=== PATIENT | male | born 1970 | race Caucasian/White ===

== ENCOUNTER 2016-03-28 13:05 | Inpatient (IN) | payer OTHER ==
[2016-03-28 14:59] LABS: Hematocrit 33.5 % (42.0-52.0); Hemoglobin 10.6 gm/dL (13.5-18.0); Mean Cell Volume 83.5 fl (78-100); Mean Corpuscular Hemoglobin 26.4 pg (27-31); Mean Corpuscular Hgb Conc 31.6 g/dl (32-36); Mean Platelet Volume 9.7 fl (6.0-9.5); Neutrophil # 11.8 K/mm3 (1.3-6.0); Neutrophil % 83.4 % (42-75.0); Platelet Count 340 K/mm3 (150-450); Red Blood Count 4.01 M/mm3 (4.7-6.0); Red Cell Distribution Width 13.9 % (11.5-14.0); White Blood Count 14.1 K/mm3 (4.0-10.5)
[2016-03-28 15:12] LABS: Albumin * 2.7 gm/dl (3.4-5.0); Anion Gap 11.8 mmol/L (6.8-13.8); BUN/Creatinine Ratio 13.4 (9.0-21.6); Bilirubin, Total 0.6 mg/dL (0.0-1.1); Ca. Corrected For Albumin 9.4 mg/dL (8.4-10.2); Calcium * 8.7 mg/dL (7.9-10.9); Carbon Dioxide 28.1 mmol/L (24-32.6); Potassium 3.9 mmol/L (3.4-4.6); Total Protein 8.9 gm/dL (6.2-8.2)
[2016-03-28 15:14] LABS: CRP 12.9 mg/dL (0.0-0.9)
--- NOTE | 2016-03-28 17:56 | ERNOTE ---
Integumentary HPI - Narrative Date of Service: 03/28/16 - General Time Seen by Provider: 03/28/16 17:32 Source: patient Exam Limitations: no limitations - Immun/Allergies/Home Medications Immunizations: IMMUNIZATION HX Immunizations Up to Date Yes History of Influenza Vaccine Yes Hx Pneumococcal Vaccination Yes Allergies/Adverse Reactions: Allergies Allergy/AdvReac Type Severity Reaction Status Date / Time gabapentin AdvReac Mild HYPOTENSION, Verified 02/26/16 15:08 NAUSEA, DIZZINESS WITH INCREASED DOSE Home Medications: HOME MEDICATIONS Insulin Glargine,Hum.rec.anlog [Lantus] 45 units SC QPM 08/10/14 [Last Taken 04/09] Insulin Lispro [Humalog] 16 units SC TIDWM 07/26/15 [Last Taken Unknown] - History of Present Illness Narrative: Pt. comes in with c/o worsening cellulitis and L foot ulcer. Pt. was treated inpatient for this a month ago and has not followed up since being discharged. Pt. states that two days ago he noticed the pain and redness spreading to his knee and he was feeling weak and fevered. Review of Systems - Review of Systems Constitutional: Present: recent illness, fever, chills, weakness, fatigue, malaise EYE: Present: no symptoms reported ENT: Present: no symptoms reported Respiratory: Present: no symptoms reported. Absent: shortness of breath, cough , wheezing Cardiology: Present: no symptoms reported. Absent: chest pain, palpitations, edema Gastrointestinal/Abdominal: Present: no symptoms reported Genitourinary: Present: no symptoms reported Musculoskeletal: Present: muscle pain - L LE. Absent: joint pain Skin: Present: rash - LLE, lesions - L great toe dorsum silver dollar size ulcer Neurological: Present: dizziness/light-headedness, weakness. Absent: numbness, tingling All Other Systems: All systems neg except as marked - Patient's Past Medical History Patient History - Medical: Kidney stone Patient History - Cardiac/Respiratory: Hypertension, Hyperlipidemia, Peripheral Vascular Disease Patient History - Cancer: No Hx of Cancer Patient History - Surgical Procedures: T & A, Other - Family History Mother Family History - Medical: Diabetes Type 2, Hypothyroidism Family History - Cardiac/Respiratory: Hypertension Family History - Cancer: No Hx of cancer Father Family History - Medical: Kidney stone Family History - Cardiac/Respiratory: Atrial Fibrillation Family History - Cancer: No Hx of cancer - Social History Living Situations: home Smoking Status: Former smoker Alcohol Use: none Drug Use: none Physical Exam - Physical Exam General Appearance: Present: wd/wn, no apparent distress, lethargic Eye Exam: Normal inspection: bilateral, PERRL: bilateral, EOMI: bilateral Ears, Nose, Throat: Present: normal ENT inspection, hearing grossly normal, normal pharynx Neck: Present: normal inspection, nontender. Absent: lymphadenopathy (R), lymphadenopathy (L) Respiratory: Present: no respiratory distress, normal breath sounds, no accessory muscle use, chest nontender, lungs clear Cardiovascular/Chest: Present: regular rate, rhythm, no murmur, normal peripheral pulses Gastrointestinal/Abdominal: Present: normal bowel sounds, nontender, nondistended, soft, no organomegaly Back Exam: Present: normal inspection, normal range of motion, no CVA tenderness , no vertebral tenderness Extremity Exam: Present: extremity edema - LLE firm, other - redness from toes to knee Neurological Exam: Present: alert, oriented, normal mood/affect, no motor/ sensory deficits, director digital catalogue II-XII nml as tested, normal cerebellar test Skin Exam: Present: normal color, warm/dry, other - ulcer proximal to L great toe phalanx with purulent drainage ED Progress - Date and Time Seen: Date and Time: 03/28/16 19:[address] Starks and silvana pt. is worsening and having elevated CRP and ESR will admit for acute treatment of cellulitis. - Results and Orders Patient's Lab Results:: I have reviewed the patient's lab results. - Vital Signs Patient's Vital Signs:: I have reviewed the patient's vital signs. Vital Signs: Vital Signs 03/28/16 03/28/16 14:25 17:43 Temperature 38.6 C H Pulse Rate 108 H 106 H Respiratory 20 19 Rate Blood Pressure 142/68 139/65 O2 Sat by Pulse 96 97 Oximetry - Progress/Reassessment Chief Complaint: Cellulitis Departure Clinical Impression: Diabetic ulcer of foot associated with diabetes mellitus due to underlying condition, limited to breakdown of skin, Cellulitis of left leg - Departure Disposition: [facility] Condition: Serious Referrals: David Starks DO [Primary Care Provider] -
[2016-03-28] MEDS: SODIUM CHLORIDE IV PRN ×4 (18:42→23:17)
[2016-03-28] MEDS ORDERED: VANCOMYCIN HCL 1 GM in DEXTROSE 5 % IN WATER 250 ML IV SCH ×2 (21:00)
--- NOTE | 2016-03-28 21:15 | HP ---
Chief Complaint - Chief Complaint Date of Service: 03/28/16 Time of Service: 21:02 Chief Complaint: Left foot and leg redness History of Present Illness: Jarod is a 45 yo poorly controlled diabetic with recurrent foot ulcers. He was recently treated a couple weeks ago with bactrim for cellulitis stemming from an ulcer on his left foot. He had reported improvement with bactrim but over the last 24hours his redness, pain, and warmth returned. He first noticed this in his left great toe but it quickly worked its way of his leg. He has not had any change in the wound over his left first mtp joint. He reports it has not been healing, but no bleeding or drainage. He has been keeping it clean and covered. He denies fever. Reports feeling weak today and sugars have been elevated more over the past 2 days. Sugars were previously getting better with sugars in the low to mid 100s but the last two days have been over 200. - Patient's Past Medical History Patient History - Medical: Diabetes Type 2 Insulin Dependent, Kidney stone Patient History - Cardiac/Respiratory: Hypertension, Hyperlipidemia, Peripheral Vascular Disease Patient History - Cancer: No Hx of Cancer Patient History - Surgical Procedures: T & A, Other - Family History Mother Family History - Medical: Diabetes Type 2, Hypothyroidism Family History - Cardiac/Respiratory: Hypertension Family History - Cancer: No Hx of cancer Father Family History - Medical: Kidney stone Family History - Cardiac/Respiratory: Atrial Fibrillation Family History - Cancer: No Hx of cancer - Social History Living Situations: parents Smoking Status: Never smoker Have you smoked in the past 12 months: No Do you dip or chew tobacco: No Patient requests Smoking Cessation Consult: No Initiate information on Smoking Cessation: No Alcohol Use: none Drug Use: none Review Of Systems (GEN) - Review of Systems Generalized/Overall Review: Present: Weakness, Chills. Absent: Fever EENTM: Present: No Symptoms Reported Respiratory: Present: No Symptoms Reported Cardiac: Present: No Symptoms Reported Abdominal: Present: Nausea, Other - Decreased appetite Genitourinary: Present: No Symptoms Reported Musculoskeletal: Present: Muscle Pain Neurological: Present: No Symptoms Reported Skin: Present: Change in Color Allergies/Adverse Reactions: Allergies Allergy/AdvReac Type Severity Reaction Status Date / Time gabapentin AdvReac Mild HYPOTENSION, Verified 02/26/16 15:08 NAUSEA, DIZZINESS WITH INCREASED DOSE Home Medications: HOME MEDICATIONS Insulin Glargine,Hum.rec.anlog [Lantus] 45 units SC QPM 08/10/14 [Last Taken 04/09] Insulin Lispro [Humalog] 16 units SC TIDWM 07/26/15 [Last Taken Unknown] Exam - Exam Vital Signs: Vital Signs - Last Taken Temp 37.2 C 03/28/16 19:45 Pulse 93 03/28/16 19:45 Resp 20 03/28/16 19:45 BP 133/70 03/28/16 19:45 Pulse Ox 93 03/28/16 19:45 Constitutional: Present: Alert, Oriented x3, Cooperative ENT Exam: Present: hearing grossly normal Eye Exam: bilateral eye: normal inspection Respiratory: Present: lungs clear, normal breath sounds Cardiovascular/Chest: Present: regular rate, rhythm, no murmur Abdomen: Present: Normal bowel sounds, soft, nontender, nondistended Skin Exam: Present: other - Left 1st MTP joint, plantar surface with quarter sized ulcer with clean, dry bed approximately 3mm deep. No bleeding or drainge. Surrounding erythema from this site to tip of great toe and up foot and leg to mid lower leg. Warmth throughout this area and tenderness to palpation. No drainage. Diagnostic Studies: Laboratory Results WBC 14.1 K/mm3 (4.0-10.5) H 03/28/16 14:52 RBC 4.01 M/mm3 (4.7-6.0) L 03/28/16 14:52 Hgb 10.6 gm/dL (13.5-18.0) L 03/28/16 14:52 Hct 33.5 % (42.0-52.0) L 03/28/16 14:52 MCV 83.5 fl (78-100) 03/28/16 14:52 MCH 26.4 pg (27-31) L 03/28/16 14:52 MCHC 31.6 g/dl (32-36) L 03/28/16 14:52 RDW 13.9 % (11.5-14.0) 03/28/16 14:52 Plt Count 340 K/mm3 (150-450) 03/28/16 14:52 MPV 9.7 fl (6.0-9.5) H 03/28/16 14:52 Immature Gran % (Auto) 0.50 % (0.001-0.429) H 03/28/16 14:52 Immature Gran # (Auto) 0.07 K/mm3 (0.000-0.0310) H 03/28/16 14:52 Neutrophils % 83.4 % (42-75.0) H 03/28/16 14:52 Lymphocytes % 10.7 % (20-51) L 03/28/16 14:52 Monocytes % 5.1 % (0.0-9) 03/28/16 14:52 Eosinophils % 0.0 % (0.0-3.0) 03/28/16 14:52 Basophils % 0.3 % (0.0-1.0) 03/28/16 14:52 Nucleated RBC % 0.0 k/mm3 (0-1) 03/28/16 14:52 Neutrophils # 11.8 K/mm3 (1.3-6.0) H 03/28/16 14:52 Lymphocytes # 1.5 k/mm3 (1.5-3.5) 03/28/16 14:52 Monocytes # 0.7 k/mm3 (0.0-1.0) 03/28/16 14:52 Eosinophils # 0.0 k/mm3 (0.0-0.7) 03/28/16 14:52 Absolute Basophils 0.0 k/mm3 (0.0-0.1) 03/28/16 14:52 ESR 99 mm/hr (0-10) H 03/28/16 14:52 Sodium 135 mmol/L (132-142) 03/28/16 14:52 Plasma Sodium 136 mmol/L (130-142) 03/28/16 14:52 Potassium 3.9 mmol/L (3.4-4.6) 03/28/16 14:52 Chloride 99 mmol/L (97-106) 03/28/16 14:52 Carbon Dioxide 28.1 mmol/L (24-32.6) 03/28/16 14:52 Anion Gap 11.8 mmol/L (6.8-13.8) 03/28/16 14:52 BUN 15 mg/dL (6-23) 03/28/16 14:52 Creatinine 1.12 mg/dL (0.4-1.4) 03/28/16 14:52 Est GFR (Non-Af Amer) 75 mL/min (60-130) 03/28/16 14:52 BUN/Creatinine Ratio 13.4 (9.0-21.6) 03/28/16 14:52 Random Glucose 186 mg/dL (70-110) H 03/28/16 14:52 Lactic Acid, Venous 1.1 mmol/L (0.4-2.0) 03/28/16 17:45 Calcium 8.7 mg/dL (7.9-10.9) 03/28/16 14:52 Calcium Adj for Albumin 9.4 mg/dL (8.4-10.2) 03/28/16 14:52 Total Bilirubin 0.6 mg/dL (0.0-1.1) 03/28/16 14:52 AST 10 U/L (0-48) 03/28/16 14:52 ALT 12 U/L (19-67) L 03/28/16 14:52 Alkaline Phosphatase 113 U/L (50-170) 03/28/16 14:52 C-Reactive Prot, Quant 12.9 mg/dL (0.0-0.9) H 03/28/16 14:52 Total Protein 8.9 gm/dL (6.2-8.2) H 03/28/16 14:52 Albumin 2.7 gm/dl (3.4-5.0) L 03/28/16 14:52 Assessment/Plan - Assessment/Plan (1) Cellulitis of left leg Assessment: Jarod is a 45 yo male with failed outpatient cellulitis. Hx of MRSA. Recently on Bactrim. Will obtain wound and blood cultures. WBC elevated at 14K. Will treat with Vancomycin, pharmacy to dose. Cellulitis is originating from left 1st MTP. Will consult Podiatry as Dr. Roman is familiar with this patient. The wound has a clean bed and looks stable but unhealed from last visit in clinic. It is currently quarter sized. Will admit to acute inpatient as he has failed outpatient treatment recently being on bactrim with history of MRSA. Expect >2 midnights for IV antibiotics, monitor for improvement, and consider transitioning to oral antibiotics. Problem: Acute (2) Diabetic ulcer of foot associated with diabetes mellitus due to underlying condition, limited to breakdown of skin Problem: Acute
[2016-03-28] MEDS: INSULIN GLARGINE,HUM.REC.ANLOG 100 UNITS/ML VIAL SC SCH (22:09)
[2016-03-29] MEDS: VANCOMYCIN HCL 2 GM in DEXTROSE 5 % IN WATER 500 ML IV SCH ×6 (00:21→21:09)
[2016-03-29 05:12] LABS: Hematocrit 30.9 % (42.0-52.0); Hemoglobin 9.7 gm/dL (13.5-18.0); Mean Cell Volume 84.4 fl (78-100); Mean Corpuscular Hemoglobin 26.5 pg (27-31); Mean Corpuscular Hgb Conc 31.4 g/dl (32-36); Mean Platelet Volume 9.7 fl (6.0-9.5); Neutrophil # 7.9 K/mm3 (1.3-6.0); Neutrophil % 74.9 % (42-75.0); Platelet Count 305 K/mm3 (150-450); Red Blood Count 3.66 M/mm3 (4.7-6.0); White Blood Count 10.5 K/mm3 (4.0-10.5)
[2016-03-29 05:29] LABS: Albumin * 2.5 gm/dl (3.4-5.0); Anion Gap 11.4 mmol/L (6.8-13.8); BUN/Creatinine Ratio 13.9 (9.0-21.6); Bilirubin, Total 0.5 mg/dL (0.0-1.1); Ca. Corrected For Albumin 9.2 mg/dL (8.4-10.2); Calcium * 8.3 mg/dL (7.9-10.9); Carbon Dioxide 26.3 mmol/L (24-32.6); Potassium 3.7 mmol/L (3.4-4.6); Total Protein 8.3 gm/dL (6.2-8.2)
[2016-03-29] MEDS ORDERED: HYDROcodone/ACETAMINOPHEN 1 EACH TABLET PO PRN (06:59)
[2016-03-29] MEDS ORDERED: VANCOMYCIN HCL LEVEL XX ONE (07:15)
[2016-03-29] MEDS ORDERED: INSULIN LISPRO 100 UNITS/ML VIAL SC SCH (09:00)
[2016-03-29] MEDS: INSULIN LISPRO 100 UNITS/ML VIAL SC SCH ×2 (11:29→17:20)
[2016-03-29] MEDS: INSULIN GLARGINE,HUM.REC.ANLOG 100 UNITS/ML VIAL SC SCH (17:20)
--- NOTE | 2016-03-29 17:33 | CONS ---
- Reason for consultation (1) Diabetic foot ulcer Date of Service: 03/29/16 HPI - General Date of Service: 03/29/16 Narrative: Pt evaluated at bedside. He was admitted from the ED yesterday with c/o increased redness and swelling about his LLE. He has been being treated outpatient by Dr. Starks for h/o recurrent cellulitis to this leg. Has previously been on Bactrim with resolution of symptoms, however once off medication his cellulitis returns. He has h/o chronic DM ulcerations to his b/ l plantar feet that I have treated in the past, however due to insurance situations he has been unable to follow up for the past several weeks. I was consulted for care of the ulcerations as well as dressing recommendations. Source: patient - History of Present Illness Allergies/Adverse Reactions: Allergies gabapentin Adverse Reaction (Mild, Verified 02/26/16 15:08) HYPOTENSION, NAUSEA, DIZZINESS WITH INCREASED DOSE Home Medications: Home Medications Medication Instructions Recorded Last Taken Insulin Glargine,Hum.rec.anlog 45 units SC QPM 08/10/14 10/24/14 [Lantus] Insulin Lispro [Humalog] 16 units SC TIDWM 07/26/15 Unknown - Patient's Past Medical History Patient History - Medical: Diabetes Type 2 Insulin Dependent, Kidney stone Patient History - Cardiac/Respiratory: Hypertension, Hyperlipidemia, Peripheral Vascular Disease Patient History - Cancer: No Hx of Cancer Patient History - Surgical Procedures: T & A, Other - Family History Mother Family History - Medical: Diabetes Type 2, Hypothyroidism Family History - Cardiac/Respiratory: Hypertension Family History - Cancer: No Hx of cancer Father Family History - Medical: Kidney stone Family History - Cardiac/Respiratory: Atrial Fibrillation Family History - Cancer: No Hx of cancer - Social History Living Situations: parents Smoking Status: Never smoker Have you smoked in the past 12 months: No Do you dip or chew tobacco: No Patient requests Smoking Cessation Consult: No Initiate information on Smoking Cessation: No Alcohol Use: none Drug Use: none Procedures DETACHMENT AT LEFT 2ND TOE, COMPLETE, OPEN APPROACH (08/26/15) DETACHMENT AT LEFT 3RD TOE, COMPLETE, OPEN APPROACH (08/26/15) DETACHMENT AT RIGHT 2ND TOE, COMPLETE, OPEN APPROACH (04/13/15) EXCISION OF L FOOT SUBCU/FASCIA, OPEN APPROACH (08/26/15) EXCISION OF LEFT METATARSAL, OPEN APPROACH (07/29/15) FOOT JOINT STRUCT DIVIS (10/25/14) OTH ARTHROTOMY-FOOT/TOE (10/25/14) RESECTION OF LEFT METATARSAL, OPEN APPROACH (04/13/15) Medications - Medications Current Medications: Current Medications Acetaminophen/Hydrocodone Bitart (Eagle 5-325) 1 each PO Q6H PRN PRN Reason: Pain Stop: 04/28/16 07:00 Last Admin: 03/29/16 07:13 Dose: 1 each Vancomycin HCl 2 gm/ Dextrose/ (Water) 500 mls @ 140 mls/hr IV Q12H KRUNAL Stop: 04/27/16 22:01 Last Admin: 03/29/16 10:06 Dose: 140 mls/hr Insulin Glargine (Lantus) 45 units SC QPM KRUNAL Stop: 04/27/16 21:01 Last Admin: 03/29/16 17:20 Dose: 45 units Insulin Human Lispro (Humalog) 16 units SC ACINS KRUNAL Stop: 04/28/16 09:01 Last Admin: 03/29/16 17:20 Dose: Not Given Review of Systems - Review of Systems Neurological: Present: Numbness Skin: Present: Other - Erythema to LLE. Bilateral foot ulcerations Physical Examination - Exam Vital Signs: Vital Signs - Last Taken Temp 36.6 C 03/29/16 15:21 Pulse 68 03/29/16 15:21 Resp 20 03/29/16 15:21 BP 125/79 03/29/16 15:21 Pulse Ox 100 03/29/16 15:21 O2 Oxygen Delivery Method Room Air Constitutional: Present: Alert, Oriented x3, Cooperative, No distress Peripheral Pulses: dorsalis-pedis (R): 2+, dorsalis-pedis (L): 2+ Extremity: Present: lower extremity edema Skin Exam: Present: other - Erythema LLE extending from foot to just distal to the knee. Areas of weeping from the skin secondary to edema. Ulceration to the plantar 1st metatarsal head of the left foot measuring 3.2 x 3.2 x 0.2 cm. No tunneling or undermining. Loss of tissue to full thickness with exposure of subcutaneous fat layer. Base red, granular. Surrounding tissue with callus formation and erythema. Minimal serous drainage, no malodor. No exposed tendon or bone. Ulceration to plantar 1st metatarsal head right foot measuring 1.8 x 1.2 x 0.1 cm. No tunneling or undermining. Loss of tissue to full thickness with exposure of subcutaneous fat layer. Base red, granular. Surrounding tissue with callus formation. Minimal serous drainage, no malodor. No exposed tendon or bone. Neurologic: Present: sensory deficit Appearance: Present: appropriate appearance - Results and Findings: Lab/Microbiology results last 24 hrs: Abnormal/Pending Laboratory Last 24 HRS 03/29/16 03/29/16 05:10 05:10 RBC 3.66 L Hgb 9.7 L Hct 30.9 L MCH 26.5 L MCHC 31.4 L MPV 9.7 H Immature Gran # (Auto) 0.04 H Lymphocytes % 18.3 L Neutrophils # 7.9 H Random Glucose 166 H ALT 13 L Total Protein 8.3 H Albumin 2.5 L Culture 03/28/16 21:06 - Final Nares MRSA Positive 03/28/16 22:48 Wound Culture - Preliminary Foot - Left Ruling Out Pathogen - Assessments/Findings (1) Diabetic foot ulcer Diagnosis(s): Ulcerations of the b/l feet debrided to subcutaneous tissue utilizing a #15 blade excising all hyperkeratotic tissue from the periphery of the ulcerations revealing healthy bleeding subcutaneous wound margins. Surfaces also debrided with #15 blade removing all devitalized tissue over the surfaces revealing healthy bleeding subcutaneous wound beds. Hemostasis with compression. Pt tolerated well without complication. Dressed with dry gauze, cherrie, and HILDA bandage. Will begin daily dressing changes consisting of Aquacel Ag, dry gauze, cherrie, and HILDA bandage. Feet are to be washed daily with soap and water and dried with clean towels prior to application of new dressings. Will continue ABX as prescribed by PCP for cellulitis to LLE. Will sign off on this pt at this time. Please re-consult if any changes in status of ulcerations develop. Problem: Chronic Qualifiers: Diabetes mellitus type: type 2 Laterality: bilateral Qualified Code(s): E11.621 - Type 2 diabetes mellitus with foot ulcer; L97.519 - Non-pressure chronic ulcer of other part of right foot with unspecified severity; L97.529 - Non-pressure chronic ulcer of other part of left foot with unspecified severity
--- NOTE | 2016-03-29 21:18 | PN ---
Subjective - Date and Time Seen Date: 03/29/16 Time: 17:00 Subjective Narrative: Patient reports improved pain, less redness. No fever, chills, nausea, or vomiting. Objective - Vitals Vitals: Last Vital Signs Temp 36.6 C 03/29/16 19:11 Pulse 82 03/29/16 19:11 Resp 18 03/29/16 19:11 BP 119/79 03/29/16 19:11 Pulse Ox 98 03/29/16 19:11 - Abnormal Lab Findings Abnormal Lab Findings: Abnormal Lab Results 03/29/16 03/29/16 Range/Units 05:10 05:10 RBC 3.66 L (4.7-6.0) M/mm3 Hgb 9.7 L (13.5-18.0) gm/dL Hct 30.9 L (42.0-52.0) % MCH 26.5 L (27-31) pg MCHC 31.4 L (32-36) g/dl MPV 9.7 H (6.0-9.5) fl Immature Gran # (Auto) 0.04 H (0.000-0.0310) K/mm3 Lymphocytes % 18.3 L (20-51) % Neutrophils # 7.9 H (1.3-6.0) K/mm3 Random Glucose 166 H (70-110) mg/dL ALT 13 L (19-67) U/L Total Protein 8.3 H (6.2-8.2) gm/dL Albumin 2.5 L (3.4-5.0) gm/dl - Exam Constitutional: Present: Alert, Oriented x3, Cooperative ENT Exam: Present: hearing grossly normal Respiratory: Present: lungs clear, normal breath sounds Cardiovascular/Chest: Present: regular rate, rhythm, no murmur Abdomen: Present: Normal bowel sounds, soft, nontender, nondistended Skin Exam: Present: other - Decreased erythema today, decreased swelling. Quarter sized ulcer to left 1st MTP Assessment/Plan - Problems/Diagnosis (1) Cellulitis of left leg Problem: Acute Narrative: Improved on Vancomycin. Recently treated with bactrim as outpatient. Continue Vanco, pharmacy dosing. Dr. Roman consulted for further recommendations on diabetic foot ulcer and cellulitsi. (2) Diabetic ulcer of foot associated with diabetes mellitus due to underlying condition, limited to breakdown of skin Problem: Acute
[2016-03-30] MEDS: INSULIN LISPRO 100 UNITS/ML VIAL SC SCH ×3 (07:24→17:45)
[2016-03-30] MEDS ORDERED: VANCOMYCIN HCL LEVEL XX ONE (09:30)
[2016-03-30] MEDS: SULFAMETHOXAZOLE/TRIMETHOPRIM 1 TAB TABLET PO SCH ×2 (09:55→20:06)
[2016-03-30] MEDS: INSULIN GLARGINE,HUM.REC.ANLOG 100 UNITS/ML VIAL SC SCH (17:46)
--- NOTE | 2016-03-31 00:12 | PN ---
Subjective - Date and Time Seen Date: 03/30/16 Time: 16:30 Subjective Narrative: Reports less pain and swelling. No fever or chills. Objective - Vitals Vitals: Last Vital Signs Temp 37.0 C 03/30/16 18:12 Pulse 73 03/30/16 18:12 Resp 20 03/30/16 18:12 BP 143/71 03/30/16 18:12 Pulse Ox 99 03/30/16 18:12 - Exam Constitutional: Present: Alert, Oriented x3, Cooperative Respiratory: Present: lungs clear, normal breath sounds Cardiovascular/Chest: Present: regular rate, rhythm, no murmur Skin Exam: Present: other - Erythema left foot to knee, mild, similar to yesterday Assessment/Plan - Problems/Diagnosis (1) Cellulitis of left leg Problem: Acute Narrative: Wound culture shows sensitivity to bactrim. Discontinued vancomycin, will start bactrim and if cellulitis continues to improve will plan to discharge in the next 1-2 days. (2) Diabetic ulcer of foot associated with diabetes mellitus due to underlying condition, limited to breakdown of skin Problem: Acute
[2016-03-31] MEDS: INSULIN LISPRO 100 UNITS/ML VIAL SC SCH ×3 (07:47→17:18)
[2016-03-31] MEDS: SULFAMETHOXAZOLE/TRIMETHOPRIM 1 TAB TABLET PO SCH (09:47)
[2016-03-31 14:18] VITALS: BP 130/70
[2016-03-31 14:57] LABS: Hematocrit 30.7 % (42.0-52.0); Hemoglobin 9.5 gm/dL (13.5-18.0); Mean Cell Volume 84.3 fl (78-100); Mean Corpuscular Hemoglobin 26.1 pg (27-31); Mean Corpuscular Hgb Conc 30.9 g/dl (32-36); Mean Platelet Volume 9.4 fl (6.0-9.5); Neutrophil # 3.6 K/mm3 (1.3-6.0); Neutrophil % 57.9 % (42-75.0); Platelet Count 349 K/mm3 (150-450); Red Blood Count 3.64 M/mm3 (4.7-6.0); Red Cell Distribution Width 13.7 % (11.5-14.0); White Blood Count 6.3 K/mm3 (4.0-10.5)
[2016-03-31 15:16] LABS: Albumin * 2.6 gm/dl (3.4-5.0); Anion Gap 9.9 mmol/L (6.8-13.8); BUN/Creatinine Ratio 12.3 (9.0-21.6); Bilirubin, Total 0.2 mg/dL (0.0-1.1); Ca. Corrected For Albumin 9.7 mg/dL (8.4-10.2); Calcium * 8.9 mg/dL (7.9-10.9); Carbon Dioxide 31.1 mmol/L (24-32.6); Total Protein 8.7 gm/dL (6.2-8.2)
[2016-03-31] MEDS: INSULIN GLARGINE,HUM.REC.ANLOG 100 UNITS/ML VIAL SC SCH (17:19)
--- NOTE | 2016-03-31 17:44 | DS ---
(1) Cellulitis of left leg Problem: Acute (2) Diabetic ulcer of foot associated with diabetes mellitus due to underlying condition, limited to breakdown of skin Problem: Acute Description of Stay: Jarod is a 45 yo male with uncontrolled diabetes who recently had lost his insurance and was not able to afford his insulin. Because of this he has had more difficulties than usual keeping sugars controlled and has had bilateral foot ulcers from diabetes that have poor healing. He has repeatedly had cellulitis of his left lower leg secondary to a diabetic foot ulcer on the plantar surface of his left foot. He had just recently stopped a course of bactrim that had resolved a prior case of cellulitis. Due to recently being on bactrim he was readmitted with another episode of cellulitis and history of MRSA and started on vancomycin. Culture was taken of left foot ulcer which grew MRSA sensitive to Bactrim. He was changed from vancomycin to Bactrim and with improvement of erythema, swelling, and pain he was discharged to home. Will plan to continue bactrim until ulcer is healed as it appears this continues to seed bacteria into cellulitis when he is off antibiotics. Procedures Performed: none Discharge Disposition: Home self care Disposition: Home self-care Condition: Good Discharge Activity: Activity as tolerated Discharge Diet: Consistent carbs Referrals: David Starks DO [Primary Care Provider] - One Week Problem Oriented Discharge Instructions to Patient/Family: Diabetes and Foot Care, Cellulitis, Adult, [id number] Prescriptions (Any new or edited meds): Sulfamethoxazole/Trimethoprim [Bactrim Ds] 1 tab PO BID #60 tablet Complete Home Medications List: Complete Home Medication List: Insulin Glargine,Hum.rec.anlog [Lantus] 48 units SC QPM 08/10/14 Insulin Lispro [Humalog] 16 units SC TIDWM 07/26/15 Sulfamethoxazole/Trimethoprim [Bactrim Ds] 1 tab PO BID #60 tablet 03/31/16 Silver/Foam Bandage [Aquacel Ag Foam 4"X4" Dressing] 1 each TP DAILY 04/27/16
== END 2016-03-31 18:40 | disposition home or self-care (01) | DRG 623 ==
LOC: ER 13:05 → MS 18:57
PROVIDERS: ADMIT Family Medicine; ATTEND Family Medicine
PROC: 0JBR0ZZ Excision of Left Foot Subcutaneous Tissue and Fascia, Open Approach (ICD-10-PCS; principal; 2016-03-29)
DX: E11.621 Type 2 diabetes mellitus with foot ulcer (principal); L97.421 Non-pressure chronic ulcer of left heel and midfoot limited to breakdown of skin; L03.116 Cellulitis of left lower limb; E11.65 Type 2 diabetes mellitus with hyperglycemia; I10 Essential (primary) hypertension; E78.5 Hyperlipidemia, unspecified; Z79.4 Long term (current) use of insulin; Z86.14 Personal history of Methicillin resistant Staphylococcus aureus infection

== ENCOUNTER 2016-06-09 09:46 | Inpatient (IN) | payer OTHER ==
[2016-06-09] MEDS ORDERED: ONDANSETRON HCL/PF 2 MG/ML VIAL IV ONE (10:37)
[2016-06-09] MEDS ORDERED: KETOROLAC TROMETHAMINE 30 MG/ML VIAL IV ONE (10:37)
--- OUTSIDE RECORDS SUMMARY | 2016-06-09 10:47 | XMS REPORT | Continuity of Care Document ---
:1970 Author Organization [facility] ([facility] Address [place] [address] Phone [phone] Care Team Providers Name Role Phone Adeline Pedroza Primary Care Provider [phone] Source Comments This disclosure is being made pursuant to the Care Everywhere program, applicable federal and state laws, and may not contain all informaitonavailable regarding this patient.[facility] ([facility]) Active Allergies and Adverse Reactions No Known Allergies Current Medications Prescription Sig. Disp. Refills Start Date End Date Status aspirin 325 mg tablet Take 325 mg by mouth Active as needed for Pain. insulin glargine Take 25 units in AM 10 mL 2 08/05/2014 Active (LanTUS) 100 unit/mL and 40 units in PM injection vial insulin aspart Inject 10 Units 20 mL 11 08/05/2014 Active (NovoLOG FLEXPEN) 100 subcutaneously 3 unit/mL (3 mL) times daily before injection pen meals aspirin 81 mg EC Take 81 mg by mouth Active tablet daily cholecalciferol Take 5,000 Units by Active (VITAMIN D3) PO mouth daily levofloxacin 500 mg Take 1 tablet (500 10 tablet 0 02/02/2015 Active tablet mg total) by mouth daily atorvastatin 40 mg Take 1 tablet (40 mg 30 tablet 11 02/02/2015 Active tablet total) by mouth every evening MULTIVITS,CA,MINERALS Take 1 tablet by Active /IRON/FA (THERA M mouth daily PLUS (FERROUS FUMARAT) PO) amoxicillin-clavulana Take 1 tablet by Active te 875-125 mg per mouth 2 times daily tablet Active Problems Problem Noted Date Orthostatic hypotension 01/28/2015 Right foot pain 10/20/2014 Right foot ulcer 10/20/2014 Diabetes mellitus type 2, uncontrolled 12/27/2011 Obstructive sleep apnea 12/27/2011 Morbid obesity 12/27/2011 HTN (hypertension) 12/27/2011 Diabetic nephropathy 12/27/2011 Peripheral vascular disease 12/27/2011 Resolved Problems Problem Noted Date Resolved Date Orthostatic hypotension 01/25/2015 01/26/2015 Dizziness 01/25/2015 01/26/2015 Immunizations Name Dates Previously Given Next Due Influenza, unspecified 12/18/2011 Pneumococcal Polysaccharide, PPSV23 (Pneumovax 23) 01/26/2015 Tdap 11/11/2013 Social History Tobacco Use Types Packs/Day Years Used Date Never Smoker Smokeless Tobacco: Current User Chew Alcohol Use Drinks/Week oz/Week Comments No 2x year Last Filed Vital Signs Vital Sign Reading Time Taken Blood Pressure 122/76 08/13/2015 11:21 AM CDT Pulse 79 02/16/2015 1:37 PM BILLBOARD MECHANIC Temperature 36.6 C (97.8 F) 02/06/2015 11:06 AM BILLBOARD MECHANIC Respiratory Rate 16 02/06/2015 11:06 AM BILLBOARD MECHANIC Height 1.88 m (6' 2") 01/29/2015 12:25 AM BILLBOARD MECHANIC Weight 147.238 kg (324 lb 9.6 oz) 02/06/2015 11:06 AM BILLBOARD MECHANIC Body Mass Index 41.66 02/06/2015 11:06 AM BILLBOARD MECHANIC Oxygen Saturation 98% 02/16/2015 1:37 PM BILLBOARD MECHANIC Plan of Care Health Maintenance Due Date Last Done Comments Hepatitis B Vaccine (1 of 3 - 1970 Primary Series) MMR Vaccine 08/05/1987 DIABETIC: Foot Exam 01/03/2012 DIABETIC: Retinal Eye Exam 01/03/2012 DIABETIC: Microalbumin 05/30/2013 05/30/2012 DIABETIC: Hemoglobin A1C 07/18/2015 01/16/2015, Additional history exists 09/30/2014, 05/30/2012 Influenza Vaccine: Seasonal 10/25/2015 12/18/2011 (#1) DIABETIC: Cholesterol 01/17/2016 01/16/2015, 05/30/2012 Diabetic: Hdl 01/17/2016 01/16/2015, 05/30/2012 Diabetic: Ldl 01/17/2016 01/16/2015, 05/30/2012 DIABETIC: Triglycerides 01/17/2016 01/16/2015, 05/30/2012 Td Vaccine 11/12/2023 11/11/2013 Tdap Vaccine Completed 11/11/2013 Pneumococcal Vaccine Completed 01/26/2015 Results from Last 3 Months Not on file
[2016-06-09] MEDS ORDERED: KETOROLAC TROMETHAMINE 30 MG/ML VIAL ONE (11:03)
[2016-06-09] MEDS ORDERED: ONDANSETRON HCL/PF 2 MG/ML VIAL ONE (11:03)
[2016-06-09] MEDS: NORMAL SALINE 1,000 ML IV SCH ×3 (11:12→20:03)
[2016-06-09 11:13] LABS: Hematocrit 36.6 % (42.0-52.0); Hemoglobin 11.6 gm/dL (13.5-18.0); Mean Cell Volume 83.9 fl (78-100); Mean Corpuscular Hemoglobin 26.6 pg (27-31); Mean Corpuscular Hgb Conc 31.7 g/dl (32-36); Mean Platelet Volume 9.7 fl (6.0-9.5); Neutrophil # 11.3 K/mm3 (1.3-6.0); Neutrophil % 84.9 % (42-75.0); Platelet Count 293 K/mm3 (150-450); Red Blood Count 4.36 M/mm3 (4.7-6.0); Red Cell Distribution Width 15.8 % (11.5-14.0); White Blood Count 13.3 K/mm3 (4.0-10.5)
[2016-06-09 11:18] LABS: Albumin * 3.1 gm/dl (3.4-5.0); Anion Gap 13.6 mmol/L (6.8-13.8); BUN/Creatinine Ratio 16.3 (9.0-21.6); Bilirubin, Total 0.8 mg/dL (0.0-1.1); Ca. Corrected For Albumin 9.2 mg/dL (8.4-10.2); Calcium * 8.8 mg/dL (7.9-10.9); Carbon Dioxide 27.1 mmol/L (24-32.6); Potassium 3.7 mmol/L (3.4-4.6); Total Protein 8.8 gm/dL (6.2-8.2)
--- NOTE | 2016-06-09 11:20 | ERNOTE ---
Integumentary HPI - Narrative Date of Service: 06/09/16 - General Presenting Symptoms: other - Cellulitis Time Seen by Provider: 06/09/16 10:28 Source: patient, family, RN/MD, RN notes reviewed, old records Exam Limitations: no limitations - Immun/Allergies/Home Medications Immunizations: IMMUNIZATION HX Immunizations Up to Date Yes History of Influenza Vaccine Yes Hx Pneumococcal Vaccination Yes Allergies/Adverse Reactions: Allergies Allergy/AdvReac Type Severity Reaction Status Date / Time gabapentin AdvReac Mild HYPOTENSION, Verified 06/09/16 09:58 NAUSEA, DIZZINESS WITH INCREASED DOSE Home Medications: HOME MEDICATIONS Insulin Glargine,Hum.rec.anlog [Lantus] 48 units SC QPM 08/10/14 [Last Taken 04/11] Insulin Lispro [Humalog] 16 units SC TIDWM 07/26/15 [Last Taken 04/27/16] Silver/Foam Bandage [Aquacel Ag Foam 4"X4" Dressing] 1 each TP DAILY 04/27/16 [ Last Taken 04/26/16] - History of Present Illness Narrative: 45 y/o male to ED from home with his father for cellulitis of the right leg. He began having pain in the leg yesterday. He reports that he slept most of the day. The pain is worse today and the lower leg was noted to be red and more edematous than usual. He was seen in the wound clinic by Dr. Roman on 06/06/16. Ulcers on the bottom of both feet were debrided. The left foot is in a cast. The right foot ulcer is dressed with a silver impregnated dressing. He is not currently on antibiotics and is scheduled to f/u in the wound clinic next week. He has also been nauseous today but has not vomited. He reports that his blood glucose was 160 this morning. Date (Duration): 06/08/16 Location: Reports: lower extremity - right Quality: Reports: painful Severity: severe Associated Symptoms: Reports: edema. Denies: swelling/mass/lumps, fever Review of Systems - Review of Systems Constitutional: Present: chills, fatigue, malaise. Absent: recent illness, fever EYE: Present: no symptoms reported ENT: Present: no symptoms reported Respiratory: Absent: shortness of breath, cough Cardiology: Present: edema. Absent: chest pain Gastrointestinal/Abdominal: Present: nausea. Absent: vomiting, diarrhea, abdominal pain Genitourinary: Absent: dysuria, hematuria Musculoskeletal: Absent: joint pain, joint swelling Skin: Present: lesions, change in color. Absent: rash Neurological: Absent: headache, dizziness/light-headedness Endocrine: Present: no symptoms reported Hematologic/Lymphatic: Absent: easy bruising, easy bleeding Psych: Absent: anxiety, depressed - Patient's Past Medical History Patient History - Medical: Diabetes Type 2 Insulin Dependent, Obesity, Other - Diabetic neuropathy, Diabetic foot ulcers, MRSA Patient History - Cardiac/Respiratory: No pertinent hx Patient History - Cancer: No Hx of Cancer Patient History - Surgical Procedures: T & A, Orthopedic - amputations of toes bilaterally, shoulder surgery, I&D Patient History - Other: None - Family History Mother Family History - Medical: Diabetes Type 2, Hypothyroidism Family History - Cardiac/Respiratory: Hypertension Father Family History - Medical: Kidney stone Family History - Cardiac/Respiratory: Atrial Fibrillation - Social History Living Situations: home Abuse History: No History of abuse Psych History: No pertinent hx Smoking Status: Never smoker Alcohol Use: none Drug Use: none - Immunizations Immunizations Up to Date: Yes Hx Pneumococcal Vaccination: Yes History of Influenza Vaccine: Yes Physical Exam - Physical Exam General Appearance: Present: wd/wn, alert, mild distress, obese, other - clean, dressed appropriately, appears uncomfortable Neck: Present: normal inspection, nontender, supple, full range of motion Respiratory: Present: no respiratory distress, no accessory muscle use, lungs clear, decreased breath sounds - d/t patient size Cardiovascular/Chest: Present: regular rate, rhythm, no murmur. Absent: normal peripheral pulses - left pedal pulse not assessed d/t cast, right not palpable Gastrointestinal/Abdominal: Present: nontender, nondistended, soft Extremity Exam: Present: normal range of motion, extremity edema - chronic lower extremity edema but right lower leg is worse than usual, other - right lower leg tender to palpation, warm to touch, limited sensation in foot. Absent : joint swelling Neurological Exam: Present: alert, oriented, normal mood/affect. Absent: no motor/sensory deficits - poor sensation in feet Skin Exam: Present: warm/dry, other - erythema with chronic venous stasis discoloration to left lower leg - foot is dry and scaly but not erythematous or hot to touch, ulcer to bottom of foot appears healthy - pink wound bed, no surrounding erythema ED Progress - Results and Orders Patient's Lab Results:: I have reviewed the patient's lab results. - Vital Signs Patient's Vital Signs:: I have reviewed the patient's vital signs. Vital Signs: Vital Signs 06/09/16 09:52 Temperature 37.1 C Pulse Rate 90 Respiratory 16 Rate Blood Pressure 118/64 - Progress/Reassessment Chief Complaint: Cellulitis Progress:: Improved Plan - Plan Plan: WBC is elevated at 13.3 with elevated lactic acid of 2.6 and procalcitonin of 4.58. Patient reports improvement in pain after Toradol and no nausea after Zofran. Has received 1 L NS bolus and fluids are now running at 126 ml/hr. Blood cultures have been obtained, as well as a culture of the right foot wound. Dr. Campa contacted for admission. Will order Vancomycin and Zosyn. Dr. Roman also notified as she has been seeing the patient in the wound clinic and is familiar with him. Departure Clinical Impression: Cellulitis of right leg, Sepsis due to cellulitis, Diabetic ulcer of both feet associated with type 2 diabetes mellitus - Departure Disposition: [facility] Condition: Stable Referrals: David Starks DO [Primary Care Provider] -
--- OUTSIDE RECORDS SUMMARY | 2016-06-09 12:39 | XMS REPORT | Continuity of Care Document ---
:1970 Author Organization [facility] ([facility]) Address [place] [address] Phone [phone] Care Team Providers Name Role Phone Adeline Pedroza Primary Care Provider [phone] Source Comments This disclosure is being made pursuant to the Care Everywhere program, applicable federal and state laws, and may not contain all informaitonavailable regarding this patient.[facility] ([facility]) Active Allergies and Adverse Reactions No [...] AM CDT Pulse 79 02/16/2015 1:37 PM DIGITAL MEDIA STRATEGIST Temperature 36.6 C (97.8 F) 02/06/2015 11:06 AM DIGITAL MEDIA STRATEGIST Respiratory Rate 16 02/06/2015 11:06 AM DIGITAL MEDIA STRATEGIST Height 1.88 m (6' 2") 01/29/2015 12:25 AM DIGITAL MEDIA STRATEGIST Weight 147.238 kg (324 lb 9.6 oz) 02/06/2015 11:06 AM DIGITAL MEDIA STRATEGIST Body Mass Index 41.66 02/06/2015 11:06 AM DIGITAL MEDIA STRATEGIST Oxygen Saturation 98% 02/16/2015 1:37 PM DIGITAL MEDIA STRATEGIST Plan of Care Health Maintenance Due Date [...]
[2016-06-09] MEDS ORDERED: VANCOMYCIN HCL 1 GM in DEXTROSE 5 % IN WATER 250 ML IV SCH ×2 (13:00)
[2016-06-09] MEDS: PIPERACILLIN SODIUM/TAZOBACTAM 3.375 GM in DEXTROSE 5 % IN WATER 100 ML IV SCH ×4 (13:25→20:09)
[2016-06-09] MEDS ORDERED: ACETAMINOPHEN 325 MG TABLET PO PRN (14:28)
[2016-06-09] MEDS ORDERED: SENNOSIDES/DOCUSATE SODIUM 1 TAB TABLET PO PRN (14:32)
[2016-06-09] MEDS ORDERED: BISACODYL 10 MG SUPP.RECT RC PRN (14:32)
[2016-06-09] MEDS ORDERED: ONDANSETRON HCL/PF 2 MG/ML VIAL IV PRN (14:32)
[2016-06-09] MEDS: HYDROcodone/ACETAMINOPHEN 1 EACH TABLET PO PRN (14:45)
[2016-06-09] MEDS: HEPARIN SODIUM,PORCINE 5,000 UNITS/ML VIAL SC SCH (17:03)
[2016-06-09] MEDS: INSULIN LISPRO 100 UNITS/ML VIAL SC SCH ×2 (17:04→17:05)
[2016-06-09] MEDS: VANCOMYCIN HCL 1.5 GM in DEXTROSE 5 % IN WATER 500 ML IV SCH ×2 (17:32)
[2016-06-09] MEDS: INSULIN GLARGINE,HUM.REC.ANLOG 100 UNITS/ML VIAL SC SCH (17:33)
--- NOTE | 2016-06-09 23:06 | HP ---
Chief Complaint - Chief Complaint Date of Service: 06/09/16 Time of Service: 19:45 Chief Complaint: Cellulitis, chronic diabetic ulcers History of Present Illness: 45 years old male adm to the hospital with reports of increased swelling, erythema to right leg x 3-4 days. Associated s/s chills, diaphoresis, fatigue and fever. Pt stated he has been seen at the wound clinic for chronic diabetic ulcers for treatment. However for the past 3-4 days he noticed an increased swelling and erythema to the right leg and new ulceration anterior of the right foot, so he came to the ER. PMH significant for diabetes neuropathy, diabetic ulcers, osteomyelitis, PVD and cellulitis. In ER lactic acid 2.7, procalcitonin 4.58, Bun/Cre 25/1.53. He was started on IV vanco and zosyn. Will adm for IV antb therapy, plan of care discussed with pt he verbalized understanding and agrees. - Patient's Past Medical History Patient History - Medical: Diabetes Type 2 Insulin Dependent, Obesity, Other - Diabetic neuropathy, Diabetic foot ulcers, MRSA, osteomyelitis Patient History - Cardiac/Respiratory: No pertinent hx Patient History - Cancer: No Hx of Cancer Patient History - Surgical Procedures: T & A, Orthopedic - amputations of toes bilaterally, shoulder surgery, I&D Patient History - Other: None - Family History Mother Family History - Medical: Diabetes Type 2, Hypothyroidism Family History - Cardiac/Respiratory: Hypertension Family History - Cancer: No pertinent family hx Father Family History - Medical: Kidney stone Family History - Cardiac/Respiratory: Atrial Fibrillation Family History - Cancer: Bladder - Social History Living Situations: home Abuse History: No History of abuse Psych History: No pertinent hx Smoking Status: Never smoker Have you smoked in the past 12 months: No Do you dip or chew tobacco: Yes Patient requests Smoking Cessation Consult: No Initiate information on Smoking Cessation: No Alcohol Use: none Drug Use: none - Immunizations Immunizations Up to Date: Yes Hx Pneumococcal Vaccination: Yes History of Influenza Vaccine: Yes Review Of Systems (GEN) - Review of Systems Generalized/Overall Review: Present: No Symptoms Reported EENTM: Present: No Symptoms Reported Respiratory: Present: No Symptoms Reported Cardiac: Present: No Symptoms Reported Abdominal: Present: Constipation Genitourinary: Present: No Symptoms Reported Musculoskeletal: Present: Other - Right leg swelling, left leg cast and brace Neurological: Present: No Symptoms Reported Skin: Present: Other - right leg cellulitis Endocrine: Present: No Symptoms Reported Immunizations: IMMUNIZATION HX Immunizations Up to Date Yes History of Influenza Vaccine Yes Hx Pneumococcal Vaccination Yes Allergies/Adverse Reactions: Allergies Allergy/AdvReac Type Severity Reaction Status Date / Time gabapentin AdvReac Mild HYPOTENSION, Verified 06/09/16 14:06 NAUSEA, DIZZINESS WITH INCREASED DOSE Home Medications: HOME MEDICATIONS Insulin Glargine,Hum.rec.anlog [Lantus] 48 units SC QPM 08/10/14 [Last Taken 04/11] Insulin Lispro [Humalog] 16 units SC TIDWM 07/26/15 [Last Taken 04/27/16] Silver/Foam Bandage [Aquacel Ag Foam 4"X4" Dressing] 1 each TP DAILY 04/27/16 [ Last Taken 04/26/16] Exam - Exam Vital Signs: Vital Signs - Last Taken Temp 37.1 C 06/09/16 20:29 Pulse 77 06/09/16 20:29 Resp 20 06/09/16 20:29 BP 100/42 06/09/16 20:29 Pulse Ox 97 06/09/16 20:29 Constitutional: Present: Alert, Oriented x3, Cooperative, Well developed, No distress, Morbidly obese ENT Exam: Present: moist mucous membranes Eye Exam: bilateral eye: PERRL Neck: Present: full range of motion Back Exam: Present: no CVA tenderness Respiratory: Present: chest non-tender, lungs clear, normal breath sounds, no respiratory distress Cardiovascular/Chest: Present: regular rate, rhythm, no chest tenderness, no gallop, no JVD, no murmur Peripheral Pulses: dorsalis-pedis (R): 2+, dorsalis-pedis (L): 0 - Left leg cast Abdomen: Present: Normal bowel sounds, soft, nontender, nondistended /Rectal: Present: Exam deferred Extremity: Present: calf tenderness - right, lower extremity edema - right let and foot, slow capillary refill - right pedal, left in cast Skin Exam: Present: other - right leg cellulitis, right foot new ulceration Neurologic: Present: oriented x 3 Appearance: Present: appropriate appearance Eye contact: Present: cooperative Thoughts: Present: normal thought pattern Diagnostic Studies: Abnormal Lab Results 06/09/16 Range/Units 13:35 Lactic Acid, Venous 2.5 H* (0.4-2.0) mmol/L Laboratory Results WBC 13.3 K/mm3 (4.0-10.5) H 06/09/16 10:52 RBC 4.36 M/mm3 (4.7-6.0) L 06/09/16 10:52 Hgb 11.6 gm/dL (13.5-18.0) L 06/09/16 10:52 Hct 36.6 % (42.0-52.0) L 06/09/16 10:52 MCV 83.9 fl (78-100) 06/09/16 10:52 MCH 26.6 pg (27-31) L 06/09/16 10:52 MCHC 31.7 g/dl (32-36) L 06/09/16 10:52 RDW 15.8 % (11.5-14.0) H 06/09/16 10:52 Plt Count 293 K/mm3 (150-450) 06/09/16 10:52 MPV 9.7 fl (6.0-9.5) H 06/09/16 10:52 Immature Gran % (Auto) 0.70 % (0.001-0.429) H 06/09/16 10:52 Immature Gran # (Auto) 0.10 K/mm3 (0.000-0.0310) H 06/09/16 10:52 Neutrophils % 84.9 % (42-75.0) H 06/09/16 10:52 Lymphocytes % 10.0 % (20-51) L 06/09/16 10:52 Monocytes % 4.2 % (0.0-9) 06/09/16 10:52 Eosinophils % 0.0 % (0.0-3.0) 06/09/16 10:52 Basophils % 0.2 % (0.0-1.0) 06/09/16 10:52 Nucleated RBC % 0.0 k/mm3 (0-1) 06/09/16 10:52 Neutrophils # 11.3 K/mm3 (1.3-6.0) H 06/09/16 10:52 Lymphocytes # 1.3 k/mm3 (1.5-3.5) L 06/09/16 10:52 Monocytes # 0.6 k/mm3 (0.0-1.0) 06/09/16 10:52 Eosinophils # 0.0 k/mm3 (0.0-0.7) 06/09/16 10:52 Absolute Basophils 0.0 k/mm3 (0.0-0.1) 06/09/16 10:52 Sodium 137 mmol/L (132-142) 06/09/16 10:52 Plasma Sodium 138 mmol/L (130-142) 06/09/16 10:52 Potassium 3.7 mmol/L (3.4-4.6) 06/09/16 10:52 Chloride 100 mmol/L (97-106) 06/09/16 10:52 Carbon Dioxide 27.1 mmol/L (24-32.6) 06/09/16 10:52 Anion Gap 13.6 mmol/L (6.8-13.8) 06/09/16 10:52 BUN 25 mg/dL (6-23) H D 06/09/16 10:52 Creatinine 1.53 mg/dL (0.4-1.4) H D 06/09/16 10:52 Est GFR (Non-Af Amer) 52 mL/min (60-130) L D 06/09/16 10:52 BUN/Creatinine Ratio 16.3 (9.0-21.6) 06/09/16 10:52 Random Glucose 173 mg/dL (70-110) H 06/09/16 10:52 Lactic Acid, Venous 1.0 mmol/L (0.4-2.0) 06/09/16 21:05 Calcium 8.8 mg/dL (7.9-10.9) 06/09/16 10:52 Calcium Adj for Albumin 9.2 mg/dL (8.4-10.2) 06/09/16 10:52 Total Bilirubin 0.8 mg/dL (0.0-1.1) 06/09/16 10:52 AST 14 U/L (0-48) 06/09/16 10:52 ALT 16 U/L (19-67) L 06/09/16 10:52 Alkaline Phosphatase 93 U/L (50-170) 06/09/16 10:52 Total Protein 8.8 gm/dL (6.2-8.2) H 06/09/16 10:52 Albumin 3.1 gm/dl (3.4-5.0) L 06/09/16 10:52 Procalcitonin 4.58 ng/mL (0.05-0.50) H 06/09/16 10:52 Assessment/Plan - Narrative Narrative: Cellulitis right leg On adm right leg had increased swellign and erythema, continue to monitor Continue IV antbx vancomycin and zosyn. Pharmacy to dose. Blood culture and wound culture pending Repeat CBC, CMP in am CT leg and foot for potential abscess and r/o osteo Sepsis vs SIRs On adm WBC 13.3, Temp 37.1, BP 100/42, HR 77 On adm Lactic acid 2.7--->5.5--->1.5 Procalcitonin level 4.58 IVF bolus given in ER continue with fluids Monitor vital signs q shift. Repeat labs in am KANWAL secondary to reports of decreased oral intake On adm Bun/ Cre 25/1.53 Continue with iVF resuscitation Monitor cmp in am Chronic diabetic ulcer Pt follow up with Dr. Roman at the wound clinic Left leg with cast and brace, wound center managed Right leg with new ulceration and cellulitis, plan a same as #1 Diabetes Continue with home medications Monitor Acc-check AC+HS and sliding scale insulin Consistent carb diet Morbid Obesity Exercise and diet modification Code status: Full VTE ppx: Heparin Sq Q12hrs Time 33 minutes - Assessment/Plan (1) Cellulitis of right leg Problem: Acute (2) Diabetic ulcer of both feet associated with type 2 diabetes mellitus Problem: Chronic (3) Acute renal failure Problem: Acute (4) Diabetes Problem: Chronic (5) Hyperlipidemia Problem: Chronic (6) Hypertension Problem: Chronic Qualifiers: Hypertension type: essential hypertension Qualified Code(s): I10 - Essential (primary) hypertension
[2016-06-10] MEDS: HEPARIN SODIUM,PORCINE 5,000 UNITS/ML VIAL SC SCH ×2 (04:10→16:04)
[2016-06-10] MEDS: PIPERACILLIN SODIUM/TAZOBACTAM 3.375 GM in DEXTROSE 5 % IN WATER 100 ML IV SCH ×6 (04:10→20:13)
[2016-06-10] MEDS: NORMAL SALINE 1,000 ML IV SCH ×7 (05:10→21:14)
[2016-06-10] MEDS: VANCOMYCIN HCL 1.5 GM in DEXTROSE 5 % IN WATER 500 ML IV SCH ×4 (05:11→16:03)
[2016-06-10] MEDS: HYDROcodone/ACETAMINOPHEN 1 EACH TABLET PO PRN ×3 (05:13→23:04)
[2016-06-10 05:50] LABS: Hematocrit 33.8 % (42.0-52.0); Hemoglobin 10.6 gm/dL (13.5-18.0); Mean Cell Volume 84.7 fl (78-100); Mean Corpuscular Hemoglobin 26.6 pg (27-31); Mean Corpuscular Hgb Conc 31.4 g/dl (32-36); Mean Platelet Volume 10.2 fl (6.0-9.5); Neutrophil # 10.2 K/mm3 (1.3-6.0); Neutrophil % 84.7 % (42-75.0); Platelet Count 253 K/mm3 (150-450); Red Blood Count 3.99 M/mm3 (4.7-6.0); Red Cell Distribution Width 15.9 % (11.5-14.0)
[2016-06-10] MEDS ORDERED: MORPHINE SULFATE 2 MG/ML DISP.SYRIN IV PRN (05:58)
[2016-06-10 06:05] LABS: BUN/Creatinine Ratio 21.7 (9.0-21.6); Calcium * 8.1 mg/dL (7.9-10.9); Carbon Dioxide 26.7 mmol/L (24-32.6); Estimated Creat Clear 77.8; Potassium 3.7 mmol/L (3.4-4.6)
--- NOTE | 2016-06-10 06:07 | PN ---
Subjective - Date and Time Seen Date: 06/10/16 Time: 05:59 Subjective Narrative: Patient seen today in bed with reports of increased pain to right leg. He denies numbness, pallor, tingling fever, chills, diaphoresis or palpitation. No drainage was observed or reported overnight. Objective - Review of Systems Generalized/Overall Review: Reports: No Symptoms Reported EENTM: Reports: No Symptoms Reported Respiratory: Reports: No Symptoms Reported Cardiac: Reports: No Symptoms Reported Abdominal: Reports: No Symptoms Reported Genitourinary Symptoms: Reports: No Symptoms Reported Musculoskeletal Complaints: Reports: Other - Throbbing pain to right leg Neurological: Reports: No Symptoms Reported Endocrine: Reports: No Symptoms Reported - Vitals Vitals: Last Vital Signs Temp 36.1 C L 06/09/16 23:50 Pulse 68 06/09/16 23:50 Resp 18 06/09/16 23:50 BP 102/61 06/09/16 23:50 Pulse Ox 97 06/09/16 23:50 - Abnormal Lab Findings Abnormal Lab Findings: Abnormal Lab Results 06/09/16 06/09/16 06/09/16 Range/Units 13:35 23:31 23:31 WBC (4.0-10.5) K/mm3 RBC (4.7-6.0) M/mm3 Hgb (13.5-18.0) gm/dL Hct (42.0-52.0) % MCH (27-31) pg MCHC (32-36) g/dl RDW (11.5-14.0) % MPV (6.0-9.5) fl Immature Gran % (Auto) (0.001-0.429) % Immature Gran # (Auto) (0.000-0.0310) K/mm3 Neutrophils % (42-75.0) % Lymphocytes % (20-51) % Neutrophils # (1.3-6.0) K/mm3 Lymphocytes # (1.5-3.5) k/mm3 ESR 76 H (0-10) mm/hr Lactic Acid, Venous 2.5 H* (0.4-2.0) mmol/L C-Reactive Prot, Quant 29.5 H (0.0-0.9) mg/dL 06/10/16 Range/Units 05:25 WBC 12.0 H (4.0-10.5) K/mm3 RBC 3.99 L (4.7-6.0) M/mm3 Hgb 10.6 L (13.5-18.0) gm/dL Hct 33.8 L (42.0-52.0) % MCH 26.6 L (27-31) pg MCHC 31.4 L (32-36) g/dl RDW 15.9 H (11.5-14.0) % MPV 10.2 H (6.0-9.5) fl Immature Gran % (Auto) 0.60 H (0.001-0.429) % Immature Gran # (Auto) 0.07 H (0.000-0.0310) K/mm3 Neutrophils % 84.7 H (42-75.0) % Lymphocytes % 9.7 L (20-51) % Neutrophils # 10.2 H (1.3-6.0) K/mm3 Lymphocytes # 1.2 L (1.5-3.5) k/mm3 ESR (0-10) mm/hr Lactic Acid, Venous (0.4-2.0) mmol/L C-Reactive Prot, Quant (0.0-0.9) mg/dL - Exam Constitutional: Present: Alert, Oriented x3, Cooperative, Well developed, No distress ENT Exam: Present: moist mucous membranes Breasts: Present: Exam deferred Respiratory: Present: chest non-tender, lungs clear, normal breath sounds, no respiratory distress Cardiovascular/Chest: Present: normal peripheral pulses, regular rate, rhythm, no chest tenderness Abdomen: Present: Normal bowel sounds, soft, nontender, nondistended, no rebound tenderness /Rectal: Present: Exam deferred Extremity: Present: inflammation - right leg and foot, lower extremity edema - right leg, leg pain - right leg, pedal edema, slow capillary refill - right pedal Skin Exam: Present: other - right leg erythema and swelling, new ulcersation to right foot Neurologic: Present: oriented x 3 Appearance: Present: appropriate appearance Eye contact: Present: cooperative Thoughts: Present: normal thought pattern Assessment/Plan Plan Narrative: Right leg Cellulitis with new ulceration On adm right leg had increased swelling and erythema, continue to monitor Continue IV antbx vancomycin and zosyn. Pharmacy to dose. Blood culture and wound culture pending Repeat CBC, CMP in am CT leg and foot for potential abscess and r/o osteo Sepsis vs SIRs On adm Temp 37.1, BP 100/42, HR 77 gradually improving this morning, continue to monitor. On adm Lactic acid 2.7--->5.5--->1.5- WNL On adm WBC 13.3--->12.0 gradually improving Procalcitonin level 4.58 IVF bolus given in ER continue with fluids NS @ 126ml/hr Monitor vital signs q shift. [facility]AL secondary to reports of decreased oral intake On adm Bun/ Cre 25/1.53 Continue with IVF resuscitation Likely to self resolved after IVF Monitor CMP Chronic diabetic ulcer Pt follow up with Dr. Roman at the wound clinic Left leg with cast and brace, wound center managed Right leg with new ulceration and cellulitis, plan a same as #1 Diabetes Continue with home medications Monitor Acc-check AC+HS and sliding scale insulin Consistent carb diet Morbid Obesity Exercise and diet modification Code status: Full VTE ppx: Heparin Sq Q12hrs Time 20 minutes - Problems/Diagnosis (1) Cellulitis of right leg Problem: Acute (2) Diabetic ulcer of both feet associated with type 2 diabetes mellitus Problem: Chronic (3) Acute renal failure Problem: Acute (4) Diabetes Problem: Chronic (5) Hyperlipidemia Problem: Chronic (6) Hypertension Problem: Chronic Qualifiers: Hypertension type: essential hypertension Qualified Code(s): I10 - Essential (primary) hypertension
[2016-06-10 06:20] LABS: CRP 29.1 mg/dL (0.0-0.9)
[2016-06-10] MEDS: INSULIN LISPRO 100 UNITS/ML VIAL SC SCH ×6 (06:41→17:36)
[2016-06-10] MEDS: MORPHINE SULFATE 4 MG/ML SYRG IV PRN ×2 (13:33→18:43)
[2016-06-10] MEDS: INSULIN GLARGINE,HUM.REC.ANLOG 100 UNITS/ML VIAL SC SCH (17:39)
[2016-06-11 04:30] LABS: Hematocrit 31.9 % (42.0-52.0); Hemoglobin 9.7 gm/dL (13.5-18.0); Mean Cell Volume 85.8 fl (78-100); Mean Corpuscular Hemoglobin 26.1 pg (27-31); Mean Corpuscular Hgb Conc 30.4 g/dl (32-36); Mean Platelet Volume 10.3 fl (6.0-9.5); Neutrophil # 5.9 K/mm3 (1.3-6.0); Neutrophil % 72.3 % (42-75.0); Platelet Count 248 K/mm3 (150-450); Red Blood Count 3.72 M/mm3 (4.7-6.0); Red Cell Distribution Width 15.5 % (11.5-14.0); White Blood Count 8.1 K/mm3 (4.0-10.5)
[2016-06-11] MEDS ORDERED: VANCOMYCIN HCL LEVEL XX ONE (04:30)
[2016-06-11 04:46] LABS: Anion Gap 10.6 mmol/L (6.8-13.8); BUN/Creatinine Ratio 21.4 (9.0-21.6); Calcium * 8.1 mg/dL (7.9-10.9); Carbon Dioxide 29.3 mmol/L (24-32.6); Estimated Creat Clear 95.8; Potassium 3.9 mmol/L (3.4-4.6); Vancomycin Trough 14.4 mcg/mL (10.0-20.0)
[2016-06-11] MEDS: PIPERACILLIN SODIUM/TAZOBACTAM 3.375 GM in DEXTROSE 5 % IN WATER 100 ML IV SCH ×6 (04:57→21:08)
[2016-06-11] MEDS: HEPARIN SODIUM,PORCINE 5,000 UNITS/ML VIAL SC SCH ×2 (04:58→17:32)
[2016-06-11] MEDS: NORMAL SALINE 1,000 ML IV SCH ×2 (05:03→18:32)
[2016-06-11] MEDS: VANCOMYCIN HCL 1.5 GM in DEXTROSE 5 % IN WATER 500 ML IV SCH ×4 (05:08→17:47)
--- NOTE | 2016-06-11 06:59 | PN ---
Subjective - Date and Time Seen Date: 06/11/16 Time: 06:55 Subjective Narrative: patient sen today in bed he denies fever chills and stated his leg no longer hurt, the erythema gradually improving Objective - Review of Systems Generalized/Overall Review: Reports: No Symptoms Reported EENTM: Reports: No Symptoms Reported Respiratory: Reports: No Symptoms Reported Cardiac: Reports: No Symptoms Reported Abdominal: Reports: No Symptoms Reported Genitourinary Symptoms: Reports: No Symptoms Reported Musculoskeletal Complaints: Reports: Other - right leg cellulitis Neurological: Reports: No Symptoms Reported Skin: Reports: Other - right leg cellulitis - Vitals Vitals: Last Vital Signs Temp 36.3 C L 06/10/16 23:22 Pulse 73 06/10/16 23:22 Resp 20 06/10/16 23:22 BP 151/81 06/10/16 23:22 Pulse Ox 97 06/10/16 23:22 - Abnormal Lab Findings Abnormal Lab Findings: Abnormal Lab Results 06/11/16 06/11/16 Range/Units 04:20 04:20 RBC 3.72 L (4.7-6.0) M/mm3 Hgb 9.7 L (13.5-18.0) gm/dL Hct 31.9 L (42.0-52.0) % MCH 26.1 L (27-31) pg MCHC 30.4 L (32-36) g/dl RDW 15.5 H (11.5-14.0) % MPV 10.3 H (6.0-9.5) fl Lymphocytes % 17.7 L (20-51) % Lymphocytes # 1.4 L (1.5-3.5) k/mm3 BUN 24 H (6-23) mg/dL - Exam Constitutional: Present: Alert, Oriented x3, Cooperative, Well developed, No distress, Morbidly obese ENT Exam: Present: normal ENT inspection Neck: Present: full range of motion Respiratory: Present: chest non-tender, lungs clear, normal breath sounds, no respiratory distress Cardiovascular/Chest: Present: normal peripheral pulses, regular rate, rhythm, no chest tenderness, no edema Abdomen: Present: Normal bowel sounds, soft, nontender, nondistended, no rebound tenderness /Rectal: Present: Exam deferred Extremity: Present: normal range of motion, normal inspection, no pedal edema, no calf tenderness, lower extremity edema - right leg Appearance: Present: appropriate appearance Eye contact: Present: cooperative, good eye contact Thoughts: Present: normal thought pattern Assessment/Plan Plan Narrative: Right leg Cellulitis with new ulceration- improving On adm right leg had increased swelling and erythema, continue to monitor Continue IV antbx vancomycin and zosyn. Pharmacy to dose. Blood culture and wound culture no growth Sepsis vs SIRs- improving On adm Lactic acid 2.7--->5.5--->1.5- WNL On adm WBC 13.3--->12.0 --->8.1 WNL Procalcitonin level 4.58 continue with fluids NS @ 126ml/hr Monitor vital signs q shift. Chronic diabetic ulcer Pt follow up with Dr. Roman at the wound clinic Left leg with cast and brace, wound center managed Right leg with new ulceration and cellulitis, plan a same as #1 Diabetes Continue with home medications Monitor Acc-check AC+HS and sliding scale insulin Consistent carb diet Morbid Obesity Exercise and diet modification KANWAL secondary to reports of decreased oral intake - resolved On adm Bun/ Cre 25/1.53 Continue with IVF resuscitation Likely to self resolved after IVF Monitor CMP Code status: Full VTE ppx: Heparin Sq Q12hrs Time 20 minutes - Problems/Diagnosis (1) Cellulitis of right leg Problem: Acute (2) Diabetic ulcer of both feet associated with type 2 diabetes mellitus Problem: Chronic (3) Acute renal failure Problem: Resolved (4) Diabetes Problem: Chronic (5) Hyperlipidemia Problem: Chronic (6) Hypertension Problem: Chronic Qualifiers: Hypertension type: essential hypertension Qualified Code(s): I10 - Essential (primary) hypertension
[2016-06-11] MEDS: INSULIN LISPRO 100 UNITS/ML VIAL SC SCH ×6 (07:20→17:40)
[2016-06-11] MEDS ORDERED: INSULIN GLARGINE,HUM.REC.ANLOG 100 UNITS/ML VIAL SC ONE (17:36)
[2016-06-11] MEDS: INSULIN GLARGINE,HUM.REC.ANLOG 100 UNITS/ML VIAL SC SCH (17:41)
[2016-06-11] MEDS ORDERED: INSULIN LISPRO 100 UNITS/ML VIAL SC ONE (18:00)
[2016-06-12] MEDS: VANCOMYCIN HCL 1.5 GM in DEXTROSE 5 % IN WATER 500 ML IV SCH ×2 (04:08)
[2016-06-12] MEDS: PIPERACILLIN SODIUM/TAZOBACTAM 3.375 GM in DEXTROSE 5 % IN WATER 100 ML IV SCH ×2 (04:08)
[2016-06-12] MEDS: HEPARIN SODIUM,PORCINE 5,000 UNITS/ML VIAL SC SCH ×2 (04:08→18:18)
[2016-06-12 05:57] LABS: Hematocrit 30.6 % (42.0-52.0); Hemoglobin 9.5 gm/dL (13.5-18.0); Mean Corpuscular Hemoglobin 26.4 pg (27-31); Mean Platelet Volume 10.2 fl (6.0-9.5); Neutrophil % 70.1 % (42-75.0); Platelet Count 302 K/mm3 (150-450); Red Cell Distribution Width 15.3 % (11.5-14.0); White Blood Count 7.2 K/mm3 (4.0-10.5)
[2016-06-12 06:07] LABS: Anion Gap 10.9 mmol/L (6.8-13.8); BUN/Creatinine Ratio 17.4 (9.0-21.6); Calcium * 8.5 mg/dL (7.9-10.9); Estimated Creat Clear 116.6; Potassium 3.9 mmol/L (3.4-4.6)
[2016-06-12] MEDS: INSULIN LISPRO 100 UNITS/ML VIAL SC SCH ×6 (07:27→20:07)
[2016-06-12] MEDS ORDERED: LEVOFLOXACIN 750 MG TABLET PO ONE (11:46)
--- NOTE | 2016-06-12 18:11 | PN ---
Subjective - Date and Time Seen Date: 06/12/16 Time: 12:30 Subjective Narrative: Jarod reports feeling better. Less pain in right leg and redness is less. Cultures returned today showing staph and strep species. He has no concerns. Denies n/v/f/c. Objective - Vitals Vitals: Last Vital Signs Temp 36.9 C 06/12/16 15:07 Pulse 68 06/12/16 15:07 Resp 20 06/12/16 15:07 BP 165/87 06/12/16 15:07 Pulse Ox 99 06/12/16 15:07 - Abnormal Lab Findings Abnormal Lab Findings: Abnormal Lab Results 06/12/16 06/12/16 Range/Units 05:00 05:00 RBC 3.60 L (4.7-6.0) M/mm3 Hgb 9.5 L (13.5-18.0) gm/dL Hct 30.6 L (42.0-52.0) % MCH 26.4 L (27-31) pg MCHC 31.0 L (32-36) g/dl RDW 15.3 H (11.5-14.0) % MPV 10.2 H (6.0-9.5) fl Immature Gran % (Auto) 0.70 H (0.001-0.429) % Immature Gran # (Auto) 0.05 H (0.000-0.0310) K/mm3 Lymphocytes % 18.5 L (20-51) % Lymphocytes # 1.3 L (1.5-3.5) k/mm3 Random Glucose 131 H D (70-110) mg/dL - Exam Constitutional: Present: Alert, Oriented x3, Cooperative ENT Exam: Present: hearing grossly normal Respiratory: Present: chest non-tender, lungs clear, normal breath sounds Cardiovascular/Chest: Present: regular rate, rhythm, no murmur Skin Exam: Present: other - Mild erythema of right lower extremity to erythema has moved away from demarcated line at the superior aspect, no active drainage. Assessment/Plan - Problems/Diagnosis (1) Cellulitis of right leg Problem: Acute Narrative: Improved, switched from IV antibiotics to oral levaquin today. Plan to discharge tomorrow if continues to improve. (2) Sepsis due to cellulitis Problem: Ruled-out Narrative: Blood cultures negative, sepsis ruled out. (3) Diabetic ulcer of both feet associated with type 2 diabetes mellitus Problem: Chronic Narrative: Monitoring glucose, which has been well controlled in the hospital, no changes at this time. 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
[2016-06-12] MEDS: INSULIN GLARGINE,HUM.REC.ANLOG 100 UNITS/ML VIAL SC SCH (20:11)
[2016-06-13] MEDS: HEPARIN SODIUM,PORCINE 5,000 UNITS/ML VIAL SC SCH (04:01)
[2016-06-13 06:41] VITALS: BP 125/60
[2016-06-13] MEDS: INSULIN LISPRO 100 UNITS/ML VIAL SC SCH ×4 (07:49→12:10)
--- NOTE | 2016-06-13 08:24 | DS ---
(1) Cellulitis of right leg Problem: Acute (2) Sepsis due to cellulitis Problem: Ruled-out (3) Diabetic ulcer of both feet associated with type 2 diabetes mellitus Problem: Chronic (4) Diabetes Problem: Chronic Qualifiers: Diabetes mellitus type: type 2 Diabetes mellitus complication detail: with foot ulcer Diabetes mellitus snf insulin use: with snf use Description of Stay: Jarod is a 45 yo male that was admitted for failed outpatient treatment of cellulitis. He had recently been treated with bactrim for cellulitis of lower extremities. He initially had concern for sepsis due to leukocytosis and tachycardia with cellulitis source of infection, as well as concern for severe sepsis with evidence of end organ damage due to elevated lactic acid. He was treated with IVF and IV vancomycin. Lactic acid improved to normal and blood culture ultimately negative. Cellulitis improved and was changed to levaquin. With improving cellulitis Jarod was discharged to home. Procedures Performed: none Discharge Disposition: Home self care Disposition: Home self-care Condition: Good Discharge Activity: Activity as tolerated Discharge Diet: Consistent carbs Referrals: David Starks DO [Primary Care Provider] - One Week Problem Oriented Discharge Instructions to Patient/Family: Diabetes and Foot Care Additional Patient Instructions (free text): Patient to be discharged and may go to his wound clinic appointment today with Dr. Roman. Complete Home Medications List: Complete Home Medication List: Insulin Glargine,Hum.rec.anlog [Lantus] 48 units SC QPM 08/10/14 Insulin Lispro [Humalog] 16 units SC TIDWM 07/26/15 HYDROcodone/ACETAMINOPHEN [[place] 5-325] 1 each PO Q4H PRN #60 tablet 06/22/16 Saccharomyces Boulardii [Florastor] 250 mg PO BID #60 capsule 06/22/16 Vancomycin HCl [Vancomycin] 1.5 gm IV Q12H #9 vial 06/22/16
[2016-06-13] MEDS ORDERED: LEVOFLOXACIN 750 MG TABLET PO SCH (11:00)
== END 2016-06-13 12:50 | disposition home or self-care (01) | DRG 603 ==
LOC: ER 09:46 → MS 12:35
PROVIDERS: ADMIT Internal Medicine; ATTEND Family Medicine
DX: L03.115 Cellulitis of right lower limb (principal); L97.919 Non-pressure chronic ulcer of unspecified part of right lower leg with unspecified severity; Z68.42 Body mass index [BMI] 45.0-49.9, adult; B95.8 Unspecified staphylococcus as the cause of diseases classified elsewhere; E11.622 Type 2 diabetes mellitus with other skin ulcer; E11.621 Type 2 diabetes mellitus with foot ulcer; L97.519 Non-pressure chronic ulcer of other part of right foot with unspecified severity; E11.40 Type 2 diabetes mellitus with diabetic neuropathy, unspecified; I10 Essential (primary) hypertension; E78.5 Hyperlipidemia, unspecified; E66.01 Morbid (severe) obesity due to excess calories; Z71.3 Dietary counseling and surveillance; Z79.4 Long term (current) use of insulin

== ENCOUNTER 2016-06-20 09:09 | Inpatient (IN) | payer OTHER ==
--- OUTSIDE RECORDS SUMMARY | 2016-06-20 09:13 | XMS REPORT | Continuity of Care Document ---
:1970 Author Organization [facility] ([facility]) Address [address] [place] [address] Phone [phone] Care Team Providers Name Role Phone Adeline Pedroza Primary Care Provider [phone] Source Comments This disclosure is being made pursuant to the Care Everywhere program, applicable federal and state laws, and may not contain all informaitonavailable regarding this patient.[facility] ([facility]) Active Allergies and Adverse Reactions No [...] AM CDT Pulse 79 02/16/2015 1:37 PM ENGAGEMENT SPECIALIST Temperature 36.6 C (97.8 F) 02/06/2015 11:06 AM ENGAGEMENT SPECIALIST Respiratory Rate 16 02/06/2015 11:06 AM ENGAGEMENT SPECIALIST Height 1.88 m (6' 2") 01/29/2015 12:25 AM ENGAGEMENT SPECIALIST Weight 147.238 kg (324 lb 9.6 oz) 02/06/2015 11:06 AM ENGAGEMENT SPECIALIST Body Mass Index 41.66 02/06/2015 11:06 AM ENGAGEMENT SPECIALIST Oxygen Saturation 98% 02/16/2015 1:37 PM ENGAGEMENT SPECIALIST Plan of Care Health Maintenance Due Date [...]
[2016-06-20] MEDS ORDERED: HYDROcodone/ACETAMINOPHEN 1 EACH TABLET PO PRN (09:36)
[2016-06-20] MEDS: INSULIN LISPRO 100 UNITS/ML VIAL SC SCH ×2 (12:14→17:00)
[2016-06-20] MEDS: VANCOMYCIN HCL 1.5 GM in DEXTROSE 5 % IN WATER 500 ML IV SCH ×2 (13:58)
[2016-06-20 16:54] LABS: Hematocrit 29.9 % (42.0-52.0); Hemoglobin 9.2 gm/dL (13.5-18.0); Mean Cell Volume 84.5 fl (78-100); Mean Corpuscular Hgb Conc 30.8 g/dl (32-36); Mean Platelet Volume 8.9 fl (6.0-9.5); Neutrophil # 3.9 K/mm3 (1.3-6.0); Neutrophil % 60.8 % (42-75.0); Platelet Count 396 K/mm3 (150-450); Red Blood Count 3.54 M/mm3 (4.7-6.0); Red Cell Distribution Width 15.3 % (11.5-14.0); White Blood Count 6.4 K/mm3 (4.0-10.5)
[2016-06-20] MEDS: INSULIN GLARGINE,HUM.REC.ANLOG 100 UNITS/ML VIAL SC SCH (17:00)
[2016-06-20 22:43] LABS: Anion Gap 9.9 mmol/L (6.8-13.8); BUN/Creatinine Ratio 19.8 (9.0-21.6); Ca. Corrected For Albumin 9.4 mg/dL (8.4-10.2)
[2016-06-20 22:50] LABS: Albumin * 2.3 gm/dl (3.4-5.0); Bilirubin, Total 0.2 mg/dL (0.0-1.1); Calcium * 8.4 mg/dL (7.9-10.9); Carbon Dioxide 29.7 mmol/L (24-32.6); Potassium 4.6 mmol/L (3.4-4.6); Total Protein 8.1 gm/dL (6.2-8.2)
[2016-06-20] MEDS: HYDROcodone/ACETAMINOPHEN 1 EACH TABLET PO PRN (22:56)
--- NOTE | 2016-06-20 23:51 | HP ---
Chief Complaint - Chief Complaint Date of Service: 06/20/16 Time of Service: 10:00 Chief Complaint: Leg redness/drainage History of Present Illness: Jarod is a 45 yo male with recurrent episodes of lower extremity cellulitis and diabetic foot ulcers. He was seen in wound clinic today for bilateral diabetic foot ulcers. On examination he was noted to have worsening redness and drainage of right leg from knee to ankle, this was the same leg that he was currently on Levaquin for. He was recently seen in the hospitals with cellulitis and treated with vancomycin. He improved and was discharged after three days on PO levaquin. He has been taking the levaquin every day but over the past couple days redness to right leg has worsened and he has had purulent dranage from mid carr. He is still taking the levaquin. Denies fever, chills, nausea, or vomiting. He denies any new injuries. - Patient's Past Medical History Patient History - Medical: Diabetes Type 2 Insulin Dependent, Obesity, Other - Recurrent diabetic foot ulcers with cellulitis, osteomyelitis right 2nd toe Patient History - Cardiac/Respiratory: No pertinent hx Patient History - Cancer: No Hx of Cancer Patient History - Surgical Procedures: T & A, Orthopedic - Amputation right 2nd toe Patient History - Other: None - Family History Mother Family History - Medical: Diabetes Type 2, Hypothyroidism Family History - Cardiac/Respiratory: Hypertension Family History - Cancer: No pertinent family hx Father Family History - Medical: Kidney stone Family History - Cardiac/Respiratory: Atrial Fibrillation Family History - Cancer: Bladder - Social History Living Situations: home Abuse History: No History of abuse Psych History: No pertinent hx Smoking Status: Never smoker Have you smoked in the past 12 months: No Alcohol Use: none Drug Use: none - Immunizations Immunizations Up to Date: Yes Hx Pneumococcal Vaccination: Yes History of Influenza Vaccine: Yes Review Of Systems (GEN) - Review of Systems Generalized/Overall Review: Present: No Symptoms Reported EENTM: Present: No Symptoms Reported Respiratory: Present: No Symptoms Reported Cardiac: Present: No Symptoms Reported Abdominal: Present: No Symptoms Reported Genitourinary: Present: No Symptoms Reported Musculoskeletal: Present: No Symptoms Reported Neurological: Present: No Symptoms Reported Skin: Present: Change in Color Endocrine: Present: No Symptoms Reported Misc: All systems neg except as marked Immunizations: IMMUNIZATION HX Immunizations Up to Date Yes History of Influenza Vaccine Yes Hx Pneumococcal Vaccination Yes Allergies/Adverse Reactions: Allergies Allergy/AdvReac Type Severity Reaction Status Date / Time gabapentin AdvReac Mild HYPOTENSION, Verified 06/09/16 14:06 NAUSEA, DIZZINESS WITH INCREASED DOSE Home Medications: HOME MEDICATIONS Insulin Glargine,Hum.rec.anlog [Lantus] 48 units SC QPM 08/10/14 [Last Taken 04/11] Insulin Lispro [Humalog] 16 units SC TIDWM 07/26/15 [Last Taken 04/27/16] HYDROcodone/ACETAMINOPHEN [[place] 5-325] 1 each PO Q4H PRN #30 tablet 06/13/16 [ Last Taken Unknown] Levofloxacin [Levaquin] 750 mg PO DAILY@1100 #14 tablet 06/13/16 [Last Taken Unknown] Exam - Exam Vital Signs: Vital Signs - Last Taken Temp 37.3 C 06/20/16 14:56 Pulse 75 06/20/16 14:56 Resp 16 06/20/16 14:56 BP 143/78 06/20/16 14:56 Pulse Ox 96 06/20/16 14:56 Constitutional: Present: Alert, Oriented x3, Cooperative ENT Exam: Present: hearing grossly normal Eye Exam: bilateral eye: normal inspection Respiratory: Present: lungs clear, normal breath sounds Cardiovascular/Chest: Present: regular rate, rhythm, no murmur Abdomen: Present: Normal bowel sounds, soft, nontender, nondistended Skin Exam: Present: other - Erythema from right knee to right ankle, mid carr with active purulent drainage, ulcers to bilateral feet/plantar surface Neurologic: Present: alert, normal mood/affect, oriented x 3 Diagnostic Studies: Abnormal Lab Results 06/20/16 06/20/16 Range/Units 16:45 16:45 RBC 3.54 L (4.7-6.0) M/mm3 Hgb 9.2 L (13.5-18.0) gm/dL Hct 29.9 L (42.0-52.0) % MCH 26.0 L (27-31) pg MCHC 30.8 L (32-36) g/dl RDW 15.3 H (11.5-14.0) % Immature Gran % (Auto) 0.50 H (0.001-0.429) % Random Glucose 145 H (70-110) mg/dL Albumin 2.3 L (3.4-5.0) gm/dl Laboratory Results WBC 6.4 K/mm3 (4.0-10.5) 06/20/16 16:45 RBC 3.54 M/mm3 (4.7-6.0) L 06/20/16 16:45 Hgb 9.2 gm/dL (13.5-18.0) L 06/20/16 16:45 Hct 29.9 % (42.0-52.0) L 06/20/16 16:45 MCV 84.5 fl (78-100) 06/20/16 16:45 MCH 26.0 pg (27-31) L 06/20/16 16:45 MCHC 30.8 g/dl (32-36) L 06/20/16 16:45 RDW 15.3 % (11.5-14.0) H 06/20/16 16:45 Plt Count 396 K/mm3 (150-450) 06/20/16 16:45 MPV 8.9 fl (6.0-9.5) 06/20/16 16:45 Immature Gran % (Auto) 0.50 % (0.001-0.429) H 06/20/16 16:45 Immature Gran # (Auto) 0.03 K/mm3 (0.000-0.0310) 06/20/16 16:45 Neutrophils % 60.8 % (42-75.0) 06/20/16 16:45 Lymphocytes % 28.4 % (20-51) 06/20/16 16:45 Monocytes % 8.4 % (0.0-9) 06/20/16 16:45 Eosinophils % 1.6 % (0.0-3.0) 06/20/16 16:45 Basophils % 0.3 % (0.0-1.0) 06/20/16 16:45 Nucleated RBC % 0.0 k/mm3 (0-1) 06/20/16 16:45 Neutrophils # 3.9 K/mm3 (1.3-6.0) 06/20/16 16:45 Lymphocytes # 1.8 k/mm3 (1.5-3.5) 06/20/16 16:45 Monocytes # 0.5 k/mm3 (0.0-1.0) 06/20/16 16:45 Eosinophils # 0.1 k/mm3 (0.0-0.7) 06/20/16 16:45 Absolute Basophils 0.0 k/mm3 (0.0-0.1) 06/20/16 16:45 Sodium 137 mmol/L (132-142) 06/20/16 16:45 Plasma Sodium 138 mmol/L (130-142) 06/20/16 16:45 Potassium 4.6 mmol/L (3.4-4.6) 06/20/16 16:45 Chloride 102 mmol/L (97-106) 06/20/16 16:45 Carbon Dioxide 29.7 mmol/L (24-32.6) 06/20/16 16:45 Anion Gap 9.9 mmol/L (6.8-13.8) 06/20/16 16:45 BUN 18 mg/dL (6-23) 06/20/16 16:45 Creatinine 0.91 mg/dL (0.4-1.4) 06/20/16 16:45 Est GFR (Non-Af Amer) 95 mL/min (60-130) 06/20/16 16:45 BUN/Creatinine Ratio 19.8 (9.0-21.6) 06/20/16 16:45 Random Glucose 145 mg/dL (70-110) H 06/20/16 16:45 Calcium 8.4 mg/dL (7.9-10.9) 06/20/16 16:45 Calcium Adj for Albumin 9.4 mg/dL (8.4-10.2) 06/20/16 16:45 Total Bilirubin 0.2 mg/dL (0.0-1.1) 06/20/16 16:45 AST 15 U/L (0-48) 06/20/16 16:45 ALT 19 U/L (19-67) 06/20/16 16:45 Alkaline Phosphatase 89 U/L (50-170) 06/20/16 16:45 Total Protein 8.1 gm/dL (6.2-8.2) 06/20/16 16:45 Albumin 2.3 gm/dl (3.4-5.0) L 06/20/16 16:45 Assessment/Plan - Assessment/Plan (1) Cellulitis of right leg Assessment: Jarod is a 45 yo male with failed outpatient treatment of cellulitis. He was recently admitted with right leg cellulitis. He improved after three days of vancomycin and was switched to oral levaquin. Since being discharged on the levaquin the right leg has worsened with bright red skin, increased heat, and purulent drainage from mid carr. He is currently still taking the levaquin and has obviously failed outpatient treatment. Will admit to acute inpatient status and will place on IV vancomycin as this appeared to work well previously. Plan on 7 days of IV vancomycin. Will culture leg drainage. Problem: Acute (2) Diabetic ulcer of both feet associated with type 2 diabetes mellitus Assessment: Blood sugars have been better controlled as of late, will continue his home insulin regimen and monitor. Problem: Chronic
[2016-06-21] MEDS: VANCOMYCIN HCL 1.5 GM in DEXTROSE 5 % IN WATER 500 ML IV SCH ×4 (02:53→14:34)
[2016-06-21] MEDS: HYDROcodone/ACETAMINOPHEN 1 EACH TABLET PO PRN ×2 (07:40→14:23)
[2016-06-21] MEDS: INSULIN LISPRO 100 UNITS/ML VIAL SC SCH ×3 (07:55→17:34)
[2016-06-21] MEDS: INSULIN GLARGINE,HUM.REC.ANLOG 100 UNITS/ML VIAL SC SCH (17:40)
--- NOTE | 2016-06-21 23:55 | PN ---
Subjective - Date and Time Seen Date: 06/21/16 Time: 12:15 Subjective Narrative: Reports redness and swelling better. No fever, chills. No nausea or vomiting. Objective - Vitals Vitals: Last Vital Signs Temp 36.5 C 06/21/16 23:22 Pulse 73 06/21/16 23:22 Resp 20 06/21/16 23:22 BP 127/69 06/21/16 23:22 Pulse Ox 95 06/21/16 23:22 - Exam Constitutional: Present: Alert, Oriented x3, Cooperative ENT Exam: Present: hearing grossly normal Respiratory: Present: lungs clear, normal breath sounds Cardiovascular/Chest: Present: regular rate, rhythm, no murmur Abdomen: Present: Normal bowel sounds, soft, nontender, nondistended Assessment/Plan - Problems/Diagnosis (1) Cellulitis of right leg Problem: Acute Narrative: Improved. Will change to oral and monitor, if continues to improve will plan to discharge to home tomorrow on orals. (2) Diabetic ulcer of both feet associated with type 2 diabetes mellitus Problem: Chronic
[2016-06-22] MEDS: VANCOMYCIN HCL 1.5 GM in DEXTROSE 5 % IN WATER 500 ML IV SCH ×4 (02:14→14:33)
[2016-06-22] MEDS: HYDROcodone/ACETAMINOPHEN 1 EACH TABLET PO PRN ×2 (02:21→14:44)
[2016-06-22] MEDS: INSULIN LISPRO 100 UNITS/ML VIAL SC SCH ×3 (07:47→17:29)
[2016-06-22 11:36] VITALS: BP 148/76
--- NOTE | 2016-06-22 16:27 | DS ---
(1) Cellulitis of right leg Diagnosis(s): Jarod is a 45 yo male who was admitted with cellulitis of right leg with recent outpatient antibiotic use on bactrim. He presented to clinic with worsening cellulitis and he was still taking bactrim. He was admitted for failed outpatient treatment of cellulitis. He was started on vancomycin and improved. As he has improved with vancomycin and failed oral treatment will plan to complete course with vancomycin. He will be discharged and will come in through the [facility] for IV vancomycin for a full 7 day course. He will follow up in my clinic and wound clinic. Problem: Acute (2) Diabetic ulcer of both feet associated with type 2 diabetes mellitus Problem: Chronic Procedures Performed: none Discharge Disposition: Home self care Disposition: Home self-care Condition: Fair Discharge Activity: Activity as tolerated Discharge Diet: Consistent carbs Referrals: David Starks DO [Primary Care Provider] - One Week Nicole Roman DPM [Staff Physician] - 06/27/16 1:00 pm (Follow up with Dr. Roman in Wound Clinic on 06/27/16 at 1 PM (Already scheduled)) Problem Oriented Discharge Instructions to Patient/Family: Cellulitis, Adult, [id number] Additional Patient Instructions (free text): Vancomycin in the [facility] twice a day- 5 AM and 5 PM. Next dose to be given at 5 AM on 06/23. Last dose will be 06/27/16 at 0500. [facility] (Dr. Roman) on 06/27/16 at 1 PM. Follow up with Dr. Starks on June at 2pm Prescriptions (Any new or edited meds): HYDROcodone/ACETAMINOPHEN [[place] 5-325] 1 each PO Q4H PRN #60 tablet PRN Reason: Moderate Pain Saccharomyces Boulardii [Florastor] 250 mg PO BID #60 capsule Vancomycin HCl [Vancomycin] 1.5 gm IV Q12H #9 vial Complete Home Medications List: Complete Home Medication List: Insulin Glargine,Hum.rec.anlog [Lantus] 48 units SC QPM 08/10/14 Insulin Lispro [Humalog] 16 units SC TIDWM 07/26/15 HYDROcodone/ACETAMINOPHEN [[place] 5-325] 1 each PO Q4H PRN #60 tablet 06/22/16 Saccharomyces Boulardii [Florastor] 250 mg PO BID #60 capsule 06/22/16 Vancomycin HCl [Vancomycin] 1.5 gm IV Q12H #9 vial 06/22/16
[2016-06-22] MEDS: INSULIN GLARGINE,HUM.REC.ANLOG 100 UNITS/ML VIAL SC SCH (17:28)
== END 2016-06-22 20:00 | disposition home or self-care (01) | DRG 603 ==
LOC: MS 09:09
PROVIDERS: ADMIT Family Medicine; ATTEND Family Medicine
DX: L03.115 Cellulitis of right lower limb (principal); E11.621 Type 2 diabetes mellitus with foot ulcer; L97.529 Non-pressure chronic ulcer of other part of left foot with unspecified severity; L97.519 Non-pressure chronic ulcer of other part of right foot with unspecified severity; Z79.4 Long term (current) use of insulin

== ENCOUNTER 2016-08-14 06:34 | Day surgery (SDC) | payer OTHER ==
[~2016-08-14 06:34] MED LIST: RINGERS SOLUTION,LACTATED 1,000 ML IV PRN; ceFAZolin SODIUM 2 GM in DEXTROSE 5 % IN WATER 50 ML IV PRN
--- OUTSIDE RECORDS SUMMARY | 2016-08-14 06:38 | XMS REPORT | Continuity of Care Document ---
:1970 Author Organization [facility] ([facility]) Address [address] [place] [address] Phone [phone] Care Team Providers Name Role Phone Adeline Pedroza Primary Care Provider [phone] Source Comments This disclosure is being made pursuant to the Care Everywhere program, applicable federal and state laws, and may not contain all informaitonavailable regarding this patient.[facility] ([facility]) Active Allergies and Adverse Reactions No [...] AM CDT Pulse 79 02/16/2015 1:37 PM DOORSHAKER Temperature 36.6 C (97.8 F) 02/06/2015 11:06 AM DOORSHAKER Respiratory Rate 16 02/06/2015 11:06 AM DOORSHAKER Height 1.88 m (6' 2") 01/29/2015 12:25 AM DOORSHAKER Weight 147.238 kg (324 lb 9.6 oz) 02/06/2015 11:06 AM DOORSHAKER Body Mass Index 41.66 02/06/2015 11:06 AM DOORSHAKER Oxygen Saturation 98% 02/16/2015 1:37 PM DOORSHAKER Plan of Care Health Maintenance Due Date [...]
[2016-08-14] MEDS ORDERED: RINGERS SOLUTION,LACTATED 1,000 ML IV ONE ×2 (07:20→10:15)
[2016-08-14] MEDS ORDERED: ceFAZolin SODIUM 1 GM VIAL IV ONE (08:30)
[2016-08-14] MEDS ORDERED: LIDOCAINE HCL 50 ML VIAL IJ ONE (08:30)
[2016-08-14] MEDS ORDERED: BUPIVACAINE HCL 50 ML VIAL IJ ONE (08:30)
[2016-08-14 12:53] VITALS: BP 140/72
== END 2016-08-14 06:35 | disposition home or self-care (01) ==
LOC: AMB 06:34
PROVIDERS: ATTEND Student in an Organized Health Care Education/Training Program
PROC: 0Y6Q0Z0 Detachment at Left 1st Toe, Complete, Open Approach (ICD-10-PCS; principal; 2016-08-14 08:25)
PROC: 0QTP0ZZ Resection of Left Metatarsal, Open Approach (ICD-10-PCS; 2016-08-14 08:25)
PROC: 0QBP0ZZ Excision of Left Metatarsal, Open Approach (ICD-10-PCS; 2016-08-14 08:25)
DX: E11.621 Type 2 diabetes mellitus with foot ulcer (principal); L97.524 Non-pressure chronic ulcer of other part of left foot with necrosis of bone; M86.8X7 Other osteomyelitis, ankle and foot; Z87.891 Personal history of nicotine dependence; Z68.42 Body mass index [BMI] 45.0-49.9, adult

== ENCOUNTER 2018-03-28 11:03 | Inpatient (IN) ==
[2018-03-28 15:57] LABS: Hematocrit 35.3 % (42.0-52.0); Hemoglobin 11.4 gm/dL (13.5-18.0); Mean Cell Volume 85.7 fl (78-100); Mean Corpuscular Hemoglobin 27.7 pg (27-31); Mean Corpuscular Hgb Conc 32.3 g/dl (32-36); Mean Platelet Volume 9.8 fl (8-11.3); Neutrophil # 5.2 K/mm3 (1.3-6.0); Neutrophil % 61.2 % (42-75.0); Platelet Count 315 K/mm3 (150-450); Red Blood Count 4.12 M/mm3 (4.7-6.0); Red Cell Distribution Width 12.8 % (11.5-14.0); White Blood Count 8.4 K/mm3 (4.0-10.5)
[2018-03-28 16:11] LABS: Albumin * 2.3 gm/dl (3.4-5.0); BUN/Creatinine Ratio 18.2 (9.0-21.6); Bilirubin, Total 0.3 mg/dL (0.0-1.1); CRP 9.4 mg/dL (0.0-0.9); Ca. Corrected For Albumin 9.5 mg/dL (8.4-10.2); Calcium * 8.5 mg/dL (7.9-10.9); Carbon Dioxide 29.3 mmol/L (24-32.6); Potassium 4.3 mmol/L (3.4-4.6); Total Protein 7.5 gm/dL (6.2-8.2)
--- NOTE | 2018-03-28 16:36 | CONS ---
[facility] - General Date of Service: 03/28/18 Narrative: Mr. Saldana is a 47-year-old gentleman with diabetes who is been followed for a prolonged amount of time by Nicole Roman with podiatry. He recently developed increased swelling and drainage from his small toe and went to an outside facility who admitted him for observation and IV antibiotics. He was not getting better and had significant swelling and drainage and thus they wanted him to be evaluated at our facility for possible surgical intervention. He states it has been getting worse. He has a history of multiple toe irritations on the contralateral side. He has been treated with the wound center for a prolonged amount of time for his right foot. He has significant vascular changes. Source: patient Exam Limitations: no limitations - History of Present Illness Timing/Duration: 24 hours Severity: mild Modifying Factors - (Worsens): Reports: other - Time Modifying Factors - (Improves): Reports: medication Associated Symptoms: denies symptoms Allergies/Adverse Reactions: Allergies gabapentin Adverse Reaction (Mild, Verified 08/14/16 07:05) HYPOTENSION, NAUSEA, DIZZINESS WITH INCREASED DOSE Home Medications: Home Medications Medication Instructions Recorded Last Taken Insulin Glargine,Hum.rec.anlog 40 units SC QPM 08/10/14 04/26/16 [Lantus] Insulin Lispro [Humalog] 15 units SC TIDWM 07/26/15 04/27/16 Aspirin [Aspirin Enteric Coated] 81 mg PO DAILY 08/11/16 08/08/16 Procedures Detachment at Left 2nd Toe, Complete, Open Approach (08/26/15) Detachment at Left 3rd Toe, Complete, Open Approach (08/26/15) Detachment at Right 2nd Toe, Complete, Open Approach (04/13/15) Division of joint capsule, ligament, or cartilage, foot and toe (10/25/14) Excision of Left Foot Subcutaneous Tissue and Fascia, Open Approach (03/28/16) Excision of Left Metatarsal, Open Approach (07/29/15) Other arthrotomy, foot and toe (10/25/14) Resection of Left Metatarsal, Open Approach (04/13/15) Review of Systems - Review of Systems Narrative: Negative except for above Physical Examination - Exam Narrative: Right lower extremity: Significant edema with chronic skin changes consistent with vascular compromise. Reddened skin about the foot and ankle. There is a large healing chronic ulcer under the plantar aspect of the first metatarsal head which has a dressing on this but does not show any gross signs of infection. The small toe is very large, discolored, and notable drainage. He has no sensation to his small toe. He is unable to move his small toe. He is a well-healed surgical incision over his second toe. There is not a grossly palpable pulse Vital Signs: Vital Signs - Last Taken Temp 36.5 C 03/28/18 15:23 Pulse 73 03/28/18 15:23 Resp 22 H 03/28/18 15:23 BP 164/73 H 03/28/18 15:23 Pulse Ox 98 03/28/18 15:23 O2 Oxygen Delivery Method Room Air Constitutional: Present: Alert, Oriented x3 - Results and Findings: Narrative: 3 views of the right foot: Status post second toe and second metatarsal head resection, significant swelling and osseous changes to the distal aspect of the small toe consistent with likely osteomyelitis Lab/Microbiology results last 24 hrs: Abnormal/Pending Laboratory Last 24 HRS 03/28/18 03/28/18 15:45 13:47 RBC 4.12 L Hgb 11.4 L Hct 35.3 L Immature Gran % (Auto) 0.50 H Immature Gran # (Auto) 0.04 H Eosinophils % 5.4 H Random Glucose 188 H ALT 13 L C-Reactive Prot, Quant 9.4 H Albumin 2.3 L - Assessments/Findings (1) Cellulitis of fifth toe, right Diagnosis(s): Based on his significant drainage, radiographic findings, and limited ability to heal this as well as the lack of improvement on IV antibiotics, my recommendation is for amputation of the small toe. This was discussed with the patient. The risks and recovery were discussed. He would like to proceed. He will need to be n.p.o. after midnight. He can continue with his IV antibiotics. We did discuss his significant risk of wound healing complications and possible need for additional progression of amputation. Problem: Acute (2) Osteomyelitis Problem: Suspected Qualifiers: Osteomyelitis type: chronic, with draining sinus Osteomyelitis location: foot Laterality: right Qualified Code(s): M86.471 - Chronic osteomyelitis with draining sinus, right ankle and foot
--- NOTE | 2018-03-28 21:13 | HP ---
Chief Complaint - Chief Complaint Date of Service: 03/28/18 Time of Service: 21:13 Chief Complaint: Right 5th toe infection History of Present Illness: Jarod is a 47 yo male with uncontrolled, insulin dependent diabetes mellitus type II. He has diabetic neuropathy with history diabetic foot ulcers. He routinely follows with Dr. Roman in the wound clinic about every 2-3 weeks. 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 He believes the boots irritate his feet. He has decreased sensation of bilateral feet. He first began to notice right carr pain on new years 3 days ago. He went to the closest hospital and was admitted and [facility]. He reports the pain and redness at the right carr improved but there was concern over right 5th digit that was becoming dark in color. [place] consulted Dr. Diggs for further management who evaluated records and felt the best treatment option would be amputation of digit. He was transferred from [facility] to [facility] today. Orthopedics is planning on surgery tomorrow. Jarod reports no other cent problems. He has not had problems with surgery. He denies chest pain, shortness of breath, fever, or chills. Medical History (Last Reviewed 03/28/18 @ 15:47 by Rona Nichols RN) HX CARPAL TUNNEL BILATERAL WRISTS lt foot great to, 2nd & 3rd toe amputati rt foot 2 nd digit amputation rt shoulder rotar cuff repair Surgical History: Surgical History (Last Updated 03/28/18 @ 15:42 by Rona Nichols RN) Hx of carpal tunnel repair Family History: Family History (Last Updated 03/28/18 @ 16:02 by Rona Nichols RN) Other Family history of cancer in father Family history of thyroid disease in mother Father has graduate school education History of non-insulin dependent diabetes mellitus in mother Patient's father is still living mother [employer] mother hard of hearing Social History: Patient Lives/Resources Home Utilized 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 Smoking Status Former smoker Have you smoked in the past 12 No months Do you dip or chew tobacco No Abuse History No History of abuse Psych History No pertinent hx No Social History Section defined Review Of Systems (GEN) - Review of Systems Generalized/Overall Review: Absent: Weakness, Chills, Fever EENTM: Present: No Symptoms Reported Respiratory: Absent: Cough, Shortness of Breath Cardiac: Absent: Chest Pain, Syncope Abdominal: Absent: Nausea, Vomiting, Abdominal Pain Neurological: Present: Numbness. Absent: Headache, Tremors Skin: Present: Change in Color Immunizations: IMMUNIZATION HX Immunizations Up to Date Yes History of Influenza Vaccine Yes Hx Pneumococcal Vaccination Yes Allergies/Adverse Reactions: Allergies Allergy/AdvReac Type Severity Reaction Status Date / Time gabapentin AdvReac Mild HYPOTENSION, Verified 08/14/16 07:05 NAUSEA, DIZZINESS WITH INCREASED DOSE Home Medications: HOME MEDICATIONS Insulin Glargine,Hum.rec.anlog [Lantus] 40 units SC QPM 08/10/14 [Last Taken 04/26/16] Insulin Lispro [Humalog] 15 units SC TIDWM 07/26/15 [Last Taken 04/27/16] Aspirin [Aspirin Enteric Coated] 81 mg PO DAILY 08/11/16 [Last Taken 08/08/16] Exam - Exam Vital Signs: Vital Signs - Last Taken Temp 36.5 C 03/28/18 15:23 Pulse 73 03/28/18 15:23 Resp 22 H 03/28/18 15:23 BP 164/73 H 03/28/18 15:23 Pulse Ox 98 03/28/18 15:23 Constitutional: Present: Alert, Oriented x3, Cooperative, No distress ENT Exam: Present: hearing grossly normal Respiratory: Present: lungs clear, normal breath sounds Cardiovascular/Chest: Present: regular rate, rhythm, no murmur Peripheral Pulses: radial (R): 2+, radial (L): 2+ Abdomen: Present: Normal bowel sounds, soft, nontender, nondistended Extremity: Present: other - Right foot digits covered in mepilex. No erythema pr esent. No erythema present of right carr. Diagnostic Studies: Abnormal Lab Results 03/28/18 03/28/18 Range/Units 13:47 15:45 RBC 4.12 L (4.7-6.0) M/mm3 Hgb 11.4 L (13.5-18.0) gm/dL Hct 35.3 L (42.0-52.0) % Immature Gran % (Auto) 0.50 H (0.001-0.429) % Immature Gran # (Auto) 0.04 H (0.000-0.0310) K/mm3 Eosinophils % 5.4 H (0.0-3.0) % Random Glucose 188 H (70-110) mg/dL ALT 13 L (19-67) U/L C-Reactive Prot, Quant 9.4 H (0.0-0.9) mg/dL Albumin 2.3 L (3.4-5.0) gm/dl Laboratory Results WBC 8.4 K/mm3 (4.0-10.5) 03/28/18 13:47 RBC 4.12 M/mm3 (4.7-6.0) L 03/28/18 13:47 Hgb 11.4 gm/dL (13.5-18.0) L 03/28/18 13:47 Hct 35.3 % (42.0-52.0) L 03/28/18 13:47 MCV 85.7 fl (78-100) 03/28/18 13:47 MCH 27.7 pg (27-31) 03/28/18 13:47 MCHC 32.3 g/dl (32-36) 03/28/18 13:47 RDW 12.8 % (11.5-14.0) 03/28/18 13:47 Plt Count 315 K/mm3 (150-450) 03/28/18 13:47 MPV 9.8 fl (8-11.3) 03/28/18 13:47 Immature Gran % (Auto) 0.50 % (0.001-0.429) H 03/28/18 13:47 Immature Gran # (Auto) 0.04 K/mm3 (0.000-0.0310) H 03/28/18 13:47 Neutrophils % 61.2 % (42-75.0) 03/28/18 13:47 Lymphocytes % 26.4 % (20-51) 03/28/18 13:47 Monocytes % 6.1 % (0.0-9) 03/28/18 13:47 Eosinophils % 5.4 % (0.0-3.0) H 03/28/18 13:47 Basophils % 0.4 % (0.0-1.0) 03/28/18 13:47 Nucleated RBC % 0.0 k/mm3 (0-1) 03/28/18 13:47 Neutrophils # 5.2 K/mm3 (1.3-6.0) 03/28/18 13:47 Lymphocytes # 2.22 k/mm3 (1.5-3.5) 03/28/18 13:47 Monocytes # 0.5 k/mm3 (0.0-1.0) 03/28/18 13:47 Eosinophils # 0.5 k/mm3 (0.0-0.7) 03/28/18 13:47 Absolute Basophils 0.0 k/mm3 (0.0-0.1) 03/28/18 13:47 Sodium 135 mmol/L (132-142) 03/28/18 15:45 Plasma Sodium 136 mmol/L (130-142) 03/28/18 15:45 Potassium 4.3 mmol/L (3.4-4.6) 03/28/18 15:45 Chloride 100 mmol/L (97-106) 03/28/18 15:45 Carbon Dioxide 29.3 mmol/L (24-32.6) 03/28/18 15:45 Anion Gap 10.0 mmol/L (6.8-13.8) 03/28/18 15:45 BUN 14 mg/dL (6-23) 03/28/18 15:45 Creatinine 0.77 mg/dL (0.4-1.4) 03/28/18 15:45 Est GFR (Non-Af Amer) 115 mL/min (60-130) D 03/28/18 15:45 BUN/Creatinine Ratio 18.2 (9.0-21.6) 03/28/18 15:45 Random Glucose 188 mg/dL (70-110) H 03/28/18 15:45 Calcium 8.5 mg/dL (7.9-10.9) 03/28/18 15:45 Calcium Adj for Albumin 9.5 mg/dL (8.4-10.2) 03/28/18 15:45 Total Bilirubin 0.3 mg/dL (0.0-1.1) 03/28/18 15:45 AST 15 U/L (0-48) 03/28/18 15:45 ALT 13 U/L (19-67) L 03/28/18 15:45 Alkaline Phosphatase 99 U/L (50-170) 03/28/18 15:45 C-Reactive Prot, Quant 9.4 mg/dL (0.0-0.9) H 03/28/18 15:45 Total Protein 7.5 gm/dL (6.2-8.2) 03/28/18 15:45 Albumin 2.3 gm/dl (3.4-5.0) L 03/28/18 15:45 Assessment/Plan - Narrative Narrative: Jarod is a 47 yo male with: 1) Suspected osteomyelitis of right 5th toe with abscess and cellulitis. Will treat with surgical debridement. Will obtain records from [facility] to review any wound cultures. He was previously treated with bactrim as outpatient. Due to concern for osteo recommend atleast two weeks of antibiotics, in addition to amputation. Wounds are secondary to uncontrolled, insulin dependent diabetes Mellitus Type 2. 2) Surgical Pre-operative Evaluation - Based on revised cardiac risk index Jarod's risk is 1% for cardiovascular event based on insulin dependent diabetes. I have reviewed vitals, exam, and labs and believe him to be medically cleared for surgery. - Assessment/Plan (1) Osteomyelitis of toe of right foot Problem: Chronic (2) Diabetic ulcer of both feet associated with type 2 diabetes mellitus Problem: Chronic (3) Cellulitis of foot Problem: Acute (4) Osteomyelitis due to type 2 diabetes mellitus Problem: Ruled-out
[2018-03-29] MEDS ORDERED: KETOROLAC TROMETHAMINE 30 MG/ML VIAL IV PRN (04:15)
[2018-03-29] MEDS ORDERED: ceFAZolin SODIUM 1 GM VIAL IV PRN (06:00)
--- NOTE | 2018-03-29 09:16 | ANES ---
Anesthesia Pre Procedure Eval Vitals/Labs: Last Vital Signs Temp 36.6 C 03/29/18 08:00 Pulse 73 03/29/18 08:00 Resp 20 03/29/18 08:00 BP 146/60 H 03/29/18 08:00 Pulse Ox 98 03/29/18 08:00 HOME MEDICATIONS Insulin Glargine,Hum.rec.anlog [Lantus] 40 units SC QPM 08/10/14 [Last Taken 04/26/16] Insulin Lispro [Humalog] 15 units SC TIDWM 07/26/15 [Last Taken 04/27/16] Aspirin [Aspirin Enteric Coated] 81 mg PO DAILY 08/11/16 [Last Taken 08/08/16] Allergies/Adverse Reactions: Allergies Allergy/AdvReac Type Severity Reaction Status Date / Time gabapentin AdvReac Mild HYPOTENSION, Verified 08/14/16 07:05 NAUSEA, DIZZINESS WITH INCREASED DOSE - Planned Procedure Planned Procedure: Right fifth toe amputation Medication List Reviewed:: Yes Allergies Verified: Yes Medical History (Last Reviewed 03/29/18 @ 09:11 by Oliverio Jacob CRNA) HX CARPAL TUNNEL BILATERAL WRISTS lt foot great to, 2nd & 3rd toe amputati rt foot 2 nd digit amputation rt shoulder rotar cuff repair Surgical History (Last Reviewed 03/29/18 @ 09:11 by Oliverio Jacob CRNA) Hx of carpal tunnel repair Family History (Last Reviewed 03/29/18 @ 09:11 by Oliverio Jacob CRNA) Other Family history of cancer in father Family history of thyroid disease in mother Father has graduate school education History of non-insulin dependent diabetes mellitus in mother Patient's father is still living mother ANDREAFSKI mother hard of hearing - Family Anesthesia History Family History:: no untoward family reactions to anesthesia, no familial bleeding tendencies, no family history of clotting disorders, no family history of premature - Airway/Neck/Teeth Within Normal Limits:: Yes Teeth Condition: intact Neck Exam: full range of motion Mallampatti Score: 2 Thyromental (T-M) distance: > 6 cm Mandibulo Hyoid distance: > 3 cm - Respiratory Respiratory Physical: lungs clear Smoking Status: Former smoker Discussed smoking cessation including day of surgery: No Sleep Apnea currently treated: No Sleep Apnea by current assessment: No - morbid obesity - Cardiovascular Tolerate Activity: Fair Heart Sounds: S1 & S2, Regular - Anesthesia Assessment and Plan ASA Class: PS, II Anesthesia Type Plan: MAC Planned difficult intubation/equipment available: No
[2018-03-29] MEDS: RINGER'S SOLUTION,LACTATED 1,000 ML IV PRN ×3 (11:00→18:25)
[2018-03-29] MEDS ORDERED: ONDANSETRON HCL/PF 2 MG/ML VIAL IV PRN (11:59)
[2018-03-29] MEDS ORDERED: ZOLPIDEM TARTRATE 5 MG TABLET PO PRN (11:59)
[2018-03-29] MEDS ORDERED: MAGNESIUM HYDROXIDE 30 ML UDC PO PRN (11:59)
[2018-03-29] MEDS ORDERED: MAG HYDROX/ALUMINUM HYD/SIMETH 30 ML UDC PO PRN (11:59)
[2018-03-29] MEDS ORDERED: diphenhydrAMINE HCL 50 MG/ML VIAL IV PRN (11:59)
[2018-03-29] MEDS ORDERED: HYDROcodone/ACETAMINOPHEN 1 EACH TABLET PO PRN (11:59)
[2018-03-29] MEDS ORDERED: ACETAMINOPHEN 500 MG TABLET PO PRN (11:59)
--- NOTE | 2018-03-29 11:59 | POSTOP NO ---
Date of Surgery: 03/29/18 Patient Tolerated the Procedure: Well Post Operative Diagnosis/Procedures: Utility Operator Yarn: Archie Esposito PA-C Post-operative Diagnosis: right small toe infection with suspected osteomyelitis Finding: Above Procedure: Amputation of right small toe Estimated Blood Loss: Minimal Specimens: Toe to pathology
--- NOTE | 2018-03-29 12:14 | ANES ---
Post Anesthesia Discharge - Transfer of Care Transfer of Care handoff given to nurse: Yes - Anesthesia Post Op Note Anesthesia Post Op Note: care transferred to Med-spine surgeon
--- NOTE | 2018-03-29 12:14 | ANES ---
Post Anesthesia Assessment - Vital Signs Vitals: Last Vital Signs Temp 36.6 C 03/29/18 12:07 Pulse 68 03/29/18 12:07 Resp 16 03/29/18 12:07 BP 125/83 03/29/18 12:07 Pulse Ox 100 03/29/18 12:07 Airway Patency: Normal - Mental Status Level Of Consciousness: Awake - Pain Level Pain Score: 0 - N/V Assessment Nausea/Vomiting Presence: None Dehydration:: No
[2018-03-29] MEDS: ceFAZolin SODIUM 1 GM in DEXTROSE 5 % IN WATER 100 ML IV SCH ×4 (14:10→20:08)
[2018-03-29] MEDS ORDERED: SENNOSIDES/DOCUSATE SODIUM 1 TAB TABLET PO SCH (21:00)
[2018-03-29] MEDS ORDERED: INSULIN GLARGINE,HUM.REC.ANLOG 100 UNITS/ML VIAL SC SCH (21:00)
--- NOTE | 2018-03-29 22:09 | PN ---
Subjective - Date and Time Seen Date: 03/29/18 Time: 16:00 Subjective Narrative: Jarod reports feeling well. No fever, chills, nausea, or vomiting. Objective - Vitals Vitals: Last Vital Signs Temp 36.6 C 03/29/18 14:52 Pulse 63 03/29/18 17:54 Resp 16 03/29/18 17:54 BP 135/78 03/29/18 17:54 Pulse Ox 97 03/29/18 17:54 - Exam Constitutional: Present: Alert, Oriented x3, Cooperative ENT Exam: Present: hearing grossly normal Respiratory: Present: lungs clear, normal breath sounds Cardiovascular/Chest: Present: regular rate, rhythm, no murmur Abdomen: Present: Normal bowel sounds, soft, nontender, nondistended Appearance: Present: appropriate appearance, appropriate insight Eye contact: Present: cooperative, good eye contact, normal speech Thoughts: Present: normal thought pattern, no apparent hallucination Assessment/Plan Plan Narrative: Doing well. Await cultures from [facility]. If he is doing well tomorrow and able to send home on oral antibiotics will discharge to home. Surgery went well and patient has no concerns. - Problems/Diagnosis (1) Osteomyelitis of toe of right foot Problem: Chronic (2) Diabetic ulcer of both feet associated with type 2 diabetes mellitus Problem: Chronic (3) Cellulitis of foot Problem: Acute (4) Osteomyelitis due to type 2 diabetes mellitus Problem: Ruled-out
[2018-03-30] MEDS: ceFAZolin SODIUM 1 GM in DEXTROSE 5 % IN WATER 100 ML IV SCH ×2 (02:12)
[2018-03-30] MEDS: RINGER'S SOLUTION,LACTATED 1,000 ML IV PRN (03:27)
[2018-03-30] MEDS ORDERED: AMOX TR/POTASSIUM CLAVULANATE 875 MG TABLET PO SCH (09:30)
[2018-03-30 10:05] LABS: Hematocrit 36.4 % (42.0-52.0); Hemoglobin 11.6 gm/dL (13.5-18.0); Mean Cell Volume 86.5 fl (78-100); Mean Corpuscular Hemoglobin 27.6 pg (27-31); Mean Corpuscular Hgb Conc 31.9 g/dl (32-36); Mean Platelet Volume 9.5 fl (8-11.3); Neutrophil % 62.1 % (42-75.0); Platelet Count 332 K/mm3 (150-450); Red Blood Count 4.21 M/mm3 (4.7-6.0); Red Cell Distribution Width 12.9 % (11.5-14.0); White Blood Count 6.4 K/mm3 (4.0-10.5)
[2018-03-30 10:14] LABS: Albumin * 2.2 gm/dl (3.4-5.0); Anion Gap 10.1 mmol/L (6.8-13.8); BUN/Creatinine Ratio 12.5 (9.0-21.6); Bilirubin, Total 0.2 mg/dL (0.0-1.1); CRP 4.9 mg/dL (0.0-0.9); Calcium * 8.9 mg/dL (7.9-10.9); Carbon Dioxide 31.4 mmol/L (24-32.6); Potassium 4.5 mmol/L (3.4-4.6); Total Protein 7.4 gm/dL (6.2-8.2)
--- NOTE | 2018-03-30 12:29 | DS ---
(1) Osteomyelitis of toe of right foot Problem: Chronic (2) Diabetic ulcer of both feet associated with type 2 diabetes mellitus Problem: Chronic (3) Cellulitis of foot Problem: Acute (4) Osteomyelitis due to type 2 diabetes mellitus Problem: Ruled-out Description of Stay: Jarod is a 47 yo diabetic with recurrent diabetic foot ulcers that was admitted from [facility] in transfer for osteomyelitis of right fifth toe. He had been treated at [place] with unasyn for about 36 hours without significant improvement in toe. He did have resolution of cellulitis of right carr. He was transferred and had surgical amputation of right fifth toe on 03/29/18. He did well after surgery. He has had no fever and his WBC is normal. His toe was sent to pathology. Wound cultures from [facility] show MSSA. Due to osteomyelitis he will be treated for an extended period of time to eradicate infection. He previously was on bactrim as outpatient and did well until he ran out of antibiotics. Based on the culture that was received from [facility] I will treat with dicloxicillin 500mg q6hr x 8 weeks for osteomyelitis. Procedures Performed: see notes below List Procedures: Surgical amputation of right fifth toe on 03/29/18 (Dr. Diggs - Orthopedics) Results and Findings: Lab Pending Results 03/28/18 13:47: WBC 8.4, RBC 4.12 L, Hgb 11.4 L, Hct 35.3 L, MCV 85.7, MCH 27.7, MCHC 32.3, RDW 12.8, Plt Count 315, MPV 9.8, Immature Gran % (Auto) 0.50 H, Immature Gran # (Auto) 0.04 H, Neutrophils % 61.2, Lymphocytes % 26.4, Monocytes % 6.1, Eosinophils % 5.4 H, Basophils % 0.4, Nucleated RBC % 0.0, Neutrophils # 5.2, Lymphocytes # 2.22, Monocytes # 0.5, Eosinophils # 0.5, Absolute Basophils 0.0 03/28/18 15:45: Sodium 135, Plasma Sodium 136, Potassium 4.3, Chloride 100, Carbon Dioxide 29.3, Anion Gap 10.0, BUN 14, Creatinine 0.77, Est GFR (Non-Af Amer) 115 D, BUN/Creatinine Ratio 18.2, Random Glucose 188 H, Calcium 8.5, Calcium Adj for Albumin 9.5, Total Bilirubin 0.3, AST 15, ALT 13 L, Alkaline Phosphatase 99, C-Reactive Prot, Quant 9.4 H, Total Protein 7.5, Albumin 2.3 L 03/30/18 09:52: WBC 6.4 D, RBC 4.21 L, Hgb 11.6 L, Hct 36.4 L, MCV 86.5, MCH 27.6, MCHC 31.9 L, RDW 12.9, Plt Count 332, MPV 9.5, Immature Gran % (Auto) 0.30, Immature Gran # (Auto) 0.02, Neutrophils % 62.1, Lymphocytes % 25.8, Monocytes % 5.8, Eosinophils % 5.5 H, Basophils % 0.5, Nucleated RBC % 0.0, Neutrophils # 4.0, Lymphocytes # 1.65, Monocytes # 0.4, Eosinophils # 0.4, Absolute Basophils 0.0 03/30/18 09:52: Sodium 135, Plasma Sodium 137, Potassium 4.5, Chloride 98, Carbon Dioxide 31.4, Anion Gap 10.1, BUN 10, Creatinine 0.80, Est GFR (Non-Af Amer) 110, BUN/Creatinine Ratio 12.5, Random Glucose 229 H, Calcium 8.9, Calcium Adj for Albumin 10.0, Total Bilirubin 0.2, AST 14, ALT 14 L, Alkaline Phosphatase 99, C-Reactive Prot, Quant 4.9 H, Total Protein 7.4, Albumin 2.2 L Discharge Location: Home Disposition: Home self-care Condition: Good Discharge Activity: Other - Weight bearing on heel of right foot only Discharge Diet: Consistent carbs Referrals: David Starks DO [Primary Care Provider] - One Week Paul Diggs MD [Staff Physician] - 04/02/18 Nicole Roman DPM [Staff Physician] - 04/02/18 (Wound Clinic) Problem Oriented Discharge Instructions to Patient/Family: Bone and Joint Infections, Adult Additional Patient Instructions (free text): Keep dressing clean and dry. Weight bearing as tolerated on heel of right foot only. Prescriptions (Any new or edited meds): Dicloxacillin Sodium 500 mg PO Q6H #120 cap HYDROcodone/ACETAMINOPHEN [Belsano 5-325] 2 tab PO Q6H PRN #60 tab PRN Reason: Moderate Pain (Pain Scale 4-6) Complete Home Medications List: Complete Home Medication List: Insulin Glargine,Hum.rec.anlog [Lantus] 40 units SC QPM 08/10/14 Insulin Lispro [Humalog] 15 units SC TIDWM 07/26/15 Aspirin [Aspirin Enteric Coated] 81 mg PO DAILY 08/11/16 Acetaminophen [Tylenol] 1,000 mg PO Q6H PRN tablet 03/30/18 Dicloxacillin Sodium 500 mg PO Q6H #120 cap 03/30/18 HYDROcodone/ACETAMINOPHEN [Belsano 5-325] 2 tab PO Q6H PRN #60 tab 03/30/18 Sennosides/Docusate Sodium [Senokot-S] 2 tab PO HS tablet 03/30/18
[2018-03-30 12:52] VITALS: BP 146/78
== END 2018-03-30 13:23 | disposition home or self-care (01) | DRG 504 ==
LOC: MS 11:03
PROVIDERS: ADMIT Family Medicine; ATTEND Family Medicine
CPT/HCPCS: 36415; 73630; 80053; 85025; 86140; 87081; 88305; 88311; 90686

== ENCOUNTER 2018-08-06 13:24 | Observation (INO) ==
[2018-08-06] MEDS ORDERED: NON-FORMULARY 1 DOSE DOSE IV SCH ×2 (13:45→14:00)
[2018-08-06] MEDS ORDERED: MORPHINE SULFATE 4 MG/ML SYRG IV PRN (13:49)
[2018-08-06] MEDS ORDERED: ONDANSETRON HCL/PF 2 MG/ML VIAL IV PRN ×2 (13:50→16:03)
[2018-08-06] MEDS ORDERED: ACETAMINOPHEN 325 MG TABLET PO ONE (13:53)
--- NOTE | 2018-08-06 13:58 | ERNOTE ---
Integumentary HPI - Narrative Date of Service: 08/06/18 - General Presenting Symptoms: other Time Seen by Provider: 08/06/18 13:27 Source: patient - Cellulitis Exam Limitations: no limitations - Immun/Allergies/Home Medications Immunizations: IMMUNIZATION HX Immunizations Up to Date Yes History of Influenza Vaccine No Hx Pneumococcal Vaccination No Allergies/Adverse Reactions: Allergies Allergy/AdvReac Type Severity Reaction Status Date / Time gabapentin AdvReac Mild HYPOTENSION, Verified 04/30/18 10:15 NAUSEA, DIZZINESS WITH INCREASED DOSE Home Medications: HOME MEDICATIONS blood sugar diagnostic strips See Dose Instructions .ROUTE .MEDSUPPLY #300 ea 04/18/18 [Last Taken Unknown] insulin lispro (U-100) 100 unit/mL subcutaneous solution 15 unit SUBCUT TID #10 ml 04/18/18 [Last Taken Unknown] Aspirin [Aspirin EC] 325 mg PO DAILY 08/06/18 [Last Taken Unknown] Insulin Glargine,Hum.rec.anlog [Lantus] 48 unit SUBCUT QPM 08/06/18 [Last Taken Unknown] - History of Present Illness Narrative: This patient is a 48-year-old who came in from the podiatry office because of cellulitis. He has diabetes and has a chronic wound on the right foot. He noted a blister on the left foot on Sunday, 3 days ago. He noticed some redness of the leg 3 days ago also. He noticed a fever on Sunday, 2 days ago. He went to the podiatry clinic today and was noted to have streaking up to his groin and a fever so was sent here for further evaluation. He has not taken anything for his fever or pain. Review of Systems - Review of Systems Constitutional: Present: fever, malaise. Absent: weight loss EYE: Absent: blurred vision, double vision ENT: Absent: ear pain, nose congestion, nasal drainage, sore throat Respiratory: Present: cough - Once in a while. Absent: shortness of breath Cardiology: Present: chest pain, palpitations, syncope Gastrointestinal/Abdominal: Present: nausea. Absent: vomiting, diarrhea, co nstipation, abdominal pain Genitourinary: Absent: frequency, pain, dysuria, hematuria Musculoskeletal: Present: other - Leg pain Skin: Present: rash, change in color Neurological: Present: headache. Absent: anxiety, depressed, dizziness/light- headedness Endocrine: Present: other - He is diabetic. His glucose this morning was 142. He takes Humalog 15 units with meals and Lantus 48 units before bed Hematologic/Lymphatic: Present: other - No active bleeding Psych: Present: other - He denies being suicidal or homicidal. Absent: anxiety, depressed Medical History (Updated 04/15/18 @ 16:31 by David Starks DO) Cellulitis of left lower extremity Onset Date: Unknown Diabetic foot ulcer Onset Date: 11/26/14 Diabetic neuropathy Onset Date: 11/26/14 HX CARPAL TUNNEL BILATERAL WRISTS MRSA (methicillin resistant Staphylococcus aureus) Onset Date: Unknown Shoulder pain Onset Date: Unknown Type 2 diabetes mellitus Onset Date: 11/26/142004, 11/26/2014 Surgical History: Surgical History (Updated 04/15/18 @ 16:31 by David Starks DO) History of tonsillectomy Onset Date: Unknown age 8 years. Hx of carpal tunnel repair bilateral-1991, 1992 S/P foot surgery, right Onset Date: 03/29/18 amputation right small toe incision and drainage abscess Onset Date: 10/25/[address] Roman lt foot great to, 2nd & 3rd toe amputati rt foot 2 nd digit amputation rt shoulder rotar cuff repair Family History: Family History (Updated 04/02/18 @ 07:16 by Haylee Barber) Mother Diabetes Grandmother Diabetes Other Family history of cancer in father Family history of thyroid disease in mother Father has graduate school education History of non-insulin dependent diabetes mellitus in mother Patient's father is still living mother [place] mother hard of hearing Social History: Preferred Language Vincentian Do you have any bahai or No cultural preference? Smoking Status Never smoker Have you smoked in the past 12 No months Do you dip or chew tobacco Yes Abuse History No History of abuse Psych History No pertinent hx Alcohol Use none Drug Use none (Last Updated 05/30/18 @ 12:56 by Paul Diggs MD) No Social History Section defined Physical Exam - Physical Exam General Appearance: Present: wd/wn, alert, mild distress - He does not appear to feel well Head Exam: Present: normal inspection, no evidence of injury Eye Exam: Normal inspection: bilateral Ears, Nose, Throat: Present: normal ENT inspection, normal pharynx Neck: Present: normal inspection, nontender. Absent: lymphadenopathy (R), lymphadenopathy (L), thyromegaly Respiratory: Present: no respiratory distress, normal breath sounds, no accessory muscle use, lungs clear Cardiovascular/Chest: Present: regular rate, rhythm, no murmur Gastrointestinal/Abdominal: Present: normal bowel sounds, nontender, nondistended, soft, other - Obese. Back Exam: Present: normal inspection, normal range of motion Extremity Exam: Present: other - He has chronic venous stasis changes of both lower extremities with edema. His feet have bandages in place. The left lower extremity is more erythematous and warm. He has streaking from the internal knee to the inguinal area. No adenopathy is noted. Neurological Exam: Present: alert, oriented, normal mood/affect Skin Exam: Present: normal color, warm/dry Lymphatic Exam: Present: no adenopathy Progress - Results and Orders Patient's Lab Results:: I have reviewed the patient's lab results. Results and Orders: Laboratory Tests 08/06/18 08/06/18 08/06/18 14:06 14:06 14:06 WBC 10.6 H Hgb 12.7 L Hct 40.5 L Plt Count 372 Immature Gran % (Auto) 0.40 Neutrophils % 78.9 H Lymphocytes % 14.1 L Monocytes % 5.6 Eosinophils % 0.7 Sodium 133 Potassium 3.9 Chloride 97 Carbon Dioxide 28.0 Anion Gap 11.9 BUN 13 Creatinine 0.95 Est GFR (Non-Af Amer) 90 Random Glucose 161 H Lactic Acid, Venous 1.3 Calcium 8.8 Total Bilirubin 0.5 AST 15 ALT 18 L Alkaline Phosphatase 120 Total Protein 8.3 H Albumin 2.4 L - Vital Signs Patient's Vital Signs:: I have reviewed the patient's vital signs. Vital Signs: Vital Signs 08/06/18 13:26 Temperature 37.8 C Pulse Rate 86 Respiratory Rate 16 Blood Pressure 132/75 - Progress/Reassessment Chief Complaint: Cellulitis Departure Clinical Impression: Cellulitis of left leg, Diabetic foot ulcer, Diabetes - Departure Disposition: Still a patient Condition: Stable
[2018-08-06 14:12] LABS: Hematocrit 40.5 % (42.0-52.0); Hemoglobin 12.7 gm/dL (13.5-18.0); Mean Cell Volume 83.7 fl (78-100); Mean Corpuscular Hemoglobin 26.2 pg (27-31); Mean Corpuscular Hgb Conc 31.4 g/dl (32-36); Mean Platelet Volume 9.8 fl (8-11.3); Neutrophil # 8.4 K/mm3 (1.3-6.0); Neutrophil % 78.9 % (42-75.0); Platelet Count 372 K/mm3 (150-450); Red Blood Count 4.84 M/mm3 (4.7-6.0); Red Cell Distribution Width 13.6 % (11.5-14.0); White Blood Count 10.6 K/mm3 (4.0-10.5)
[2018-08-06] MEDS ORDERED: MEROPENEM 1 GM in NORMAL SALINE 100 ML IV SCH (14:15)
[2018-08-06 14:26] LABS: Albumin * 2.4 gm/dl (3.4-5.0); Anion Gap 11.9 mmol/L (6.8-13.8); BUN/Creatinine Ratio 13.7 (9.0-21.6); Bilirubin, Total 0.5 mg/dL (0.0-1.1); Ca. Corrected For Albumin 9.8 mg/dL (8.4-10.2); Calcium * 8.8 mg/dL (7.9-10.9); Potassium 3.9 mmol/L (3.4-4.6); Total Protein 8.3 gm/dL (6.2-8.2)
--- NOTE | 2018-08-06 16:05 | HP ---
Chief Complaint - Chief Complaint Date of Service: 08/06/18 Time of Service: 16:04 Chief Complaint: Left Leg Pain History of Present Illness: Jarod is a 48 yo male with Insulin Dependent Diabetes Mellitus type II with history of diabetic peripheral neuropathy and diabetic foot ulcers. He routinely sees Dr. Roman in the wound clinic for management of diabetic foot ulcers. He reports he has not been on antibiotics recently. He states that he has been doing well. His blood sugars are near 100 and his current wounds have been doing well. He was clear of any wounds on the left foot and had only been treating an ulcer on the right foot. He reports that two days ago he noticed some blood on his sock and then saw a new wound on his left foot. He was going to see Dr. Roman (Podiatry) today and have her treat this new wound. When he arrived to the podiatry clinic he was having difficulty walking due to left leg pain and swelling. He had a red streak from his foot up his inner thigh with significant pain. He denies fever, chills, nausea, or vomiting. Medical History (Updated 08/06/18 @ 16:12 by Nicole Roman DPM) Cellulitis of left lower extremity Onset Date: Unknown Diabetic foot ulcer Onset Date: 11/26/14 Diabetic neuropathy Onset Date: 11/26/14 HX CARPAL TUNNEL BILATERAL WRISTS MRSA (methicillin resistant Staphylococcus aureus) Onset Date: Unknown Shoulder pain Onset Date: Unknown Type 2 diabetes mellitus Onset Date: 11/26/142004, 11/26/2014 Surgical History: Surgical History (Updated 04/15/18 @ 16:31 by David Starks DO) History of tonsillectomy Onset Date: Unknown age 8 years. Hx of carpal tunnel repair bilateral-1991, 1992 S/P foot surgery, right Onset Date: 03/29/18 amputation right small toe incision and drainage abscess Onset Date: 10/25/[address] Roman lt foot great to, 2nd & 3rd toe amputati rt foot 2 nd digit amputation rt shoulder rotar cuff repair Family History: Family History (Updated 04/02/18 @ 07:16 by Haylee Barber) Mother Diabetes Grandmother Diabetes Other Family history of cancer in father Family history of thyroid disease in mother Father has graduate school education History of non-insulin dependent diabetes mellitus in mother Patient's father is still living mother [place] mother hard of hearing Social History: Patient Lives/Resources Home Utilized Occupation [employer] Preferred Language Jamaican Do you have any faith or No cultural preference? Smoking Status Never smoker Have you smoked in the past 12 No months Do you dip or chew tobacco No Abuse History No History of abuse Psych History No pertinent hx Alcohol Use none Drug Use none (Last Updated 05/30/18 @ 12:56 by Paul Diggs MD) No Social History Section defined Review Of Systems (GEN) - Review of Systems Generalized/Overall Review: Absent: Weakness, Chills, Fever, Fatigue EENTM: Present: No Symptoms Reported Respiratory: Absent: Cough, Shortness of Breath Cardiac: Present: Edema. Absent: Chest Pain, Palpitations Abdominal: Absent: Nausea, Vomiting Genitourinary: Present: No Symptoms Reported Musculoskeletal: Present: Joint Pain, Joint Swelling, Muscle Pain Neurological: Present: No Symptoms Reported Skin: Present: Change in Color Endocrine: Present: No Symptoms Reported Immunizations: IMMUNIZATION HX Immunizations Up to Date Yes History of Influenza Vaccine No Hx Pneumococcal Vaccination No Allergies/Adverse Reactions: Allergies Allergy/AdvReac Type Severity Reaction Status Date / Time gabapentin AdvReac Mild HYPOTENSION, Verified 04/30/18 10:15 NAUSEA, DIZZINESS WITH INCREASED DOSE Home Medications: HOME MEDICATIONS blood sugar diagnostic strips See Dose Instructions .ROUTE .MEDSUPPLY #300 ea 04/18/18 [Last Taken Unknown] insulin lispro (U-100) 100 unit/mL subcutaneous solution 15 unit SUBCUT TID #10 ml 04/18/18 [Last Taken Unknown] Aspirin [Aspirin EC] 325 mg PO DAILY 08/06/18 [Last Taken Unknown] Insulin Glargine,Hum.rec.anlog [Lantus] 48 unit SUBCUT QPM 08/06/18 [Last Taken Unknown] Exam - Exam Vital Signs: Vital Signs - Last Taken Temp 37.4 C 08/06/18 15:11 Pulse 78 08/06/18 15:11 Resp 14 08/06/18 15:11 BP 146/70 H 08/06/18 15:11 Pulse Ox 96 08/06/18 15:11 Constitutional: Present: Alert, Oriented x3, Cooperative ENT Exam: Present: hearing grossly normal Eye Exam: bilateral eye: normal inspection Respiratory: Present: lungs clear, normal breath sounds Cardiovascular/Chest: Present: regular rate, rhythm, no murmur Peripheral Pulses: radial (R): 2+, radial (L): 2+ Abdomen: Present: Normal bowel sounds, soft, nontender, nondistended Skin Exam: Present: other - Left plantar surface over metatarsal heads with 4x7cm ulcer with surrounding erythema that goes up medial calf and thigh and is tender to palpation from ankle to medial thigh Diagnostic Studies: Abnormal Lab Results 08/06/18 08/06/18 Range/Units 14: 14:06 WBC 10.6 H (4.0-10.5) K/mm3 Hgb 12.7 L (13.5-18.0) gm/dL Hct 40.5 L (42.0-52.0) % MCH 26.2 L (27-31) pg MCHC 31.4 L (32-36) g/dl Immature Gran # (Auto) 0.04 H (0.000-0.0310) K/mm3 Neutrophils % 78.9 H (42-75.0) % Lymphocytes % 14.1 L (20-51) % Neutrophils # 8.4 H (1.3-6.0) K/mm3 Lymphocytes # 1.49 L (1.5-3.5) k/mm3 Random Glucose 161 H (70-110) mg/dL ALT 18 L (19-67) U/L Total Protein 8.3 H (6.2-8.2) gm/dL Albumin 2.4 L (3.4-5.0) gm/dl Laboratory Results WBC 10.6 K/mm3 (4.0-10.5) H 08/06/18 14:06 RBC 4.84 M/mm3 (4.7-6.0) 08/06/18 14:06 Hgb 12.7 gm/dL (13.5-18.0) L 08/06/18 14:06 Hct 40.5 % (42.0-52.0) L 08/06/18 14:06 MCV 83.7 fl (78-100) 08/06/18 14:06 MCH 26.2 pg (27-31) L 08/06/18 14:06 MCHC 31.4 g/dl (32-36) L 08/06/18 14:06 RDW 13.6 % (11.5-14.0) 08/06/18 14:06 Plt Count 372 K/mm3 (150-450) 08/06/18 14:06 MPV 9.8 fl (8-11.3) 08/06/18 14:06 Immature Gran % (Auto) 0.40 % (0.001-0.429) 08/06/18 14:06 Immature Gran # (Auto) 0.04 K/mm3 (0.000-0.0310) H 08/06/18 14:06 78.9 % (42-75.0) H 08/06/18 14:06 14.1 % (20-51) L 08/06/18 14:06 5.6 % (0.0-9) 08/06/18 14:06 0.7 % (0.0-3.0) 08/06/18 14:06 0.3 % (0.0-1.0) 08/06/18 14:06 Nucleated RBC % 0.0 k/mm3 (0-1) 08/06/18 14:06 8.4 K/mm3 (1.3-6.0) H 08/06/18 14:06 1.49 k/mm3 (1.5-3.5) L 08/06/18 14:06 0.6 k/mm3 (0.0-1.0) 08/06/18 14:06 0.1 k/mm3 (0.0-0.7) 08/06/18 14:06 Absolute Basophils 0.0 k/mm3 (0.0-0.1) 08/06/18 14:06 Sodium 133 mmol/L (132-142) 08/06/18 14:06 134 mmol/L (130-142) 08/06/18 14:06 Potassium 3.9 mmol/L (3.4-4.6) 08/06/18 14:06 Chloride 97 mmol/L (97-106) 08/06/18 14:06 Carbon Dioxide 28.0 mmol/L (24-32.6) 08/06/18 14:06 11.9 mmol/L (6.8-13.8) 08/06/18 14:06 BUN 13 mg/dL (6-23) 08/06/18 14:06 0.95 mg/dL (0.4-1.4) 08/06/18 14:06 Est GFR (Non-Af Amer) 90 mL/min (60-130) 08/06/18 14:06 13.7 (9.0-21.6) 08/06/18 14:06 161 mg/dL (70-110) H 08/06/18 14:06 1.3 mmol/L (0.4-2.0) 08/06/18 14:06 Calcium 8.8 mg/dL (7.9-10.9) 08/06/18 14:06 Calcium Adj for Albumin 9.8 mg/dL (8.4-10.2) 08/06/18 14:06 0.5 mg/dL (0.0-1.1) 08/06/18 14:06 AST 15 U/L (0-48) 08/06/18 14:06 ALT 18 U/L (19-67) L 08/06/18 14:06 120 U/L (50-170) 08/06/18 14:06 8.3 gm/dL (6.2-8.2) H 08/06/18 14:06 2.4 gm/dl (3.4-5.0) L 08/06/18 14:06 Assessment/Plan - Narrative Narrative: Jarod is a 48 yo male with Uncontrolled Insulin Dependent DMII with peripheral neuropathy and diabetic foot ulcer with subsequent cellulitis up left leg from foot to left proximal medial thigh. He was given vancomycin and merem in the ER. I will stop these and change to clindamycin IV so that he can be easily transitioned to orals if we see improvement. Will monitor WBC. Erythema will be demarcated with marking pen. If symptoms and clinical findings are improved tomorrow he may be discharged to home on oral clinda with outpatient follow up. Expect 1 midnight stay, will admit to observation. - Assessment/Plan (1) Cellulitis of left leg Problem: Acute (2) Diabetic ulcer of left foot associated with diabetes mellitus due to underlying condition, with fat layer exposed Problem: Acute
[2018-08-06] MEDS: INSULIN LISPRO 100 UNITS/ML VIAL SC SCH (16:58)
[2018-08-06] MEDS ORDERED: VANCOMYCIN HCL 1.5 GM in DEXTROSE 5 % IN WATER 500 ML IV SCH ×2 (17:00)
[2018-08-06] MEDS ORDERED: INSULIN GLARGINE,HUM.REC.ANLOG 100 UNITS/ML VIAL SC SCH (17:00)
[2018-08-06] MEDS: CLINDAMYCIN PHOSPHATE 600 MG in DEXTROSE 5 % IN WATER 100 ML IV SCH ×2 (17:08)
[2018-08-07] MEDS: CLINDAMYCIN PHOSPHATE 600 MG in DEXTROSE 5 % IN WATER 100 ML IV SCH ×6 (01:28→17:16)
[2018-08-07] MEDS: HYDROcodone/ACETAMINOPHEN 1 EACH TABLET PO PRN ×3 (01:36→12:02)
[2018-08-07 05:36] LABS: Hematocrit 37.4 % (42.0-52.0); Hemoglobin 11.6 gm/dL (13.5-18.0); Mean Cell Volume 85.4 fl (78-100); Mean Corpuscular Hemoglobin 26.5 pg (27-31); Mean Platelet Volume 9.7 fl (8-11.3); Neutrophil # 8.1 K/mm3 (1.3-6.0); Neutrophil % 75.3 % (42-75.0); Platelet Count 341 K/mm3 (150-450); Red Blood Count 4.38 M/mm3 (4.7-6.0); Red Cell Distribution Width 13.8 % (11.5-14.0); White Blood Count 10.7 K/mm3 (4.0-10.5)
[2018-08-07 05:52] LABS: Albumin * 2.1 gm/dl (3.4-5.0); Anion Gap 10.6 mmol/L (6.8-13.8); BUN/Creatinine Ratio 16.7 (9.0-21.6); Bilirubin, Total 0.5 mg/dL (0.0-1.1); Ca. Corrected For Albumin 10.1 mg/dL (8.4-10.2); Calcium * 8.9 mg/dL (7.9-10.9); Carbon Dioxide 28.2 mmol/L (24-32.6); Potassium 3.8 mmol/L (3.4-4.6); Total Protein 7.6 gm/dL (6.2-8.2)
[2018-08-07] MEDS: INSULIN LISPRO 100 UNITS/ML VIAL SC SCH ×3 (07:01→17:17)
[2018-08-07] MEDS: ASPIRIN 325 MG TABLET.DR PO SCH (08:43)
--- NOTE | 2018-08-07 16:16 | CONS ---
[facility] - General Date of Service: 08/07/18 Narrative: Pt was seen yesterday by me in the wound center. On presentation, he was noted to have fever and visible chills, with new ulcer formation to the left foot and redness that extended from the foot up to the level of the groin. He was taken to the ED by nursing staff for further care with recommendation for admission for IV ABX. He was admitted from the ED, and I was consulted for further care of his foot ulcerations. He states today that he does feel much better than yesterday, no longer with chills. Relates his pain in the left leg has improved some with current ABX, but is still present, especially if the leg is touched. States that he feels like his lower leg is "going to pop open at any second" due to the amount of fluid retention. Denies any nausea or vomiting. Source: patient - History of Present Illness Allergies/Adverse Reactions: Allergies gabapentin Adverse Reaction (Mild, Verified 04/30/18 10:15) HYPOTENSION, NAUSEA, DIZZINESS WITH INCREASED DOSE Home Medications: Home Medications Medication Instructions Recorded Last Taken blood sugar diagnostic strips See Dose Instructions .ROUTE 04/18/18 Unknown .MEDSUPPLY #300 ea insulin lispro (U-100) 100 unit/mL 15 unit SUBCUT TID #10 ml 04/18/18 Unknown subcutaneous solution Aspirin [Aspirin EC] 325 mg PO DAILY 08/06/18 Unknown Insulin Glargine,Hum.rec.anlog 48 unit SUBCUT HS 08/06/18 Unknown [Lantus] Procedures Detachment at Left 2nd Toe, Complete, Open Approach (08/26/15) Detachment at Left 3rd Toe, Complete, Open Approach (08/26/15) Detachment at Right 2nd Toe, Complete, Open Approach (04/13/15) Detachment at Right 5th Toe, Complete, Open Approach (03/28/18) Division of joint capsule, ligament, or cartilage, foot and toe (10/25/14) Excision of Left Foot Subcutaneous Tissue and Fascia, Open Approach (03/28/16) Excision of Left Metatarsal, Open Approach (07/29/15) Introduction of Serum, Toxoid and Vaccine into Muscle, Percutaneous Approach (03/28/18) Other arthrotomy, foot and toe (10/25/14) Resection of Left Metatarsal, Open Approach (04/13/15) Medications - Medications Current Medications: Current Medications Hydrocodone Bitart/Acetaminophen ([place] 5-325) 1 each PO Q3H PRN PRN Reason: Moderate Pain (pain scale 4-6) Stop: 09/05/18 16:03 Last Admin: 08/07/18 12:02 Dose: 1 each Documented by: Aspirin (Aspirin Enteric Coated) 325 mg PO DAILY [facility] Stop: 09/06/18 09:01 Last Admin: 08/07/18 08:43 Dose: 325 mg Documented by: Clindamycin Phosphate 600 mg/ (Dextrose/Water) 104 mls @ 300 mls/hr IV Q8H [facility]; Protocol Stop: 09/05/18 17:01 Last Infusion: 08/07/18 09:04 Dose: Infused Documented by: Insulin Human Lispro (Humalog) 15 units SC ACINS [facility] Stop: 09/05/18 17:01 Last Admin: 08/07/18 11:56 Dose: 15 units Documented by: Morphine Sulfate (Morphine Sulfate) 4 mg IV Q20M PRN PRN Reason: Severe Pain (pain scale 7-10) Stop: 09/05/18 13:50 Last Admin: 08/06/18 14:15 Dose: 4 mg Documented by: Review of Systems - Review of Systems Generalized/Overall Review: Absent: Chills, Fever Respiratory: Absent: Shortness of Breath Cardiac: Present: Edema - significant Abdominal: Absent: Nausea, Vomiting, Diarrhea Musculoskeletal: Present: Other - left leg pain Neurological: Present: Numbness Skin: Present: Other - bilateral foot ulcerations, redness left leg Physical Examination - Exam Vital Signs: Vital Signs - Last Taken Temp 36.7 C 08/07/18 15:42 Pulse 75 08/07/18 15:42 Resp 16 08/07/18 15:42 BP 110/53 08/07/18 15:42 Pulse Ox 95 08/07/18 15:42 O2 Oxygen Delivery Method Room Air Constitutional: Present: Alert, Oriented x3, Cooperative Peripheral Pulses: dorsalis-pedis (R): 1+ - Pulses difficult to palpate due to extensive edema, dorsalis-pedis (L): 1+ - Pulses difficult to palpate due to extensive edema Extremity: Present: lower extremity edema, leg pain - left leg Skin Exam: Present: other - ulcerations to b/l feet, unchanged in size from visit yesterday. Ulceration to the left foot does appear less macerated today following debridement in wound center yesterday. Still with erythema that extends from the left foot up the medial aspect of the leg to the level of the groin, however is less intense today. Still painful and warm to touch. Lower legs with significant edema, left worse then right, skin taught and shiny. Neurologic: Present: sensory deficit Eye contact: Present: cooperative - Results and Findings: Lab/Microbiology results last 24 hrs: Abnormal/Pending Laboratory Last 24 HRS 08/07/18 08/07/18 05:33 05:33 WBC 10.7 H RBC 4.38 L Hgb 11.6 L Hct 37.4 L MCH 26.5 L MCHC 31.0 L Immature Gran # (Auto) 0.04 H Neutrophils % 75.3 H Lymphocytes % 14.7 L Neutrophils # 8.1 H Random Glucose 189 H ALT 15 L Albumin 2.1 L Culture 08/06/18 14:22 Blood Culture - Preliminary Blood NO GROWTH 24 HOURS 08/06/18 14:06 Blood Culture - Preliminary Blood NO GROWTH 24 HOURS 08/06/18 17:10 - Final Nares MRSA Negative - Assessments/Findings (1) Diabetic ulcer of both feet associated with type 2 diabetes mellitus Diagnosis(s): Ulcerations debrided in wound center yesterday, do not require debridement again today. Will do daily dressings with Aquacel Ag, dry gauze, cherrie, and HILDA bandage. Feet to be washed well with soap and water and dried with a clean towel prior to applying new dressings. Problem: Chronic (2) Cellulitis of left leg Diagnosis(s): Has improved some with current ABX. Still with redness and pain present in the left leg, not as intense as yesterday. No longer with chills or fever. May d/c home on oral ABX when stable per Dr. Starks. Will plan to f/u in wound center on 08/13/2018. Will continue to follow while he remains inpatient. Problem: Acute (3) Cellulitis of left foot Problem: Acute
[2018-08-07] MEDS ORDERED: ONDANSETRON HCL/PF 2 MG/ML VIAL IV ONE (17:05)
--- NOTE | 2018-08-07 17:05 | DS ---
(1) Cellulitis of left leg Problem: Acute (2) Diabetic ulcer of left foot associated with diabetes mellitus due to underlying condition, with fat layer exposed Problem: Acute Description of Stay: Jarod was admitted with left leg cellulitis secondary to uncontrolled insulin dependent DM Type II with peripheral neuropathy and diabetic foot ulcer. He was given a dose of vanco and meropenem in the ER but was started on Clindamycin on the floor. His erythema was marked and monitored. It should signs of improvement. His wound was treated by Podiatry. As he is improving I will discharge him on oral clindamycin. He will follow up with me in clinic and Dr. Roman in wound clinic. Procedures Performed: none Results and Findings: Pending Mircobiology Results 08/06/18 14:22 Blood Blood Culture - Preliminary NO GROWTH 24 HOURS 08/06/18 14:06 Blood Blood Culture - Preliminary NO GROWTH 24 HOURS Lab Pending Results 08/06/18 14:06: WBC 10.6 H, RBC 4.84, Hgb 12.7 L, Hct 40.5 L, MCV 83.7, MCH 26.2 L, MCHC 31.4 L, RDW 13.6, Plt Count 372, MPV 9.8, Immature Gran % (Auto) 0.40, Immature Gran # (Auto) 0.04 H, Neutrophils % 78.9 H, Lymphocytes % 14.1 L, Monocytes % 5.6, Eosinophils % 0.7, Basophils % 0.3, Nucleated RBC % 0.0, Neutrophils # 8.4 H, Lymphocytes # 1.49 L, Monocytes # 0.6, Eosinophils # 0.1, Absolute Basophils 0.0 08/06/18 14:06: Sodium 133, Plasma Sodium 134, Potassium 3.9, Chloride 97, Carbon Dioxide 28.0, Anion Gap 11.9, BUN 13, Creatinine 0.95, Est GFR (Non-Af Amer) 90, BUN/Creatinine Ratio 13.7, Random Glucose 161 H, Calcium 8.8, Calcium Adj for Albumin 9.8, Total Bilirubin 0.5, AST 15, ALT 18 L, Alkaline Phosphatase 120, Total Protein 8.3 H, Albumin 2.4 L 08/06/18 14:06: Lactic Acid, Venous 1.3 08/07/18 05:33: WBC 10.7 H, RBC 4.38 L, Hgb 11.6 L, Hct 37.4 L, MCV 85.4, MCH 26.5 L, MCHC 31.0 L, RDW 13.8, Plt Count 341, MPV 9.7, Immature Gran % (Auto) 0.40, Immature Gran # (Auto) 0.04 H, Neutrophils % 75.3 H, Lymphocytes % 14.7 L, Monocytes % 7.9, Eosinophils % 1.3, Basophils % 0.4, Nucleated RBC % 0.0, Ne utrophils # 8.1 H, Lymphocytes # 1.57, Monocytes # 0.8, Eosinophils # 0.1, Absolute Basophils 0.0 08/07/18 05:33: Sodium 133, Plasma Sodium 134, Potassium 3.8, Chloride 98, Ca rbon Dioxide 28.2, Anion Gap 10.6, BUN 17, Creatinine 1.02, Est GFR (Non-Af Amer) 83, BUN/Creatinine Ratio 16.7, Random Glucose 189 H, Calcium 8.9, Calcium Adj for Albumin 10.1, Total Bilirubin 0.5, AST 13, ALT 15 L, Alkaline Phosphatase 104, Total Protein 7.6, Albumin 2.1 L Discharge Location: Home Disposition: Home self-care Condition: Stable Discharge Activity: Activity as tolerated Discharge Diet: Consistent carbs Referrals: David Starks DO [Primary Care Provider] - One Week Nicole Roman DPM [Staff Physician] - 08/13/18 (Wound Clinic) Problem Oriented Discharge Instructions to Patient/Family: Diabetes and Foot Care, Cellulitis, Adult, [id number] Additional Patient Instructions (free text): Follow-up with Dr. Roman on 08/13/18 in the wound center. [facility] will call you tomorrow with time. Wash feet daily with soap and water, pat dry. Apply Aquacel AG, dry gauze, cherrie, and HILDA bandage. Call with any changes in condition. Prescriptions (Any new or edited meds): Clindamycin HCl [Cleocin HCl] 300 mg PO QID #40 cap HYDROcodone/ACETAMINOPHEN [[place] 5-325] 1 ea PO Q3H PRN #60 tab PRN Reason: Moderate Pain (Pain Scale 4-6) Complete Home Medications List: Complete Home Medication List: blood sugar diagnostic strips See Dose Instructions .ROUTE .MEDSUPPLY #300 ea 04/18/18 insulin lispro (U-100) 100 unit/mL subcutaneous solution 15 unit SUBCUT TID #10 ml 04/18/18 Aspirin [Aspirin EC] 325 mg PO DAILY 08/06/18 Insulin Glargine,Hum.rec.anlog [Lantus] 48 unit SUBCUT HS 08/06/18 Acetaminophen [Tylenol] 1,000 mg PO Q6H PRN tablet 08/07/18 Clindamycin HCl [Cleocin HCl] 300 mg PO QID #40 cap 08/07/18 HYDROcodone/ACETAMINOPHEN [[place] 5-325] 1 ea PO Q3H PRN #60 tab 08/07/18
[2018-08-07] MEDS: ACETAMINOPHEN 500 MG TABLET PO PRN (19:07)
[2018-08-07] MEDS ORDERED: INSULIN GLARGINE,HUM.REC.ANLOG 100 UNITS/ML VIAL SC SCH (21:00)
[2018-08-08] MEDS: CLINDAMYCIN PHOSPHATE 600 MG in DEXTROSE 5 % IN WATER 100 ML IV SCH ×4 (01:54→09:09)
[2018-08-08] MEDS: ACETAMINOPHEN 500 MG TABLET PO PRN (01:55)
[2018-08-08] MEDS: INSULIN LISPRO 100 UNITS/ML VIAL SC SCH ×2 (07:38→11:52)
[2018-08-08] MEDS: ASPIRIN 325 MG TABLET.DR PO SCH (09:07)
[2018-08-08 10:13] LABS: Anion Gap 10.2 mmol/L (6.8-13.8); Bilirubin, Total 0.4 mg/dL (0.0-1.1); Ca. Corrected For Albumin 9.7 mg/dL (8.4-10.2); Calcium * 8.4 mg/dL (7.9-10.9); Carbon Dioxide 30.3 mmol/L (24-32.6); Potassium 4.5 mmol/L (3.4-4.6)
[2018-08-08 10:24] LABS: Hematocrit 35.4 % (42.0-52.0); Hemoglobin 11.1 gm/dL (13.5-18.0); Mean Cell Volume 85.7 fl (78-100); Mean Corpuscular Hemoglobin 26.9 pg (27-31); Mean Corpuscular Hgb Conc 31.4 g/dl (32-36); Mean Platelet Volume 9.7 fl (8-11.3); Neutrophil # 7.9 K/mm3 (1.3-6.0); Neutrophil % 78.6 % (42-75.0); Platelet Count 364 K/mm3 (150-450); Red Blood Count 4.13 M/mm3 (4.7-6.0); Red Cell Distribution Width 13.8 % (11.5-14.0); White Blood Count 10.1 K/mm3 (4.0-10.5)
[2018-08-08] MEDS ORDERED: FUROSEMIDE 10 MG/ML VIAL IV ONE (11:30)
[2018-08-08] MEDS: HYDROcodone/ACETAMINOPHEN 1 EACH TABLET PO PRN (11:42)
--- NOTE | 2018-08-08 13:24 | PN ---
Subjective - Date and Time Seen Date: 08/07/18 Time: 08:30 Subjective Narrative: Jarod was feeling better through the day and was planned for discharge to home. However just prior to heading home he began having nausea, chills, and temperature began rising. He was having rigors. He did not feel well and due to the sudden change it was decided that he would stay overnight. Objective - Vitals Vitals: Last Vital Signs Selected Entries 08/07/18 11:06 Temperature 36.9 C Pulse Rate 75 Respiratory Rate 16 Blood Pressure 121/68 O2 Sat by Pulse Oximetry 95 Oxygen Delivery Method Room Air - Abnormal Lab Findings Abnormal Lab Findings: Abnormal Lab Results - Exam Constitutional: Present: Alert, Oriented x3, Cooperative ENT Exam: Present: hearing grossly normal Respiratory: Present: lungs clear, normal breath sounds Cardiovascular/Chest: Present: regular rate, rhythm, no murmur Abdomen: Present: Normal bowel sounds, soft, nontender, nondistended Skin Exam: Present: other - erythema improved of left leg Assessment/Plan Plan Narrative: Cellulitis is improved and had planned to discharge to home but he began to have worsening symptoms prior to discharge and he will be kept overnight to monitor for worsening condition. No change at this time, but if he continues to worsen will change antibiotics. - Problems/Diagnosis (1) Cellulitis of left leg Problem: Resolved (2) Diabetic ulcer of left foot associated with diabetes mellitus due to underlying condition, with fat layer exposed Problem: Acute
--- NOTE | 2018-08-08 13:27 | DS ---
(1) Cellulitis of left leg Problem: Acute (2) Diabetic ulcer of left foot associated with diabetes mellitus due to underlying condition, with fat layer exposed Problem: Acute Description of Stay: Jarod was admitted with left leg cellulitis secondary to uncontrolled insulin dependent DM Type II with peripheral neuropathy and diabetic foot ulcer. He was given a dose of vanco and meropenem in the ER but was started on Clindamycin on the floor. His erythema was marked and monitored. It showed signs of improvement. His wound was treated by Podiatry. He was set to be discharged to home on 08/07/18, however prior to discharge he began having chills and nausea. His temperature was rising and he nearly had a fever. His discharge was canceled as his clinical condition appeared to be worsening. He was monitored overnight and his symptoms resolved. Today he feels well. His swelling and erythema are further improved. His vitals are normal and his WBC has normalized. He is safe to discharge to home today on oral clindamycin. He will follow up with me in clinic and Dr. Roman in wound clinic. Procedures Performed: none Results and Findings: Pending Mircobiology Results 08/06/18 14:22 Blood Blood Culture - Preliminary NO GROWTH 24 HOURS 08/06/18 14:06 Blood Blood Culture - Preliminary NO GROWTH 24 HOURS Lab Pending Results 08/06/18 14:06: WBC 10.6 H, RBC 4.84, Hgb 12.7 L, Hct 40.5 L, MCV 83.7, MCH 26.2 L, MCHC 31.4 L, RDW 13.6, Plt Count 372, MPV 9.8, Immature Gran % (Auto) 0.40, Immature Gran # (Auto) 0.04 H, Neutrophils % 78.9 H, Lymphocytes % 14.1 L, Monocytes % 5.6, Eosinophils % 0.7, Basophils % 0.3, Nucleated RBC % 0.0, Neutrophils # 8.4 H, Lymphocytes # 1.49 L, Monocytes # 0.6, Eosinophils # 0.1, Absolute Basophils 0.0 08/06/18 14:06: Sodium 133, Plasma Sodium 134, Potassium 3.9, Chloride 97, Carbon Dioxide 28.0, Anion Gap 11.9, BUN 13, Creatinine 0.95, Est GFR (Non-Af Amer) 90, BUN/Creatinine Ratio 13.7, Random Glucose 161 H, Calcium 8.8, Calcium Adj for Albumin 9.8, Total Bilirubin 0.5, AST 15, ALT 18 L, Alkaline Phosphatase 120, Total Protein 8.3 H, Albumin 2.4 L 08/06/18 14:06: Lactic Acid, Venous 1.3 08/07/18 05:33: WBC 10.7 H, RBC 4.38 L, Hgb 11.6 L, Hct 37.4 L, MCV 85.4, MCH 26.5 L, MCHC 31.0 L, RDW 13.8, Plt Count 341, MPV 9.7, Immature Gran % (Auto) 0.40, Immature Gran # (Auto) 0.04 H, Neutrophils % 75.3 H, Lymphocytes % 14.7 L, Monocytes % 7.9, Eosinophils % 1.3, Basophils % 0.4, Nucleated RBC % 0.0, Neutrophils # 8.1 H, Lymphocytes # 1.57, Monocytes # 0.8, Eosinophils # 0.1, Absolute Basophils 0.0 08/07/18 05:33: Sodium 133, Plasma Sodium 134, Potassium 3.8, Chloride 98, Carbon Dioxide 28.2, Anion Gap 10.6, BUN 17, Creatinine 1.02, Est GFR (Non-Af Amer) 83, BUN/Creatinine Ratio 16.7, Random Glucose 189 H, Calcium 8.9, Calcium Adj for Albumin 10.1, Total Bilirubin 0.5, AST 13, ALT 15 L, Alkaline Phosphatase 104, Total Protein 7.6, Albumin 2.1 L 08/08/18 09:59: WBC 10.1, RBC 4.13 L, Hgb 11.1 L, Hct 35.4 L, MCV 85.7, MCH 26.9 L, MCHC 31.4 L, RDW 13.8, Plt Count 364, MPV 9.7, Immature Gran % (Auto) 0.30, Immature Gran # (Auto) 0.03, Neutrophils % 78.6 H, Lymphocytes % 13.1 L, Monocytes % 5.8, Eosinophils % 1.9, Basophils % 0.3, Nucleated RBC % 0.0, Neutrophils # 7.9 H, Lymphocytes # 1.32 L, Monocytes # 0.6, Eosinophils # 0.2, Absolute Basophils 0.0 08/08/18 09:59: Sodium 135, Plasma Sodium 138, Potassium 4.5, Chloride 99, Carbon Dioxide 30.3, Anion Gap 10.2, BUN 18, Creatinine 1.00, Est GFR (Non-Af Amer) 84, BUN/Creatinine Ratio 18.0, Random Glucose 272 H D, Calcium 8.4, Calcium Adj for Albumin 9.7, Total Bilirubin 0.4, AST 18, ALT 16 L, Alkaline Phosphatase 106, Total Protein 8.0, Albumin 2.0 L Discharge Location: Home Disposition: Home self-care Condition: Stable Discharge Activity: Activity as tolerated Discharge Diet: Consistent carbs Referrals: David Starks DO [Primary Care Provider] - One Week Nicole Roman DPM [Staff Physician] - 08/13/18 (Wound Clinic) Problem Oriented Discharge Instructions to Patient/Family: Diabetes and Foot Care, Cellulitis, Adult, [id number] Additional Patient Instructions (free text): Follow-up with Dr. Roman on 08/13/18 in the wound center at 1:00pm. Follow up with Dr. Starks in 1 week. Wash feet daily with soap and water, pat dry. Apply Aquacel AG, dry gauze, cherrie, and HILDA bandage. Call with any changes in condition. Prescriptions (Any new or edited meds): Clindamycin HCl [Cleocin HCl] 300 mg PO QID #40 cap HYDROcodone/ACETAMINOPHEN [[place] 5-325] 1 ea PO Q3H PRN #60 tab PRN Reason: Moderate Pain (Pain Scale 4-6) Complete Home Medications List: Complete Home Medication List: blood sugar diagnostic strips See Dose Instructions .ROUTE .MEDSUPPLY #300 ea 04/18/18 insulin lispro (U-100) 100 unit/mL subcutaneous solution 15 unit SUBCUT TID #10 ml 04/18/18 Aspirin [Aspirin EC] 325 mg PO DAILY 08/06/18 Insulin Glargine,Hum.rec.anlog [Lantus] 48 unit SUBCUT HS 08/06/18 Acetaminophen [Tylenol] 1,000 mg PO Q6H PRN tab 08/07/18 Clindamycin HCl [Cleocin HCl] 300 mg PO QID #40 cap 08/07/18 HYDROcodone/ACETAMINOPHEN [[place] 5-325] 1 ea PO Q3H PRN #60 tab 08/07/18
[2018-08-08 14:12] VITALS: BP 144/64
== END 2018-08-08 15:30 | disposition home or self-care (01) ==
LOC: ER 13:24 → MS 13:24
PROVIDERS: ADMIT Family Medicine; ATTEND Family Medicine
CPT/HCPCS: 36415; 80053; 83605; 85025; 87040; 87081; 96365; 96366; 96367; 96372; 96375; 99285; G0378; J2405

== ENCOUNTER 2018-12-02 21:45 | Observation (INO) ==
[2018-12-02] MEDS ORDERED: ONDANSETRON HCL/PF 2 MG/ML VIAL IV ONE (22:32)
--- NOTE | 2018-12-02 22:35 | ERNOTE ---
Medical Problem HPI - General Chief Complaint: Nausea/Vomiting Time Seen by Provider: 12/02/18 22:18 Source: patient Exam Limitations: no limitations - Immun/Allergies/Home Medications Immunizations: IMMUNIZATION HX Immunizations Up to Date Yes History of Influenza Vaccine No Hx Pneumococcal Vaccination No Allergies/Adverse Reactions: Allergies gabapentin Adverse Reaction (Mild, Verified 12/02/18 22:04) HYPOTENSION, NAUSEA, DIZZINESS WITH INCREASED DOSE Home Medications: HOME MEDICATIONS blood sugar diagnostic strips See Dose Instructions .ROUTE .MEDSUPPLY #300 ea 04/18/18 [Last Taken Unknown] insulin lispro (U-100) 100 unit/mL subcutaneous solution 15 unit SUBCUT TID #10 ml 04/18/18 [Last Taken Unknown] Aspirin [Aspirin EC] 325 mg PO DAILY 08/06/18 [Last Taken Unknown] Insulin Glargine,Hum.rec.anlog [Lantus] 48 unit SUBCUT HS 08/06/18 [Last Taken Unknown] Acetaminophen [Tylenol] 1,000 mg PO Q6H PRN tab 08/07/18 [Last Taken Unknown] cephalexin 500 mg capsule 500 mg PO BID #14 cap 11/04/18 [Last Taken Unknown] diphenhydramine 25 mg capsule 25 mg PO Q8H PRN #14 cap 11/04/18 [Last Taken Unknown] - History of Present History Narrative: Patient states he has had some nausea dry heaving today and for the past 2 days he has had diarrhea. He has chronic wounds in both of his feet from diabetes but today his left leg is more sore and red. Timing: getting worse Severity: moderate Modifying Factors - (Worsens): Present: eating Review of Systems - Review of Systems Constitutional: Present: fatigue, malaise. Absent: fever Respiratory: Absent: shortness of breath Cardiology: Absent: chest pain Gastrointestinal/Abdominal: Present: nausea, vomiting, diarrhea. Absent: abdominal pain Genitourinary: Absent: pain, dysuria Skin: Present: See HPI, change in color Neurological: Absent: numbness, tingling Endocrine: Present: excessive sweating Medical History (Updated 12/03/18 @ 00:20 by Mac Washington DO) Cellulitis of left lower extremity Onset Date: Unknown Diabetic foot ulcer Onset Date: 11/26/14 Diabetic neuropathy Onset Date: 11/26/14 HX CARPAL TUNNEL BILATERAL WRISTS MRSA (methicillin resistant Staphylococcus aureus) Onset Date: Unknown Shoulder pain Onset Date: Unknown Type 2 diabetes mellitus Onset Date: 11/26/142004, 11/26/2014 Surgical History: Surgical History (Updated 04/15/18 @ 16:31 by David Starks DO) History of tonsillectomy Onset Date: Unknown age 8 years. Hx of carpal tunnel repair bilateral-1991, 1992 S/P foot surgery, right Onset Date: 03/29/18 amputation right small toe incision and drainage abscess Onset Date: 10/25/[address] Roman lt foot great to, 2nd & 3rd toe amputati rt foot 2 nd digit amputation rt shoulder rotar cuff repair Family History: Family History (Updated 04/02/18 @ 07:16 by Haylee Barber) Mother Diabetes Grandmother Diabetes Other Family history of cancer in father Family history of thyroid disease in mother Father has graduate school education History of non-insulin dependent diabetes mellitus in mother Patient's father is still living mother [place] mother hard of hearing Social History: (Last Reviewed 12/02/18 @ 22:27 by Mac Washington DO) Social History: Marital status: Single household members: none current occupational status: employed 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 Highest education level completed: Associate degree: academi Service: No Tobacco: Smoking Status: Former smoker Alcohol: alcohol intake: former Substance Use: substance use type: does not use Dietary Habits: caffeine: Yes Type: coffee Physical Exam - Physical Exam General Appearance: Present: wd/wn, alert, mild distress Head Exam: Present: normal inspection, no evidence of injury Eye Exam: Normal inspection: bilateral Neck: Present: normal inspection, supple Respiratory: Present: no respiratory distress, normal breath sounds, no accessory muscle use, chest nontender, lungs clear Cardiovascular/Chest: Present: regular rate, rhythm, no murmur, normal peripheral pulses Gastrointestinal/Abdominal: Present: normal bowel sounds, nontender, nondistended, soft Extremity Exam: Present: no edema, calf tenderness - Left side with any superficial touching of the skin., other - Patient has 2 remaining toes on the left side and 3 remaining toes on the right side from previous amputations Neurological Exam: Present: alert, oriented, normal mood/affect, no motor/sensory deficits Skin Exam: Present: skin rash, other - There is a large diabetic ulcer on the sole of the left foot. There is some small nearly healed ulcers on the tip of the foot where there is been amputations. Most of the foot is somewhat red to getting more red as it goes up the leg up to within 3 to 4 cm of the knee it is very warm and red Lymphatic Exam: Present: no adenopathy Progress - Results and Orders Patient's Lab Results:: I have reviewed the patient's lab results. Results and Orders: Laboratory Tests 12/02/18 12/02/18 22:55 23:00 WBC 18.3 H Hgb 13.6 Hct 41.4 L Plt Count 315 Neutrophils % 91.3 H Sodium 132 Potassium 4.6 D Chloride 96 L BUN 23 Creatinine 1.48 H Random Glucose 416 H Calcium 9.6 Total Bilirubin 0.8 AST 12 ALT 15 L Alkaline Phosphatase 131 Total Protein 8.8 H Albumin 2.9 L - Vital Signs Patient's Vital Signs:: I have reviewed the patient's vital signs. Vital Signs: Vital Signs 12/02/18 22:02 Temperature 36.3 C Pulse Rate 102 H Respiratory Rate 19 Blood Pressure 117/78 O2 Sat by Pulse Oximetry 99 - X-Ray X-Ray #1 X-Ray: abdomen Interpretation: Interp. by me X-ray Comments: Nonspecific bowel gas pattern, mild stool retention throughout. No free air or evidence of obstruction. - Progress/Reassessment Chief Complaint: Nausea/Vomiting Progress:: Improved Progress Note-Subjective: 12/03/18 00:[address] Palencia about that patient and my recommendations for antibiotics due to his previous cultures and multidrug resistance. Dr. Palencia agreed with admission. Departure Clinical Impression: Cellulitis and abscess of left leg, Diabetes mellitus type 2 in obese Sepsis Qualifiers: Sepsis type: sepsis due to unspecified organism Sepsis acute organ dysfunction status: with acute organ dysfunction Severe sepsis acute organ dysfunction type: unspecified Severe sepsis shock status: without septic shock Qualified Code(s): A41.9 - Sepsis, unspecified organism - Departure Disposition: Still a patient Condition: Fair
[2018-12-02 22:58] LABS: Hematocrit 41.4 % (42.0-52.0); Hemoglobin 13.6 gm/dL (13.5-18.0); Mean Cell Volume 83.5 fl (78-100); Mean Corpuscular Hemoglobin 27.4 pg (27-31); Mean Corpuscular Hgb Conc 32.9 g/dl (32-36); Mean Platelet Volume 10.7 fl (8-11.3); Neutrophil # 16.8 K/mm3 (1.3-6.0); Neutrophil % 91.3 % (42-75.0); Platelet Count 315 K/mm3 (150-450); Red Blood Count 4.96 M/mm3 (4.7-6.0); Red Cell Distribution Width 14.8 % (11.5-14.0); White Blood Count 18.3 K/mm3 (4.0-10.5)
[2018-12-02 23:10] LABS: Albumin * 2.9 gm/dl (3.4-5.0); BUN/Creatinine Ratio 15.5 (9.0-21.6); Bilirubin, Total 0.8 mg/dL (0.0-1.1); Ca. Corrected For Albumin 10.2 mg/dL (8.4-10.2); Calcium * 9.6 mg/dL (7.9-10.9); Carbon Dioxide 25.6 mmol/L (24-32.6); Potassium 4.6 mmol/L (3.4-4.6); Total Protein 8.8 gm/dL (6.2-8.2)
[2018-12-02] MEDS ORDERED: KETOROLAC TROMETHAMINE 30 MG/ML VIAL IV ONE (23:17)
[2018-12-02 23:52] LABS: Urine Bilirubin Negative (NEGATIVE); Urine Blood 25 /ul (NEGATIVE); Urine Ketone Negative (NEGATIVE); Urine Nitrite Negative (NEGATIVE); Urine Protein >=300 mg/dL (NEGATIVE); Urine Urobilinogen Normal (NORMAL)
[2018-12-03 00:05] LABS: Urine Appearance Clear (CLEAR); Urine Bacteria 1+; Urine Color Yellow; Urine Mucus Moderate - 2+; Urine RBC 0-5 /hpf (0-5); Urine WBC 0-5 /hpf (0-5)
[2018-12-03] MEDS ORDERED: INSULIN LISPRO 100 UNITS/ML VIAL SC ONE (00:14)
[2018-12-03] MEDS ORDERED: LEVOFLOXACIN IN DEXTROSE 5 % 750 MG/150 ML BAG IV ONE (00:24)
[2018-12-03] MEDS ORDERED: VANCOMYCIN HCL IV ONE ×2 (00:41)
[2018-12-03] MEDS ORDERED: DEXTROSE 5% IV ONE ×2 (00:41)
[2018-12-03] MEDS ORDERED: WATER IV ONE ×2 (00:41)
[2018-12-03] MEDS ORDERED: SACCHAROMYCES BOULARDII 250 MG CAPSULE PO SCH (09:00)
--- NOTE | 2018-12-03 12:29 | HPDIS ---
Chief Complaint - Chief Complaint Date of Service: 12/03/18 Time of Service: 09:00 Chief Complaint: Left leg redness, nausea, vomiting Medical History (Updated 12/03/18 @ 00:20 by Mac Washington DO) Cellulitis of left lower extremity Onset Date: Unknown Diabetic foot ulcer Onset Date: 11/26/14 Diabetic neuropathy Onset Date: 11/26/14 HX CARPAL TUNNEL BILATERAL WRISTS MRSA (methicillin resistant Staphylococcus aureus) Onset Date: Unknown Shoulder pain Onset Date: Unknown Type 2 diabetes mellitus Onset Date: 11/26/142004, 11/26/2014 Surgical History: Surgical History (Updated 04/15/18 @ 16:31 by David Starks DO) History of tonsillectomy Onset Date: Unknown age 8 years. Hx of carpal tunnel repair bilateral-1991, 1992 S/P foot surgery, right Onset Date: 03/29/18 amputation right small toe incision and drainage abscess Onset Date: 10/25/[address] Roman lt foot great to, 2nd & 3rd toe amputati rt foot 2 nd digit amputation rt shoulder rotar cuff repair Family History: Family History (Updated 04/02/18 @ 07:16 by Haylee Barber) Mother Diabetes Grandmother Diabetes Other Family history of cancer in father Family history of thyroid disease in mother Father has graduate school education History of non-insulin dependent diabetes mellitus in mother Patient's father is still living mother [place] mother hard of hearing Social History: (Last Reviewed 12/02/18 @ 22:27 by Mac Washington DO) Social History: Marital status: Single household members: none current occupational status: employed 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 [employer] Highest education level completed: Associate degree: academi Service: No Tobacco: Smoking Status: Former smoker Alcohol: alcohol intake: former Substance Use: substance use type: does not use Dietary Habits: caffeine: Yes Type: coffee Immunizations: IMMUNIZATION HX Immunizations Up to Date Yes History of Influenza Vaccine No Hx Pneumococcal Vaccination No Allergies/Adverse Reactions: Allergies Allergy/AdvReac Type Severity Reaction Status Date / Time gabapentin AdvReac Mild HYPOTENSION, Verified 12/02/18 22:04 NAUSEA, DIZZINESS WITH INCREASED DOSE Home Medications: HOME MEDICATIONS blood sugar diagnostic strips See Dose Instructions .ROUTE .MEDSUPPLY #300 ea 04/18/18 [Last Taken Unknown] Aspirin [Aspirin EC] 81 mg PO DAILY 08/06/18 [Last Taken Unknown] Acetaminophen [Tylenol] 1,000 mg PO Q6H PRN tab 08/07/18 [Last Taken Unknown] Insulin Glargine,Hum.rec.anlog [Lantus] 48 unit SUBCUT HS #1 vial 12/03/18 [Last Taken Unknown] Insulin Lispro [Humalog] 17 unit SUBCUT AC #1 vial 12/03/18 [Last Taken Unknown] Levofloxacin [Levaquin] 750 mg PO Q48H #10 tab 12/03/18 [Last Taken Unknown] Saccharomyces Boulardii [Florastor] 250 mg PO BID #60 cap 12/03/18 [Last Taken Unknown] Exam - Exam Vital Signs: Vital Signs - Last Taken Temp 36.7 C 12/03/18 11:10 Pulse 74 12/03/18 11:10 Resp 16 12/03/18 11:10 BP 139/75 12/03/18 11:10 Pulse Ox 99 12/03/18 11:10 Diagnostic Studies: Abnormal Lab Results 12/02/18 12/02/18 12/02/18 Range/Units 22:55 23:00 23:25 WBC 18.3 H (4.0-10.5) K/mm3 Hct 41.4 L (42.0-52.0) % RDW 14.8 H (11.5-14.0) % Immature Gran # (Auto) 0.07 H (0.000-0.0310) K/mm3 Neutrophils % 91.3 H (42-75.0) % Lymphocytes % 5.2 L (20-51) % Neutrophils # 16.8 H (1.3-6.0) K/mm3 Lymphocytes # 0.96 L (1.5-3.5) k/mm3 Chloride 96 L (97-106) mmol/L Anion Gap 15.0 H (6.8-13.8) mmol/L Creatinine 1.48 H (0.4-1.4) mg/dL Est GFR (Non-Af Amer) 54 L (60-130) mL/min Random Glucose 416 H (70-110) mg/dL Lactic Acid, Venous 3.2 H* (0.4-2.0) mmol/L ALT 15 L (19-67) U/L Total Protein 8.8 H (6.2-8.2) gm/dL Albumin 2.9 L (3.4-5.0) gm/dl Urine Protein (NEGATIVE) mg/dL Urine Glucose (UA) (NEGATIVE) mg/dL Urine Blood (NEGATIVE) /ul Prot Sulfosalicylic Acd (0) mg/dL Urine Bacteria (NONE) Urine Mucus (NONE) 12/02/18 12/03/18 12/03/18 Range/Units 23:49 02:30 05:45 WBC (4.0-10.5) K/mm3 Hct (42.0-52.0) % RDW (11.5-14.0) % Immature Gran # (Auto) (0.000-0.0310) K/mm3 Neutrophils % (42-75.0) % Lymphocytes % (20-51) % Neutrophils # (1.3-6.0) K/mm3 Lymphocytes # (1.5-3.5) k/mm3 Chloride (97-106) mmol/L Anion Gap (6.8-13.8) mmol/L Creatinine 1.99 H D (0.4-1.4) mg/dL Est GFR (Non-Af Amer) (60-130) mL/min Random Glucose (70-110) mg/dL Lactic Acid, Venous 2.3 H* (0.4-2.0) mmol/L ALT (19-67) U/L Total Protein (6.2-8.2) gm/dL Albumin (3.4-5.0) gm/dl Urine Protein >=300 H (NEGATIVE) mg/dL Urine Glucose (UA) >=1000 H (NEGATIVE) mg/dL Urine Blood 25 H (NEGATIVE) /ul Prot Sulfosalicylic Acd 4+ H (0) mg/dL Urine Bacteria 1+ H (NONE) Urine Mucus Moderate - 2+ H (NONE) Laboratory Results WBC 18.3 K/mm3 (4.0-10.5) H 12/02/18 22:55 RBC 4.96 M/mm3 (4.7-6.0) 12/02/18 22:55 Hgb 13.6 gm/dL (13.5-18.0) 12/02/18 22:55 Hct 41.4 % (42.0-52.0) L 12/02/18 22:55 MCV 83.5 fl (78-100) 12/02/18 22:55 MCH 27.4 pg (27-31) 12/02/18 22:55 MCHC 32.9 g/dl (32-36) 12/02/18 22:55 RDW 14.8 % (11.5-14.0) H 12/02/18 22:55 Plt Count 315 K/mm3 (150-450) 12/02/18 22:55 MPV 10.7 fl (8-11.3) 12/02/18 22:55 Immature Gran % (Auto) 0.40 % (0.001-0.429) 12/02/18 22:55 Immature Gran # (Auto) 0.07 K/mm3 (0.000-0.0310) H 12/02/18 22:55 91.3 % (42-75.0) H 12/02/18 22:55 5.2 % (20-51) L 12/02/18 22:55 2.6 % (0.0-9) 12/02/18 22:55 0.2 % (0.0-3.0) 12/02/18 22:55 0.3 % (0.0-1.0) 12/02/18 22:55 Nucleated RBC % 0.0 k/mm3 (0-1) 12/02/18 22:55 16.8 K/mm3 (1.3-6.0) H 12/02/18 22:55 0.96 k/mm3 (1.5-3.5) L 12/02/18 22:55 0.5 k/mm3 (0.0-1.0) 12/02/18 22:55 0.0 k/mm3 (0.0-0.7) 12/02/18 22:55 Absolute Basophils 0.1 k/mm3 (0.0-0.1) 12/02/18 22:55 Sodium 132 mmol/L (132-142) 12/02/18 23:00 137 mmol/L (130-142) 12/02/18 23:00 Potassium 4.6 mmol/L (3.4-4.6) D 12/02/18 23:00 Chloride 96 mmol/L (97-106) L 12/02/18 23:00 Carbon Dioxide 25.6 mmol/L (24-32.6) 12/02/18 23:00 15.0 mmol/L (6.8-13.8) H 12/02/18 23:00 BUN 23 mg/dL (6-23) 12/02/18 23:00 1.99 mg/dL (0.4-1.4) H D 12/03/18 05:45 Est GFR (Non-Af Amer) 54 mL/min (60-130) L 12/02/18 23:00 15.5 (9.0-21.6) 12/02/18 23:00 416 mg/dL (70-110) H 12/02/18 23:00 2.3 mmol/L (0.4-2.0) H* 12/03/18 02:30 Calcium 9.6 mg/dL (7.9-10.9) 12/02/18 23:00 Calcium Adj for Albumin 10.2 mg/dL (8.4-10.2) 12/02/18 23:00 0.8 mg/dL (0.0-1.1) 12/02/18 23:00 AST 12 U/L (0-48) 12/02/18 23:00 ALT 15 U/L (19-67) L 12/02/18 23:00 131 U/L (50-170) 12/02/18 23:00 8.8 gm/dL (6.2-8.2) H 12/02/18 23:00 2.9 gm/dl (3.4-5.0) L 12/02/18 23:00 Yellow 12/02/18 23:49 Clear (CLEAR) 12/02/18 23:49 6.0 pH (5.0-7.0) 12/02/18 23:49 Ur Specific [place] 1.020 SP.GR. (1.005-1.030) 12/02/18 23:49 >=300 mg/dL (NEGATIVE) H 12/02/18 23:49 >=1000 mg/dL (NEGATIVE) H 12/02/18 23:49 Negative mg/dL (NEGATIVE) 12/02/18 23:49 25 /ul (NEGATIVE) H 12/02/18 23:49 Negative (NEGATIVE) 12/02/18 23:49 Negative mg/dl (NEGATIVE) 12/02/18 23:49 Prot Sulfosalicylic Acd 4+ mg/dL (0) H 12/02/18 23:49 Normal EU/dl (NORMAL) 12/02/18 23:49 Ur Leukocyte Esterase Negative /ul (NEGATIVE) 12/02/18 23:49 0-5 /hpf (0-5) 12/02/18 23:49 0-5 /hpf (0-5) 12/02/18 23:49 Ur Epithelial Cells 0-5 /hpf (0-5) 12/02/18 23:49 1+ (NONE) H 12/02/18 23:49 Moderate - 2+ (NONE) H 12/02/18 23:49 Culture to follow 12/02/18 23:49 Date of Discharge:: 12/03/18 Description of Stay: Jarod is a 48 yo male with known poorly controlled diabetes mellitus Type II, insulin dependent, with frequent diabetic foot ulcers. He has ulcers on both feet that are currently being treated by wound clinic/Dr. Roman. He has not been on antibiotics recently. He was admitted for left leg cellulitis, WBC of 18K, elevated lactate, and elevated creatinine. There was concern initially for sepsis and he was given IV fluids and started on vancomycin and levaquin. Overni ght he improved dramatically and this morning feels great, has no pain in left leg, no fever or chills, and redness in leg has resolved. Due to the dramatic improvement and is currently feeling well, will discharge to home. He has a follow up with Dr. Roman this afternoon and will keep that appointment. I will give him levaquin 750mg PO [id number] based on GFR. Encouraged to stay hydrated. Procedures Performed: none Results and Findings: Lab Pending Results 12/02/18 22:55: WBC 18.3 H, RBC 4.96, Hgb 13.6, Hct 41.4 L, MCV 83.5, MCH 27.4, MCHC 32.9, RDW 14.8 H, Plt Count 315, MPV 10.7, Immature Gran % (Auto) 0.40, Immature Gran # (Auto) 0.07 H, Neutrophils % 91.3 H, Lymphocytes % 5.2 L, Monocytes % 2.6, Eosinophils % 0.2, Basophils % 0.3, Nucleated RBC % 0.0, Neutrophils # 16.8 H, Lymphocytes # 0.96 L, Monocytes # 0.5, Eosinophils # 0.0, Absolute Basophils 0.1 12/02/18 23:00: Sodium 132, Plasma Sodium 137, Potassium 4.6 D, Chloride 96 L, Carbon Dioxide 25.6, Anion Gap 15.0 H, BUN 23, Creatinine 1.48 H, Est GFR (Non- Af Amer) 54 L, BUN/Creatinine Ratio 15.5, Random Glucose 416 H, Calcium 9.6, Calcium Adj for Albumin 10.2, Total Bilirubin 0.8, AST 12, ALT 15 L, Alkaline Phosphatase 131, Total Protein 8.8 H, Albumin 2.9 L 12/02/18 23:25: Lactic Acid, Venous 3.2 H* 12/02/18 23:49: Urine Color Yellow, Urine Appearance Clear, Urine pH 6.0, Ur Specific [place] 1.020, Urine Protein >=300 H, Urine Glucose (UA) >=1000 H, Urine Ketones Negative, Urine Blood 25 H, Urine Nitrate Negative, Urine Bilirubin Negative, Prot Sulfosalicylic Acd 4+ H, Urine Urobilinogen Normal, Ur Leukocyte Esterase Negative, Urine RBC 0-5, Urine WBC 0-5, Ur Epithelial Cells 0-5, Urine Bacteria 1+ H, Urine Mucus Moderate - 2+ H, Urine Culture Comments Culture to follow 12/03/18 02:30: Lactic Acid, Venous 2.3 H* 12/03/18 05:45: Creatinine 1.99 H D Discharge Location: Home Disposition: Home self-care Condition: Good Discharge Activity: Activity as tolerated Discharge Diet: Consistent carbs Referrals: David Starks DO [Primary Care Provider] - One Week Nicole Roman DPM [Staff Physician] - 12/03/18 1:00 pm (Appointment already in place) Problem Oriented Discharge Instructions to Patient/Family: Cellulitis, Adult, [id number] Prescriptions (Any new or edited meds): Saccharomyces Boulardii [Florastor] 250 mg PO BID #60 cap Insulin Lispro [Humalog] 17 unit SUBCUT AC #1 vial Insulin Glargine,Hum.rec.anlog [Lantus] 48 unit SUBCUT HS #1 vial Levofloxacin [Levaquin] 750 mg PO Q48H #10 tab Complete Home Medications List: Complete Home Medication List: blood sugar diagnostic strips See Dose Instructions .ROUTE .MEDSUPPLY #300 ea 04/18/18 Aspirin [Aspirin EC] 81 mg PO DAILY 08/06/18 Acetaminophen [Tylenol] 1,000 mg PO Q6H PRN tab 08/07/18 Insulin Glargine,Hum.rec.anlog [Lantus] 48 unit SUBCUT HS #1 vial 12/03/18 Insulin Lispro [Humalog] 17 unit SUBCUT AC #1 vial 12/03/18 Levofloxacin [Levaquin] 750 mg PO Q48H #10 tab 12/03/18 Saccharomyces Boulardii [Florastor] 250 mg PO BID #60 cap 12/03/18
[2018-12-03 12:44] VITALS: BP 143/74
--- NOTE | 2018-12-18 08:48 | HP ---
Chief Complaint - Chief Complaint Date of Service: 12/03/18 Time of Service: 08:00 Chief Complaint: Left leg redness and pain History of Present Illness: Jarod is a 48 yo male with poorly controlled insulin dependent diabetes mellitus Type II with history of diabetic foot neuropathy and recurrent foot ulcers. He has been following with Dr. Roman in the wound clinic and wounds have been improving. He reports that all of a sudden his left leg swelled up, became red, and was hot. He felt fevered and chilled. He also reports nausea and vomiting. He denies any change to activity. He has not been on antibiotics recently. He presented to the ER and was started on levaquin and vancomycin due to the severity of redness extending all the way from his left foot to left thigh the ER requested he be admitted to observation. Medical History (Updated 12/03/18 @ 12:29 by David Starks DO) Cellulitis of left lower extremity Onset Date: Unknown Diabetic foot ulcer Onset Date: 11/26/14 Diabetic neuropathy Onset Date: 11/26/14 HX CARPAL TUNNEL BILATERAL WRISTS MRSA (methicillin resistant Staphylococcus aureus) Onset Date: Unknown Shoulder pain Onset Date: Unknown Type 2 diabetes mellitus Onset Date: 11/26/142004, 11/26/2014 Surgical History: Surgical History (Updated 04/15/18 @ 16:31 by David Starks DO) History of tonsillectomy Onset Date: Unknown age 8 years. Hx of carpal tunnel repair bilateral-1991, 1992 S/P foot surgery, right Onset Date: 03/29/18 amputation right small toe incision and drainage abscess Onset Date: 10/25/[address] Roman lt foot great to, 2nd & 3rd toe amputati rt foot 2 nd digit amputation rt shoulder rotar cuff repair Family History: Family History (Updated 04/02/18 @ 07:16 by Haylee Barber) Mother Diabetes Grandmother Diabetes Other Family history of cancer in father Family history of thyroid disease in mother Father has graduate school education History of non-insulin dependent diabetes mellitus in mother Patient's father is still living mother [place] mother hard of hearing Social History: (Last Reviewed 12/02/18 @ 22:27 by Mac Washington DO) Social History: Marital status: Single household members: none current occupational status: employed 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 Absent: Hematemesis, Abdominal Pain, Constipation, Diarrhea Genitourinary: Present: No Symptoms Reported Musculoskeletal: Present: No Symptoms Reported Neurological: Present: No Symptoms Reported Skin: Present: Change in Color Immunizations: IMMUNIZATION HX Immunizations Up to Date Yes History of Influenza Vaccine No Hx Pneumococcal Vaccination No Allergies/Adverse Reactions: Allergies Allergy/AdvReac Type Severity Reaction Status Date / Time gabapentin AdvReac Mild HYPOTENSION, Verified 12/10/18 11:19 NAUSEA, DIZZINESS WITH INCREASED DOSE Home Medications: HOME MEDICATIONS Aspirin [Aspirin EC] 81 mg PO DAILY 08/06/18 [Last Taken Unknown] Acetaminophen [Tylenol] 1,000 mg PO Q6H PRN tab 08/07/18 [Last Taken Unknown] Levofloxacin [Levaquin] 750 mg PO Q48H #10 tab 12/03/18 [Last Taken Unknown] Saccharomyces Boulardii [Florastor] 250 mg PO BID #60 cap 12/03/18 [Last Taken Unknown] blood sugar diagnostic strips See Dose Instructions .ROUTE .MEDSUPPLY #300 ea 12/10/18 [Last Taken Unknown] insulin glargine (U-100) 100 unit/mL subcutaneous solution 50 unit SUBCUT HS #1 vial 12/10/18 [Last Taken Unknown] insulin lispro (U-100) 100 unit/mL subcutaneous solution 20 unit SUBCUT AC #1 vial 12/10/18 [Last Taken Unknown] losartan 50 mg tablet 50 mg PO DAILY #30 tab 12/10/18 [Last Taken Unknown] Exam - Exam Vital Signs: Vital Signs - Last Taken Selected Entries 12/02/18 22:02 Temperature 36.3 C Pulse Rate 102 H Respiratory Rate 19 Blood Pressure 117/78 O2 Sat by Pulse Oximetry 99 Oxygen Delivery Method Room Air Constitutional: Present: Alert, Oriented x3, Cooperative ENT Exam: Present: hearing grossly normal Eye Exam: bilateral eye: normal inspection Respiratory: Present: lungs clear, normal breath sounds Cardiovascular/Chest: Present: regular rate, rhythm, no murmur Peripheral Pulses: radial (R): 2+, radial (L): 2+ Abdomen: Present: Normal bowel sounds, soft, nontender, nondistended Extremity: Present: other - No erythema present. Mild increased swelling of left lower leg compared to right. Appearance: Present: appropriate appearance, appropriate insight Eye contact: Present: cooperative, good eye contact, normal speech Thoughts: Present: normal thought pattern, no apparent hallucination Diagnostic Studies: Laboratory Results WBC 18.3 K/mm3 (4.0-10.5) H 12/02/18 22:55 RBC 4.96 M/mm3 (4.7-6.0) 12/02/18 22:55 Hgb 13.6 gm/dL (13.5-18.0) 12/02/18 22:55 Hct 41.4 % (42.0-52.0) L 12/02/18 22:55 MCV 83.5 fl (78-100) 12/02/18 22:55 MCH 27.4 pg (27-31) 12/02/18 22:55 MCHC 32.9 g/dl (32-36) 12/02/18 22:55 RDW 14.8 % (11.5-14.0) H 12/02/18 22:55 Plt Count 315 K/mm3 (150-450) 12/02/18 22:55 MPV 10.7 fl (8-11.3) 12/02/18 22:55 Immature Gran % (Auto) 0.40 % (0.001-0.429) 12/02/18 22:55 Immature Gran # (Auto) 0.07 K/mm3 (0.000-0.0310) H 12/02/18 22:55 91.3 % (42-75.0) H 12/02/18 22:55 5.2 % (20-51) L 12/02/18 22:55 2.6 % (0.0-9) 12/02/18 22:55 0.2 % (0.0-3.0) 12/02/18 22:55 0.3 % (0.0-1.0) 12/02/18 22:55 Nucleated RBC % 0.0 k/mm3 (0-1) 12/02/18 22:55 16.8 K/mm3 (1.3-6.0) H 12/02/18 22:55 0.96 k/mm3 (1.5-3.5) L 12/02/18 22:55 0.5 k/mm3 (0.0-1.0) 12/02/18 22:55 0.0 k/mm3 (0.0-0.7) 12/02/18 22:55 Absolute Basophils 0.1 k/mm3 (0.0-0.1) 12/02/18 22:55 Sodium 132 mmol/L (132-142) 12/02/18 23:00 137 mmol/L (130-142) 12/02/18 23:00 Potassium 4.6 mmol/L (3.4-4.6) D 12/02/18 23:00 Chloride 96 mmol/L (97-106) L 12/02/18 23:00 Carbon Dioxide 25.6 mmol/L (24-32.6) 12/02/18 23:00 15.0 mmol/L (6.8-13.8) H 12/02/18 23:00 BUN 23 mg/dL (6-23) 12/02/18 23:00 1.99 mg/dL (0.4-1.4) H D 12/03/18 05:45 Est GFR (Non-Af Amer) 54 mL/min (60-130) L 12/02/18 23:00 15.5 (9.0-21.6) 12/02/18 23:00 416 mg/dL (70-110) H 12/02/18 23:00 2.3 mmol/L (0.4-2.0) H* 12/03/18 02:30 Calcium 9.6 mg/dL (7.9-10.9) 12/02/18 23:00 Calcium Adj for Albumin 10.2 mg/dL (8.4-10.2) 12/02/18 23:00 0.8 mg/dL (0.0-1.1) 12/02/18 23:00 AST 12 U/L (0-48) 12/02/18 23:00 ALT 15 U/L (19-67) L 12/02/18 23:00 131 U/L (50-170) 12/02/18 23:00 8.8 gm/dL (6.2-8.2) H 12/02/18 23:00 2.9 gm/dl (3.4-5.0) L 12/02/18 23:00 Yellow 12/02/18 23:49 Clear (CLEAR) 12/02/18 23:49 6.0 pH (5.0-7.0) 12/02/18 23:49 Ur Specific [place] 1.020 SP.GR. (1.005-1.030) 12/02/18 23:49 >=300 mg/dL (NEGATIVE) H 12/02/18 23:49 >=1000 mg/dL (NEGATIVE) H 12/02/18 23:49 Negative mg/dL (NEGATIVE) 12/02/18 23:49 25 /ul (NEGATIVE) H 12/02/18 23:49 Negative (NEGATIVE) 12/02/18 23:49 Negative mg/dl (NEGATIVE) 12/02/18 23:49 Prot Sulfosalicylic Acd 4+ mg/dL (0) H 12/02/18 23:49 Normal EU/dl (NORMAL) 12/02/18 23:49 Ur Leukocyte Esterase Negative /ul (NEGATIVE) 12/02/18 23:49 0-5 /hpf (0-5) 12/02/18 23:49 0-5 /hpf (0-5) 12/02/18 23:49 Ur Epithelial Cells 0-5 /hpf (0-5) 12/02/18 23:49 1+ (NONE) H 12/02/18 23:49 Moderate - 2+ (NONE) H 12/02/18 23:49 Culture to follow 12/02/18 23:49 Assessment/Plan - Assessment/Plan (1) Cellulitis of leg, left Assessment: Jarod is a 48 yo male that was admitted to observation over night due to extensive left leg cellulitis and given Levaquin and vancomycin in the ER and monitored overnight. This morning his cellulitis is basically resolved. I do not see any erythema and swelling is minimal. He is not having pain in his left leg today. He will be discharged to home with outpatient antibiotics and will see Dr. Roman (Podiatry) in the outpatient wound clinic today to follow up on his chronic wounds to his feet. Problem: Acute
== END 2018-12-03 12:50 | disposition home or self-care (01) ==
LOC: ER 21:45 → MS 12-03 00:17 → INTOOBSV 12-03 00:17 → MS 12-03 01:45
PROVIDERS: ADMIT Internal Medicine; ATTEND Family Medicine
CPT/HCPCS: 36415; 74019; 74020; 80053; 81001; 82565; 83605; 85025; 87040; 87077; 87081; 87086; 87186; 96365; 96366; 96367; 96372; 96375; 99285; G0378; J2405

== ENCOUNTER 2019-10-07 14:41 | Observation (INO) ==
[2019-10-07 15:11] LABS: Hematocrit 40.8 % (42.0-52.0); Hemoglobin 12.6 gm/dL (13.5-18.0); Mean Cell Volume 85.4 fl (78-100); Mean Corpuscular Hemoglobin 26.4 pg (27-31); Mean Corpuscular Hgb Conc 30.9 g/dl (32-36); Neutrophil # 4.4 K/mm3 (1.3-6.0); Neutrophil % 57.3 % (42-75.0); Platelet Count 330 K/mm3 (150-450); Red Blood Count 4.78 M/mm3 (4.7-6.0); Red Cell Distribution Width 14.1 % (11.5-14.0); White Blood Count 7.6 K/mm3 (4.0-10.5)
[2019-10-07] MEDS ORDERED: NITROGLYCERIN 0.4 MG/TAB BTL SL ONE (15:19)
[2019-10-07] MEDS ORDERED: ASPIRIN 81 MG TAB.CHEW PO ONE (15:19)
[2019-10-07 15:33] LABS: Albumin * 2.7 gm/dl (3.4-5.0); Anion Gap 9.7 mmol/L (6.8-13.8); BUN/Creatinine Ratio 25.2 (9.0-21.6); Bilirubin, Total 0.3 mg/dL (0.0-1.1); Ca. Corrected For Albumin 9.6 mg/dL (8.4-10.2); Calcium * 8.9 mg/dL (7.9-10.9); Carbon Dioxide 29.6 mmol/L (24-32.6); Potassium 4.3 mmol/L (3.4-4.6); Total Protein 7.7 gm/dL (6.2-8.2)
[2019-10-07 15:35] LABS: Troponin I 0.073 ng/mL (0.00-0.10)
--- NOTE | 2019-10-07 17:31 | ERNOTE ---
<Oliverio Flannery - Last Filed: 10/07/19 18:42> Chest Pain/Cardiac HPI Date of Service: 10/07/19 Chief Complaint: Chest Pain Time Seen by Provider: 10/07/19 15:07 Source: patient Exam Limitations: no limitations Immunizations: IMMUNIZATION HX Immunizations Up to Date Yes History of Influenza Vaccine More Information Required Hx Pneumococcal Vaccination More Information Required Allergies/Adverse Reactions: Allergies gabapentin Adverse Reaction (Mild, Verified 10/07/19 14:51) HYPOTENSION, NAUSEA, DIZZINESS WITH INCREASED DOSE Home Medications: HOME MEDICATIONS Acetaminophen [Tylenol] 1,000 mg PO Q6H PRN tab 08/07/18 [Last Taken Unknown] blood sugar diagnostic See Dose Instructions .ROUTE .MEDSUPPLY #300 ea 07/14/19 [Last Taken Unknown] insulin syringes (disposable) 1 mL See Rx Instructions .ROUTE .MEDSUPPLY #500 ea 07/14/19 [Last Taken Unknown] lancets 31 gauge See Rx Instructions .ROUTE .MEDSUPPLY #100 ea 07/14/19 [Last Taken Unknown] metformin 500 mg tablet 500 mg PO BID #60 tab 07/29/19 [Last Taken Unknown] losartan 100 mg tablet 100 mg PO DAILY #90 tab 09/09/19 [Last Taken Unknown] insulin glargine 100 unit/mL subcutaneous solution 50 unit SUBCUT HS #20 ml 10/02/19 [Last Taken Unknown] Insulin Lispro [Humalog] See Protocol SUBCUT AC 10/07/19 [Last Taken Unknown] Narrative: patient present from dr beyer office with c/o excertional chest pain for last several weeks, pain has subsided somewhar since arrival Timing: intermittent, other - pain has improved somewhat Severity/Quality: dull, pressure Location: central Chest Pain Radiation: no radiation Activities at Onset: activity Modifying Factors - Improves: Present: rest Modifying Factors - Worsens: Present: exercise Nitro Today/Relief: no nitro taken today Aspirin Treatment Today: no aspirin today Associated Symptoms: Present: denies symptoms Prior Chest Pain/Cardiac Workup: Reports: prior chest pain Prior Treatment: Reports: recently seen, treated by physician Review of Systems - Review of Systems Constitutional: Present: See HPI, weakness, fatigue, malaise EYE: Present: no symptoms reported ENT: Present: no symptoms reported Respiratory: Present: no symptoms reported Cardiology: Present: chest pain Gastrointestinal/Abdominal: Present: no symptoms reported Genitourinary: Present: no symptoms reported Musculoskeletal: Present: no symptoms reported Skin: Present: no symptoms reported Neurological: Present: no symptoms reported Endocrine: Present: no symptoms reported Hematologic/Lymphatic: Present: no symptoms reported Psych: Present: no symptoms reported All Other Systems: All systems neg except as marked Medical History (Last Reviewed 10/07/19 @ 15:10 by Lorie Hermosillo RN) Community acquired pneumonia of right lower lobe of lung (Acute) Onset Date: 07/03/19 Thoracic ascending aortic aneurysm (Acute) Onset Date: 07/03/19 4.1 cm Type 2 diabetes mellitus (Chronic) Onset Date: 2004 2004, 11/26/2014 Diabetic neuropathy (Chronic) Onset Date: 11/26/14 Diabetic ulcer of left foot associated with diabetes mellitus due to underlying condition, with fat layer exposed (Chronic) Onset Date: 08/06/18 Skin erythema (Chronic) Cellulitis and abscess of left leg (Acute) Onset Date: 12/03/18 Diabetes mellitus type 2 in obese (Chronic) Chronic foot ulcer (Chronic) Failure of outpatient treatment (Chronic) Cellulitis of foot (Acute) Hypertension (Chronic) Hyperlipidemia (Chronic) Obesity (Chronic) Cellulitis of fifth toe, right Cellulitis of right leg Diabetic foot ulcer Onset Date: 11/26/14 Diabetic ulcer of foot associated with diabetes mellitus due to underlying condition, limited to breakdown of skin Diabetes mellitus out of control Diabetic foot ulcer Diabetic ulcer of both feet associated with type 2 diabetes mellitus Gas gangrene Onset Date: 09/24/18 Osteomyelitis Acute renal failure Acute thoracic back pain Onset Date: 10/08/15 Cellulitis of left foot Cellulitis of left leg Cellulitis of left lower extremity Onset Date: 04/02/18 Cellulitis of leg, left Onset Date: 09/07/18 Discharge planning issues History of MRI Onset Date: 04/20/19 [facility]. Impression: Extensive severe infection and inflammation of the foot with multifocal septated abscess collections in the dorsal distal foot with superimposed osteomyelitis of the distal metatarsals. History of amputation of toe Right foot, second digit. 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 History of amputation of left great toe Left foot. History of amputation of toe Onset Date: Unknown Left foot, second and third. History of bilateral carpal tunnel release Onset Date: ~1992 History of incision and drainage Onset Date: 04/22/19 Dr. Richelle Davis, [facility]. Left foot. History of repair of right rotator cuff History of tonsillectomy Onset Date: Unknown age 8 years. S/P foot surgery, right Onset Date: 03/29/18 amputation right small toe Status post excisional debridement Onset Date: 04/19/19 Dr. José Antonio Granados, [facility]. incision and drainage abscess Onset Date: 10/25/[address] 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 [employer] Highest education level completed: Associate degree: academi Service: No Tobacco: Smoking Status: Former smoker Alcohol: alcohol intake: former Substance Use: substance use type: does not use Dietary Habits: caffeine: Yes Type: coffee Physical Exam - Physical Exam General Appearance: Present: mild distress, anxious Head Exam: Present: normal inspection, no evidence of injury Eye Exam: Normal inspection: bilateral, PERRL: bilateral, EOMI: bilateral Ears, Nose, Throat: Present: normal ENT inspection, normal pharynx Neck: Present: normal inspection, nontender Respiratory: Present: no respiratory distress, normal breath sounds, no accessory muscle use, chest tenderness Cardiovascular/Chest: Present: regular rate, rhythm, no murmur, normal peripheral pulses Gastrointestinal/Abdominal: Present: normal bowel sounds, nontender, nondistended, soft, no organomegaly Back Exam: Present: normal inspection, normal range of motion, no CVA tenderness, no vertebral tenderness Extremity Exam: Present: normal inspection, non-tender, normal range of motion, other - stasis ulcer left foot Neurological Exam: Present: alert, oriented, normal mood/affect, no motor/sensory deficits Skin Exam: Present: normal color, warm/dry Lymphatic Exam: Present: no adenopathy Progress - Date and Time Seen: Date and Time: 10/07/19 18:42 condition improved - Results and Orders Patient's Lab Results:: I have reviewed the patient's lab results. - Vital Signs Patient's Vital Signs:: I have reviewed the patient's vital signs. Vital Signs: Vital Signs 10/07/19 14:48 10/07/19 14:51 10/07/19 15:21 Temperature 36.5 C Pulse Rate 70 71 74 Respiratory Rate 18 20 20 Blood Pressure 169/101 H 146/66 H 167/78 H O2 Sat by Pulse Oximetry 98 97 97 10/07/19 16:18 10/07/19 16:30 10/07/19 16:38 Temperature 36.7 C Pulse Rate 69 74 74 Respiratory Rate 20 20 16 Blood Pressure 161/64 H 164/67 H 168/64 H O2 Sat by Pulse Oximetry 98 97 97 10/07/19 17:00 Temperature Pulse Rate 87 Respiratory Rate 20 Blood Pressure 161/74 H O2 Sat by Pulse Oximetry 98 - EKG EKG #1 EKG: NSR - X-Ray X-Ray #1 X-Ray: chest - no acute process - Progress/Reassessment Chief Complaint: Chest Pain Progress:: Improved - Transfer of Care Physician Sign Out: Oliverio Flannery Receiving Physician: Mac Washington Expected Disposition: Discharge Plan - Plan Plan: to be discharged Departure Clinical Impression: Chest pain - Departure Disposition: Still a patient Condition: Stable <Mac Washington - Last Filed: 10/08/19 03:34> Chest Pain/Cardiac HPI Immunizations: IMMUNIZATION HX Immunizations Up to Date Yes History of Influenza Vaccine More Information Required Hx Pneumococcal Vaccination More Information Required Medical History (Last Reviewed 10/07/19 @ 21:38 by Rona Jacobson RN) Community acquired pneumonia of right lower lobe of lung (Acute) Onset Date: 07/03/19 Thoracic ascending aortic aneurysm (Acute) Onset Date: 07/03/19 4.1 cm Type 2 diabetes mellitus (Chronic) Onset Date: 2004 2004, 11/26/2014 Diabetic neuropathy (Chronic) Onset Date: 11/26/14 Diabetic ulcer of left foot associated with diabetes mellitus due to underlying condition, with fat layer exposed (Chronic) Onset Date: 08/06/18 Skin erythema (Chronic) Cellulitis and abscess of left leg (Acute) Onset Date: 12/03/18 Diabetes mellitus type 2 in obese (Chronic) Chronic foot ulcer (Chronic) Failure of outpatient treatment (Chronic) Cellulitis of foot (Acute) Hypertension (Chronic) Hyperlipidemia (Chronic) Obesity (Chronic) Cellulitis of fifth toe, right Cellulitis of right leg Diabetic foot ulcer Onset Date: 11/26/14 Diabetic ulcer of foot associated with diabetes mellitus due to underlying condition, limited to breakdown of skin Diabetes mellitus out of control Diabetic foot ulcer Diabetic ulcer of both feet associated with type 2 diabetes mellitus Gas gangrene Onset Date: 09/24/18 Osteomyelitis Acute renal failure Acute thoracic back pain Onset Date: 10/08/15 Cellulitis of left foot Cellulitis of left leg Cellulitis of left lower extremity Onset Date: 04/02/18 Cellulitis of leg, left Onset Date: 09/07/18 Discharge planning issues History of MRI Onset Date: 04/20/19 [facility]. Impression: Extensive severe infection and inflammation of the foot with multifocal septated abscess collections in the dorsal distal foot with superimposed osteomyelitis of the distal metatarsals. History of amputation of toe Right foot, second digit. 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 History of amputation of left great toe Left foot. History of amputation of toe Onset Date: Unknown Left foot, second and third. History of bilateral carpal tunnel release Onset Date: ~1992 History of incision and drainage Onset Date: 04/22/19 Dr. Richelle Davis, [facility]. Left foot. History of repair of right rotator cuff History of tonsillectomy Onset Date: Unknown age 8 years. S/P foot surgery, right Onset Date: 03/29/18 amputation right small toe Status post excisional debridement Onset Date: 04/19/19 Dr. José Antonio Granados, [facility]. incision and drainage abscess Onset Date: 10/25/[address] 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 [employer] Highest education level completed: Associate degree: academi Service: No Tobacco: Smoking Status: Former smoker Alcohol: alcohol intake: former Substance Use: substance use type: does not use Dietary Habits: caffeine: Yes Type: coffee Physical Exam - Physical Exam General Appearance: Present: wd/wn, alert, no apparent distress Head Exam: Present: normal inspection, no evidence of injury Respiratory: Present: no respiratory distress, no accessory muscle use Extremity Exam: Present: normal inspection, normal range of motion Neurological Exam: Present: alert, oriented, normal mood/affect Skin Exam: Present: normal color, warm/dry Progress - Results and Orders Patient's Lab Results:: I have reviewed the patient's lab results. - Vital Signs Patient's Vital Signs:: I have reviewed the patient's vital signs. Vital Signs: Vital Signs 10/07/19 14:48 10/07/19 14:51 10/07/19 15:21 Temperature 36.5 C Pulse Rate 70 71 74 Respiratory Rate 18 20 20 Blood Pressure 169/101 H 146/66 H 167/78 H O2 Sat by Pulse Oximetry 98 97 97 10/07/19 16:18 10/07/19 16:30 10/07/19 16:38 Temperature 36.7 C Pulse Rate 69 74 74 Respiratory Rate 20 20 16 Blood Pressure 161/64 H 164/67 H 168/64 H O2 Sat by Pulse Oximetry 98 97 97 10/07/19 17:00 10/07/19 19:00 10/07/19 19:44 Temperature Pulse Rate 87 65 72 Respiratory Rate 20 11 L 20 Blood Pressure 161/74 H 168/78 H O2 Sat by Pulse Oximetry 98 99 94 - EKG EKG #1 EKG: RBBB EKG read: Reviewed by me - Progress/Reassessment Progress Note-Subjective: 10/07/19 20:[address] Yoo she agrees with observation admission and repeat troponin. Mac Washington DO
[2019-10-08] MEDS ORDERED: ACETAMINOPHEN 500 MG TABLET PO PRN (08:47)
[2019-10-08] MEDS ORDERED: FUROSEMIDE 10 MG/ML VIAL IV ONE (08:50)
[2019-10-08] MEDS ORDERED: metFORMIN HCL 500 MG TABLET PO SCH (09:00)
[2019-10-08] MEDS ORDERED: LOSARTAN POTASSIUM 50 MG TABLET PO SCH (09:00)
--- NOTE | 2019-10-08 12:33 | HPDIS ---
Chief Complaint - Chief Complaint Date of Service: 10/08/19 Time of Service: 08:00 Chief Complaint: Shortness of breath, chest tightness History of Present Illness: Jarod is an insulin dependent diabetic who presented to the clinic yesterday for blood pressure follow up and presented with significant shortness of breath and chest tightness. He was taken to the Emergency Room and evaluated. EKG and troponins were normal, chest xray showed some increase vascularity. He reports worsening shortness of breath with activities for the last week. Medical History (Last Reviewed 10/07/19 @ 21:38 by Rona Jacobson RN) Community acquired pneumonia of right lower lobe of lung (Acute) Onset Date: 07/03/19 Thoracic ascending aortic aneurysm (Acute) Onset Date: 07/03/19 4.1 cm Type 2 diabetes mellitus (Chronic) Onset Date: 2004 2004, 11/26/2014 Diabetic neuropathy (Chronic) Onset Date: 11/26/14 Diabetic ulcer of left foot associated with diabetes mellitus due to underlying condition, with fat layer exposed (Chronic) Onset Date: 08/06/18 Skin erythema (Chronic) Cellulitis and abscess of left leg (Acute) Onset Date: 12/03/18 Diabetes mellitus type 2 in obese (Chronic) Chronic foot ulcer (Chronic) Failure of outpatient treatment (Chronic) Cellulitis of foot (Acute) Hypertension (Chronic) Hyperlipidemia (Chronic) Obesity (Chronic) Cellulitis of fifth toe, right Cellulitis of right leg Diabetic foot ulcer Onset Date: 11/26/14 Diabetic ulcer of foot associated with diabetes mellitus due to underlying condition, limited to breakdown of skin Diabetes mellitus out of control Diabetic foot ulcer Diabetic ulcer of both feet associated with type 2 diabetes mellitus Gas gangrene Onset Date: 09/24/18 Osteomyelitis Acute renal failure Acute thoracic back pain Onset Date: 10/08/15 Cellulitis of left foot Cellulitis of left leg Cellulitis of left lower extremity Onset Date: 04/02/18 Cellulitis of leg, left Onset Date: 09/07/18 Discharge planning issues History of MRI Onset Date: 04/20/19 [facility]. Impression: Extensive severe infection and inflammation of the foot with multifocal septated abscess collections in the dorsal distal foot with superimposed osteomyelitis of the distal metatarsals. History of amputation of toe Right foot, second digit. 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 History of amputation of left great toe Left foot. History of amputation of toe Onset Date: Unknown Left foot, second and third. History of bilateral carpal tunnel release Onset Date: ~1992 History of incision and drainage Onset Date: 04/22/19 Dr. Richelle Davis, [facility]. Left foot. History of repair of right rotator cuff History of tonsillectomy Onset Date: Unknown age 8 years. S/P foot surgery, right Onset Date: 03/29/18 amputation right small toe Status post excisional debridement Onset Date: 04/19/19 Dr. José Antonio Granados, [facility]. incision and drainage abscess Onset Date: 10/25/[address] Roman Post-operative state Family History: Family History (Last Reviewed 10/07/19 @ 15:11 by Lorie Hermosillo, RN) Mother Diabetes Grandmother Diabetes Other Family history of cancer in father Family history of thyroid disease in mother Father has graduate school education History of non-insulin dependent diabetes mellitus in mother Patient's father is still living mother [facility] mother hard of hearing Social History: (Last Reviewed 10/07/19 @ 15:11 by Lorie Hermosillo, RN) Social History: Marital status: Single household members: none current occupational status: employed 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 Absent: Chills, Fever EENTM: Present: No Symptoms Reported Respiratory: Present: Cough, Shortness of Breath. Absent: Wheezing Cardiac: Present: Chest Pain, Edema. Absent: Palpitations, Syncope Abdominal: Absent: Nausea, Vomiting Genitourinary: Present: No Symptoms Reported Neurological: Present: No Symptoms Reported Skin: Present: No Symptoms Reported Immunizations: IMMUNIZATION HX Immunizations Up to Date Yes History of Influenza Vaccine More Information Required Hx Pneumococcal Vaccination More Information Required Allergies/Adverse Reactions: Allergies Allergy/AdvReac Type Severity Reaction Status Date / Time gabapentin AdvReac Mild HYPOTENSION, Verified 10/07/19 14:51 NAUSEA, DIZZINESS WITH INCREASED DOSE Home Medications: HOME MEDICATIONS Acetaminophen [Tylenol] 1,000 mg PO Q6H PRN tab 08/07/18 [Last Taken Unknown] blood sugar diagnostic See Dose Instructions .ROUTE .MEDSUPPLY #300 ea 07/14/19 [Last Taken Unknown] insulin syringes (disposable) 1 mL See Rx Instructions .ROUTE .MEDSUPPLY #500 ea 07/14/19 [Last Taken Unknown] lancets 31 gauge See Rx Instructions .ROUTE .MEDSUPPLY #100 ea 07/14/19 [Last Taken Unknown] metformin 500 mg tablet 500 mg PO BID #60 tab 07/29/19 [Last Taken Unknown] losartan 100 mg tablet 100 mg PO DAILY #90 tab 09/09/19 [Last Taken Unknown] insulin glargine 100 unit/mL subcutaneous solution 50 unit SUBCUT HS #20 ml 10/02/19 [Last Taken Unknown] Insulin Lispro [Humalog] See Protocol SUBCUT AC 10/07/19 [Last Taken Unknown] Furosemide [Lasix] 40 mg PO DAILY PRN #30 tab 10/08/19 [Last Taken Unknown] Exam - Exam Vital Signs: Vital Signs - Last Taken Temp 37.1 C 10/08/19 07:12 Pulse 77 10/08/19 09:16 Resp 20 10/08/19 07:12 BP 152/69 H 10/08/19 09:16 Pulse Ox 96 10/08/19 07:12 Constitutional: Present: Alert, Oriented x3, Cooperative ENT Exam: Present: hearing grossly normal Eye Exam: bilateral eye: normal inspection Respiratory: Present: lungs clear, normal breath sounds, no respiratory distress Cardiovascular/Chest: Present: regular rate, rhythm, no murmur Peripheral Pulses: radial (R): 2+, radial (L): 2+ Abdomen: Present: Normal bowel sounds, soft, nontender, nondistended Extremity: Present: lower extremity edema - 3+ Skin Exam: Present: normal color, warm/dry, no cyanosis Eye contact: Present: cooperative, good eye contact, normal speech Thoughts: Present: normal thought pattern, no apparent hallucination Diagnostic Studies: Abnormal Lab Results 10/07/19 10/07/19 Range/Units 15:06 15:06 Hgb 12.6 L (13.5-18.0) gm/dL Hct 40.8 L (42.0-52.0) % MCH 26.4 L (27-31) pg MCHC 30.9 L (32-36) g/dl RDW 14.1 H (11.5-14.0) % Eosinophils % 4.2 H (0.0-3.0) % BUN 30 H (6-23) mg/dL BUN/Creatinine Ratio 25.2 H (9.0-21.6) Random Glucose 178 H (70-110) mg/dL Albumin 2.7 L (3.4-5.0) gm/dl Laboratory Results WBC 7.6 K/mm3 (4.0-10.5) 10/07/19 15:06 RBC 4.78 M/mm3 (4.7-6.0) 10/07/19 15:06 Hgb 12.6 gm/dL (13.5-18.0) L 10/07/19 15:06 Hct 40.8 % (42.0-52.0) L 10/07/19 15:06 MCV 85.4 fl (78-100) 10/07/19 15:06 MCH 26.4 pg (27-31) L 10/07/19 15:06 MCHC 30.9 g/dl (32-36) L 10/07/19 15:06 RDW 14.1 % (11.5-14.0) H 10/07/19 15:06 Plt Count 330 K/mm3 (150-450) 10/07/19 15:06 MPV 10.0 fl (8-11.3) 10/07/19 15:06 Immature Gran % (Auto) 0.30 % (0.001-0.429) 10/07/19 15:06 Immature Gran # (Auto) 0.02 K/mm3 (0.000-0.0310) 10/07/19 15:06 Neutrophils % 57.3 % (42-75.0) 10/07/19 15:06 Lymphocytes % 30.7 % (20-51) 10/07/19 15:06 Monocytes % 7.0 % (0.0-9) 10/07/19 15:06 Eosinophils % 4.2 % (0.0-3.0) H 10/07/19 15:06 Basophils % 0.5 % (0.0-1.0) 10/07/19 15:06 Nucleated RBC % 0.0 k/mm3 (0-1) 10/07/19 15:06 Neutrophils # 4.4 K/mm3 (1.3-6.0) 10/07/19 15:06 Lymphocytes # 2.34 k/mm3 (1.5-3.5) 10/07/19 15:06 Monocytes # 0.5 k/mm3 (0.0-1.0) 10/07/19 15:06 Eosinophils # 0.3 k/mm3 (0.0-0.7) 10/07/19 15:06 Absolute Basophils 0.0 k/mm3 (0.0-0.1) 10/07/19 15:06 Sodium 140 mmol/L (132-142) 10/07/19 15:06 Plasma Sodium 141 mmol/L (130-142) 10/07/19 15:06 Potassium 4.3 mmol/L (3.4-4.6) 10/07/19 15:06 Chloride 105 mmol/L (97-106) 10/07/19 15:06 Carbon Dioxide 29.6 mmol/L (24-32.6) 10/07/19 15:06 Anion Gap 9.7 mmol/L (6.8-13.8) 10/07/19 15:06 BUN 30 mg/dL (6-23) H 10/07/19 15:06 Creatinine 1.19 mg/dL (0.4-1.4) 10/07/19 15:06 Est GFR (Non-Af Amer) 69 mL/min (60-130) 10/07/19 15:06 BUN/Creatinine Ratio 25.2 (9.0-21.6) H 10/07/19 15:06 Random Glucose 178 mg/dL (70-110) H 10/07/19 15:06 Calcium 8.9 mg/dL (7.9-10.9) 10/07/19 15:06 Calcium Adj for Albumin 9.6 mg/dL (8.4-10.2) 10/07/19 15:06 Total Bilirubin 0.3 mg/dL (0.0-1.1) 10/07/19 15:06 AST 18 U/L (0-48) 10/07/19 15:06 ALT 23 U/L (19-67) 10/07/19 15:06 Alkaline Phosphatase 129 U/L (50-170) 10/07/19 15:06 Troponin I 0.078 ng/mL (0.00-0.10) 10/08/19 07:35 Total Protein 7.7 gm/dL (6.2-8.2) 10/07/19 15:06 Albumin 2.7 gm/dl (3.4-5.0) L 10/07/19 15:06 Assessment/Plan - Narrative Narrative: Jarod is a 49 yo male with insulin dependent diabetes mellitus. He was admitted overnight for chest pain. Initial work up was negative for acute CO. Chest xray should slight increased vascularization. His troponins were trended overnight every 6 hours and remained normal. His shortness of breath is better but still present. He reports chest tightness is also better. He was admitted to observation. I will trial a dose of lasix as he is fluid up and this may be causing his symptoms of shortness of breath, chest tightness, and lower extremity edema. I will plan to discharge him later this morning. - Assessment/Plan (1) Chest pain Problem: Acute Qualifiers: Chest pain type: unspecified Qualified Code(s): R07.9 - Chest pain, unspecified (2) Insulin dependent diabetes mellitus Problem: Chronic (1) Chest pain Problem: Acute Qualifiers: Chest pain type: unspecified Qualified Code(s): R07.9 - Chest pain, unspecified (2) Insulin dependent diabetes mellitus Problem: Chronic Date of Discharge:: 10/08/19 Hospital Course: Jarod was admitted for chest pain after his initial work up was negative for acute CO in the ER. He was placed on telemetry and had serial troponins that remained normal. He is feeling better this morning although still a little short of breath with activity and some chest tightness. He was given a dose of IV lasix 40mg and diuresed a large amount of fluid. He now feels even better. I suspect increased fluid to be a cause to his symptoms and I will discharge him with lasix to use prn at home. I will plan to get an outpatient echocardiogram. He will follow up with me in a week. He was educated to avoid salt. Procedures Performed: none Results and Findings: Lab Pending Results 10/07/19 15:06: WBC 7.6, RBC 4.78, Hgb 12.6 L, Hct 40.8 L, MCV 85.4, MCH 26.4 L, MCHC 30.9 L, RDW 14.1 H, Plt Count 330, MPV 10.0, Immature Gran % (Auto) 0.30, Immature Gran # (Auto) 0.02, Neutrophils % 57.3, Lymphocytes % 30.7, Monocytes % 7.0, Eosinophils % 4.2 H, Basophils % 0.5, Nucleated RBC % 0.0, Neutrophils # 4.4, Lymphocytes # 2.34, Monocytes # 0.5, Eosinophils # 0.3, Absolute Basophils 0.0 10/07/19 15:06: Sodium 140, Plasma Sodium 141, Potassium 4.3, Chloride 105, Carbon Dioxide 29.6, Anion Gap 9.7, BUN 30 H, Creatinine 1.19, Est GFR (Non-Af A ev) 69, BUN/Creatinine Ratio 25.2 H, Random Glucose 178 H, Calcium 8.9, Calcium Adj for Albumin 9.6, Total Bilirubin 0.3, AST 18, ALT 23, Alkaline Phosphatase 129, Troponin I 0.073, Total Protein 7.7, Albumin 2.7 L 10/07/19 19:08: Troponin I 0.085 10/08/19 01:05: Troponin I 0.088 10/08/19 07:35: Troponin I 0.078 Discharge Location: Home Disposition: Home self-care Condition: Stable Discharge Activity: Activity as tolerated Discharge Diet: Consistent carbs, Low salt Referrals: David Starks DO [Primary Care Provider] - One Week Problem Oriented Discharge Instructions to Patient/Family: Nonspecific Chest Pain, Adult, [id number] Prescriptions (Any new or edited meds): Furosemide [Lasix] 40 mg PO DAILY PRN #30 tab PRN Reason: swelling, shortness of breath Transmission Status: Pending to [facility] Complete Home Medications List: Complete Home Medication List: Acetaminophen [Tylenol] 1,000 mg PO Q6H PRN tab 08/07/18 blood sugar diagnostic See Dose Instructions .ROUTE .MEDSUPPLY #300 ea 07/14/19 insulin syringes (disposable) 1 mL See Rx Instructions .ROUTE .MEDSUPPLY #500 ea 07/14/19 lancets 31 gauge See Rx Instructions .ROUTE .MEDSUPPLY #100 ea 07/14/19 metformin 500 mg tablet 500 mg PO BID #60 tab 07/29/19 losartan 100 mg tablet 100 mg PO DAILY #90 tab 09/09/19 insulin glargine 100 unit/mL subcutaneous solution 50 unit SUBCUT HS #20 ml 10/02/19 Insulin Lispro [Humalog] See Protocol SUBCUT AC 10/07/19 Furosemide [Lasix] 40 mg PO DAILY PRN #30 tab 10/08/19
[2019-10-08 13:26] VITALS: BP 157/88
[2019-10-08] MEDS ORDERED: INSULIN GLARGINE,HUM.REC.ANLOG 100 UNITS/ML VIAL SC SCH (21:00)
== END 2019-10-08 13:15 | disposition home or self-care (01) ==
LOC: MS 14:41 → ER 14:41 → MS 20:55
PROVIDERS: ADMIT Family Medicine; ATTEND Family Medicine
DX: E11.8 Type 2 diabetes mellitus with unspecified complications; Z79.4 Long term (current) use of insulin; R07.9 Chest pain, unspecified; R06.02 Shortness of breath
CPT/HCPCS: 36415; 71020; 71046; 80053; 84484; 85025; 87081; 93005; 96374; 99284; 99285; G0378